=== PATIENT | female | born 1955 | race Caucasian/White ===

== ENCOUNTER 2021-10-04 08:24 | Inpatient (IN) | payer OTHER, SELFPAY ==
[2021-10-04] VITALS (37 sets, daily range): BP systolic 93–125; BP diastolic 46–69; PULSE 70–96; RESP 14–35; TEMP 36.1–36.4; O2SAT 89–100; BMI 28.5
--- NOTE | ~2021-10-04 | US_ITS ---
EXAMINATION: US right upper quadrant DATE: 10/04/2021 15:53 INDICATION: Abdominal pain. TECHNIQUE: Multiple grayscale and Doppler ultrasound images of the abdomen were obtained. COMPARISON: CT abdomen and pelvis 10/04/2021 FINDINGS: The visualized portions of the head and body of the pancreas are normal. The liver is arnold l without focal lesion. No liver surface nodularity. There is normal flow in main portal vein. The ga llbladder is normal in size and contains gallstones. No gallbladder wall thickening or sonographic Mu rphy sign. The common duct is normal and measures 6 mm. IMPRESSION: 1. Cholelithiasis. No evidence of acute cholecystitis. Reviewed, dictated and finalized at location B. NESS PROGRAMMER
--- NOTE | ~2021-10-04 | CT_ITS ---
EXAMINATION: CT abdomen pelvis wo con EXAM DATE: 10/04/2021 11:03 INDICATION: Abdominal pain, fall. Altered mental status. TECHNIQUE: Spiral CT of the abdomen and pelvis was performed without contrast. Axial, coronal and s agittal images of the abdomen and pelvis were reviewed. The dose-length product (DLP) for this [facility] was 395.73 mGy-cm. The exposure was tailored according to patient size (auto mA exposure cont rol), and iterative reconstruction (ASIR) was used as additional dose reduction technique. There is no prior study for comparison. FINDINGS: The liver, spleen, adrenal glands and pancreas are unremarkable. Multiple gallstones, gall bladder is moderately distended. No adjacent inflammation. There is punctate right superior calyceal stone. No ureteral stones or hydronephrosis. The uterus is not identified and has likely been surgi sandra resected. The bladder is collapsed with Alonzo catheter balloon anchor inside. There is no ret roperitoneal or pelvic lymphadenopathy. There is mild scattered arteriosclerotic disease. There is colectomy with right lower quadrant ileostomy. The stomach and small bowel are unremarkable . No free intraperitoneal gas. The heart is normal in size. There are no pericardial or pleural effusions. The lung bases are unremarkable. There is L2 burst fracture with moderate to severe loss of this vertebral body height centrally, mild loss of the height anteriorly and posteriorly. There i s about 3 mm retropulsion of the superior half of this vertebral body, causing mild central canal [place] nosis. This is most likely chronic. There are no acute fractures identified. IMPRESSION: 1. No acute solid organ injury or fracture suspected. 2. L2 burst fracture which appears most likely chronic, mild retropulsion and central canal stenosis . 3. Cholelithiasis, moderate ascites gallbladder but no adjacent inflammation. 4. Colectomy, ileostomy. 5. Punctate right nephrolithiasis. Reviewed, dictated and finalized at location A. ESQUE DANCER IMPRESSION: 1. No acute solid organ injury or fracture suspected. 2. L2 burst fracture which appears most likely chronic, mild retropulsion and central canal stenosis. 3. Cholelithiasis, moderate ascites gallbladder but no adjacent inflammation. 4. Colectomy, ileostomy. 5. Punctate right nephrolithiasis.
--- NOTE | ~2021-10-04 | CT_ITS ---
EXAMINATION: CT brain wo con EXAM DATE: 10/04/2021 09:30 INDICATION: Head impact, injury. TECHNIQUE: Spiral CT of the head was performed without contrast. Axial, coronal and sagittal images were reviewed. The dose-length product (DLP) for this examination was 681.00 mGy-cm. The exposure w as tailored according to patient size, and iterative reconstruction (ASIR) was used as additional dos e reduction technique. There is no prior study for comparison. FINDINGS: There is no acute intraparenchymal hemorrhage. No evidence of intraparenchymal brain mass lesion. No evidence of acute infarction. Please note that initial head CT has limited sensitivity f or small or acute infarctions. Small old right cerebellar infarction. There is moderate periventric ular and subcortical hypodensity, nonspecific but probably related to small vessel ischemic disease. There is mild prominence of the sulci and ventricles related to cerebral atrophy. There is intrac ranial carotid arteriosclerosis. There are no extra-axial collections. There is no mass effect or m idline shift. The orbits are unremarkable. Soft tissue is unremarkable. The visualized sinuses and mastoid air cells are well aerated. IMPRESSION: 1. No acute intracranial findings. 2. Chronic age related findings. 3. Small old right cerebellar infarction. Reviewed, dictated and finalized at location A. IGRAPH OPERATOR
--- NOTE | ~2021-10-04 | XR_ITS ---
EXAMINATION: XR chest 1V DATE: 10/04/2021 09:39 INDICATION: Fatigue. Very sleepy. TECHNIQUE: frontal view of the chest was obtained. COMPARISON: None FINDINGS: The lungs are clear with no focal airspace opacities, pulmonary edema, pleural effusion or pneumothor ax. The cardiomediastinal silhouette is normal. Visualized bones and soft tissues are unremarkable. IMPRESSION: 1. No acute cardiopulmonary disease. Reviewed, dictated and finalized at location A. ERTY MANAGEMENT SUPERVISOR
--- NOTE | ~2021-10-04 | US_ITS ---
EXAMINATION: US renal BI DATE: 10/04/2021 15:55 INDICATION: Acute kidney injury. TECHNIQUE: Multiple ultrasound grayscale images of the kidneys were obtained. COMPARISON: CT abdomen and pelvis 10/04/2021 FINDINGS: The right kidney measures 10.5 x 5.0 x 6.0 cm. The left kidney measures 10.9 x 4.4 x 6.3 cm. The kidn eys demonstrate normal parenchymal echogenicity. There is no hydronephrosis. The bladder is normal. IMPRESSION: 1. Normal kidney sizes. No hydronephrosis. Reviewed, dictated and finalized at location B. CINE AND HEALTH SERVICE MANAGER
--- NOTE | 2021-10-04 09:43 | ED.GENADULT ---
HPI - General Adult General Chief complaint: Fall Stated complaint: fall Time Seen by Provider: 10/04/21 09:02 Source: patient, EMS and RN notes reviewed Mode of arrival: EMS Limitations: dementia History of Present Illness HPI narrative: Patient is a 66-year-old female coming from [facility] for chief complaint of throwing herself once of the floor in the dining room. EMS reported that the patient is alert to self which is her baseline. They report she has bruising over the left brow. They are not sure if this is from the fall in the dining room or patient's other recurrent falls. Patient reports that she has abdominal pain. They reported the patient is currently being treated for a UTI, but no antibiotics are noted to her medication list. Patient reports she has a ileostomy due to colon resection due to colon cancer. Patient denies any chest pain, cough or other areas of pain. Patient has an indwelling Alonzo catheter. Patient denies recently testing positive for COVID. Related Data Home Medications Medication Instructions Recorded Confirmed alprazolam [Xanax] 0.5 mg PO BID 10/04/21 atorvastatin 10 mg PO HS 10/04/21 docosahexaenoic acid-epa [Fish Oil] 1 cap PO DAILY 10/04/21 fluoxetine 20 mg PO DAILY 10/04/21 gemfibrozil 600 mg PO BID 10/04/21 glipizide 5 mg PO DAILY 10/04/21 insulin glargine [Lantus Solostar unit SUBCUT QAM 10/04/21 U-100 Insulin] metformin 500 mg PO DAILY 10/04/21 metoprolol tartrate 25 mg PO BID 10/04/21 olanzapine 5 mg PO TID 10/04/21 pantoprazole [Protonix] 40 mg PO QAM 10/04/21 sodium bicarbonate 650 mg PO TID 10/04/21 Allergies Allergy/AdvReac Type Severity Reaction Status Date / Time No Known Allergies Allergy Verified 10/04/21 08:32 Review of Systems Review of Systems: CONSTITUTIONAL: Denies fever, chills, or sweats. EYES: Denies visual changes, redness, or discharge. ENT: Denies rhinorrhea, congestion, sore throat, or otalgia. CARDIOVASCULAR: Denies chest pain, palpitations, or edema. RESPIRATORY: Denies cough or dyspnea. GASTROINTESTINAL: Reports abdominal pain, denies nausea, vomiting, or diarrhea. GENITOURINARY: Denies dysuria or hematuria. SKIN: Denies rash or itching. MUSCULOSKELETAL: Denies back pain, joint pain, or myalgia. NEUROLOGIC: Denies headache, numbness, dizziness, or weakness. PSYCHIATRIC: Denies anxiety or depression. [facility] Past Medical History Medical History (Updated 10/04/21 @ 13:32 by Cesar Rose MD) Chronic indwelling Alonzo catheter Dementia Depression with anxiety Diabetes mellitus History of colon cancer Hyperlipidemia Exam Narrative: GENERAL: Well-nourished and in no acute distress. Patient falling asleep during evaluation will wake to answer questions. HEAD: Normocephalic. Bruise to left brow, does not appear acute. No lacerations noted. EYES: PERRLA and EOMI. CHEST: Clear to auscultation. No respiratory distress. No wheezes rales or rhonchi HEART: Regular rate and rhythm. ABDOMEN: Soft, patient reports pain to lower quadrants but does not guard, ileostomy noted to right lower quadrant, nondistended, bowel sounds present. EXTREMITIES: Muscle wasting noted to lower extremities. SKIN: Warm, dry, no rash. NEURO: No focal deficits. Alert to person. PSYCH: Normal mood and affect. Course Vital Signs Vital signs: Vital Signs Temperature 97.0 F L 10/04/21 08:21 Pulse Rate 82 10/04/21 08:21 Respiratory Rate 24 H 10/04/21 08:21 Blood Pressure 96/55 L 10/04/21 08:21 Pulse Oximetry 100 10/04/21 08:21 Temperature 97.0 F L 10/04/21 08:21 Pulse Rate 87 10/04/21 09:04 Respiratory Rate 28 H 10/04/21 09:04 Blood Pressure 114/63 10/04/21 09:04 Pulse Oximetry 98 10/04/21 12:19 Medical Decision Making MDM Narrative Medical decision making narrative: Consult placed to hospitalist for admission. Patient has urinary tract infection with acute kidney injury and hyperkalemia. Also will c
[2021-10-04] MEDS: SODIUM CHLORIDE 0.9% IV 1,000 ML 999 ML IV CONT ×2 (09:47→10:47)
[2021-10-04 10:05] LABS: Basophils Percent Auto 0.3 % (0.2-1.2); Eosinophils Percent Auto 0.3 % (0-4.4); Hematocrit 37.3 % (37.0-47.0); Hemoglobin 11.7 g/dL (12.0-15.0); Immature Granulocyte Absolute 0.04 K/mm3 (0.00-0.031); Immature Granulocyte Percent A 0.4 % (0-0.5); Lymphocytes Absolute Auto 1.04 K/mm3 (0.9-3.2); Lymphocytes Percent Auto 10.5 % (18.3-44.2); Mean Corpuscular HGB Conc 31.4 g/dl (32-36); Mean Corpuscular Hemoglobin 28.1 pg (26-34); Mean Corpuscular Volume 89.4 fl (80-100); Mean Platelet Volume 9.1 fl (7.4-10.4); Monocytes Absolute Auto 1.2 K/mm3 (0.1-0.6); Monocytes Percent Auto 11.7 % (2.6-8.5); Neutrophils Absolute Auto 7.6 K/mm3 (1.3-6.7); Neutrophils Percent Auto 76.8 % (45.5-73.1); Platelet Count Result 438 k/mm3 (150-375); Red Blood Count 4.17 M/mm3 (4.2-5.4); Red Cell Distribution Width 14.4 % (11.5-14.5); White Blood Count 9.9 K/mm3 (4.5-10.0)
[2021-10-04 10:07] LABS: EDCOVIDSCREEN Negative (Negative)
[2021-10-04 10:15] LABS: Add Urine Microscopic? YES; Appearance Urine Turbid (Clear); Bacteria Urine Trace /hpf; Bilirubin Urine Negative (Negative); Blood Urine 2+ (Negative); Color Urine Yellow (Yellow); Glucose Urine UA 2+ mg/dL (Negative); Ketones Urine Negative (Negative); Leukocyte Esterase Ur 3+ LEU/UL (Negative); Mucus Urine Rare /lpf; Nitrate Urine Negative (Negative); Protein Urine 2+ mg/dL (Negative); RBC Urine 51-75 /hpf (0-2); Specific Grav Ur 1.016 (1.001-1.035); Squamous Epithelial Cell Urine Few /hpf (Few); Urobilinogen Urine Negative mg/dL (<2.0); WBC Urine >75 /hpf
[2021-10-04 10:25] LABS: Alanine Aminotransferase 13 U/L (4-35); Albumin Level 4.7 g/dL (3.5-5.1); Alkaline Phosphatase 99 U/L (38-126); Anion Gap 19 mmol/L (8-16); Aspartate Amino Transferase 24 U/L (14-36); Bilirubin,Total 0.6 mg/dL (0.2-1.3); Blood Urea Nitrogen 85 mg/dL (7-17); Calcium 10.1 mg/dL (8.4-10.2); Carbon Dioxide 16 mmol/L (22-30); Chloride 103 mmol/L (98-107); Estimated CRCL calculation 12 ml/min; Estimated Glomerular Filt Rate 9; Glucose 116 mg/dL (65-110); Potassium 5.6 mmol/L (3.4-5.0); Sodium 138 mmol/L (137-145)
--- NOTE | 2021-10-04 11:24 | ECG_ITS ---
Measurements Intervals [place] Rate: 80 P: 44 NV: 155 QRS: -2 QRSD: 134 T: 56 QT: 415 QTc: 480 Interpretive Statements SINUS RHYTHM RIGHT BUNDLE BRANCH BLOCK BASELINE ARTIFACT- I, II, AVR, AVL, AVF, V1, V3-V6 ABNORMAL ECG Electronically Signed On 10-04-2021 12:07:10 FACILITIES OPERATOR by Hussein Sweet D.O.
[2021-10-04 12:11] LABS: Glucose Point of Care 31 mg/dl (65-105)
[2021-10-04 12:17] LABS: Anion Gap 12 mmol/L (8-16); Blood Urea Nitrogen 81 mg/dL (7-17); Calcium 8.4 mg/dL (8.4-10.2); Carbon Dioxide 16 mmol/L (22-30); Chloride 110 mmol/L (98-107); Estimated CRCL calculation 14 ml/min; Estimated Glomerular Filt Rate 11; Glucose 42 mg/dL (65-110); Potassium 5.2 mmol/L (3.4-5.0); Sodium 138 mmol/L (137-145)
[2021-10-04] MEDS: DEXTROSE 50% 25 GM/50 ML SYRINGE IV PUSH (12:17)
[2021-10-04 12:58] LABS: Glucose Point of Care 148 mg/dl (65-105)
[2021-10-04 13:11] LABS: Anion Gap 13 mmol/L (8-16); Blood Urea Nitrogen 79 mg/dL (7-17); Calcium 8.6 mg/dL (8.4-10.2); Carbon Dioxide 13 mmol/L (22-30); Chloride 109 mmol/L (98-107); Estimated CRCL calculation 15 ml/min; Estimated Glomerular Filt Rate 12; Glucose 171 mg/dL (65-110); Potassium 5.3 mmol/L (3.4-5.0); Sodium 135 mmol/L (137-145)
--- NOTE | 2021-10-04 13:27 | PM.IMHP ---
H&P: HPI History of Present Illness Date/Time: 10/04/21 13:27 Chief Complaint: Fall Narrative: 66yo female with dementia and CKD who is brought into the ED from the custodial for a fall and found to have renal failure. Patient is somnolent but arouses and follows commands but is unable to provide history. A majority of the hx obtained from the notes. Staff state that this morning, the patient 'threw herself to the floor' Possibly hitting her head. Staff stated patient had. 60 seconds that she would respond to staff. EMS was contacted. Glucose was 214. Vital signs are stable. Patient had a contusion on the right forehead felt to be old. There was a left eyebrow contusion thought to be new. Patient was alert to verbal stimuli. She did not respond EMS and staff states that this is the patient's normal mental status. Patient is stated 1 point though that she had pain in her abdomen for 3 days. She is brought to the emergency room for evaluation. In the ED, she was mildly tachypneic at respiratory 27 and a blood pressure 96/55. CT of the brain showed small old right cerebellar infarcts but no acute findings. Chest x-ray was clear. CT of the abdomen showed colectomy with ileostomy, cholelithiasis and moderately distended gallbladder. There is a chronic L2 burst fracture noted causing mild central canal stenosis. Potassium was 5.2 with a bicarb of 16, normal anion gap and hypoglycemia. BUN is 81 with creatinine 4.1. Not clear on baseline renal function. UA consistent with UTI. She has a chronic indwelling Alonzo. She was treated with Rocephin and started on IV fluids. She was admitted for further care. Review of Systems Review of Systems: ROS unobtainable: Yes unobtainable due to mental status PMFSH Past Medical History Medical History (Updated 10/05/21 @ 13:48 by Cesar Rose MD) Anemia Calculus of gallbladder without cholecystitis without obstruction Chronic indwelling Alonzo catheter Chronic kidney disease, stage 3b Depression with anxiety Diabetes mellitus Gastro-esophageal reflux disease without esophagitis History of colon cancer Hyperlipidemia Ileostomy in place Parastomal hernia without obstruction or gangrene Repeated falls Vascular dementia with behavioral disturbance Surgical History Surgical History (Updated 10/04/21 @ 14:13 by Cesar Rose MD) Hx of colectomy Family History Family History Other Family history unknown Social History Social History (Updated 10/04/21 @ 14:16 by Cesar Rose MD) Social History: Listed as DNR. She resides at [facility]. Never smoked. . No family listed on face sheet from the MD. Smoking status: Never smoker Alcohol intake: never Substance use: never Spiritual care concerns: No Meds Home Medications and Allergies Home Medications Medication Instructions Recorded Confirmed Type alprazolam [Xanax] 0.5 mg PO BID 10/04/21 10/04/21 History atorvastatin 10 mg PO HS 10/04/21 10/04/21 History docosahexaenoic acid-epa [Fish Oil] 1 cap PO DAILY 10/04/21 10/04/21 History fluoxetine 20 mg PO DAILY 10/04/21 10/04/21 History gemfibrozil 600 mg PO BID 10/04/21 10/04/21 History glipizide 5 mg PO DAILY 10/04/21 10/04/21 History insulin glargine [Lantus Solostar 40 unit SUBCUT QAM 10/04/21 10/04/21 History U-100 Insulin] insulin lispro [Humalog KwikPen 15 unit SUBCUT TIDWM 10/04/21 10/04/21 History Insulin] insulin lispro [Humalog KwikPen See Rx Instructions .ROUTE .COMPLEX 10/04/21 10/04/21 History Insulin] metformin 500 mg PO DAILY 10/04/21 10/04/21 History metoprolol tartrate 25 mg PO BID 10/04/21 10/04/21 History olanzapine 5 mg PO TID 10/04/21 10/04/21 History pantoprazole [Protonix] 40 mg PO QAM 10/04/21 10/04/21 History sodium bicarbonate 650 mg PO TID 10/04/21 10/04/21 History Allergies Allergy/AdvReac Type Severity Reaction Status Date
[2021-10-04] MEDS: SODIUM CHLORIDE 0.9% IV 1,000 ML 125 ML IV CONT (13:43)
[2021-10-04 14:11] LABS: Glucose Point of Care 124 mg/dl (65-105)
[2021-10-04] MEDS: SODIUM BICARBONATE 8.4% 100 MEQ in WATER, STERILE FOR INJECTION 1,000 ML 50 MEQ IV CONT (15:29)
--- NOTE | 2021-10-04 15:47 | ADMGEN ---
This patient, Danii Mendez, was admitted to Medical Room 255-. Patient/family oriented to hospital policies and general routines including ID bracelet, bed and alarms, visiting hours, pain management, procedures, bathroom and other care routines, personal items, smoking policy, room service/diet, and visiting hours. Information on how to activate the Rapid Response Team has been discussed. Patient/Family are encouraged to report perceived risks to care and to ask questions if they do not understand what they are told or what they should do.
[2021-10-04 17:09] LABS: Glucose Point of Care 126 mg/dl (65-105)
[2021-10-04 17:45] LABS: Creatinine Urine 47.7 mg/dL
[2021-10-04 17:55] LABS: Sodium Urine Random 87 meq/L
[2021-10-04 18:42] LABS: Eosinophil Urine None Seen % (None Seen)
[2021-10-04 19:28] LABS: Albumin Level 3.9 g/dL (3.5-5.1); Anion Gap 13 mmol/L (8-16); Blood Urea Nitrogen 73 mg/dL (7-17); CRP 2.6 mg/dL (<1.0); Calcium 8.7 mg/dL (8.4-10.2); Carbon Dioxide 15 mmol/L (22-30); Chloride 110 mmol/L (98-107); Creatine Kinase 58 U/L (30-135); Estimated Glomerular Filt Rate 14; Glucose 115 mg/dL (65-110); Phosphorus 5.9 mg/dL (2.5-4.5); Potassium 5.3 mmol/L (3.4-5.0); Sodium 138 mmol/L (137-145)
[2021-10-04 19:32] LABS: Complement C3 163 mg/dL (88-165)
[2021-10-04] MEDS: ATORVASTATIN 10 MG TABLET PO (21:05)
[2021-10-04] MEDS: HEPARIN SODIUM 5,000 UNITS/ML VIAL 5000 UNITS SUB-Q (21:10)
[2021-10-04 21:23] LABS: Glucose Point of Care 70 mg/dl (65-105)
[2021-10-05] VITALS (9 sets, daily range): BP systolic 111–133; BP diastolic 51–87; PULSE 84–108; RESP 16–20; TEMP 36.2–36.5; O2SAT 96–98
--- NOTE | 2021-10-05 04:14 | PC.NURSE ---
Pt given apple juice and lunch box for 2110 BG of 70. Pt drank entire juice and ate majority of food.
[2021-10-05] MEDS: HYDROmorphone HCL (*CRX) 1 MG TABLET PO ×2 (06:01→12:44)
[2021-10-05 07:40] LABS: Glucose Point of Care 101 mg/dl (65-105)
[2021-10-05] MEDS: ALPRAZolam (*CRX) 0.5 MG TABLET PO ×2 (08:36→16:34)
[2021-10-05] MEDS: SODIUM BICARBONATE TAB 650 MG TABLET PO ×3 (08:36→16:34)
[2021-10-05] MEDS: FLUoxetine HCL 20 MG CAPSULE PO (08:36)
[2021-10-05] MEDS: OLANZapine 5 MG TABLET PO ×3 (08:36→16:34)
[2021-10-05] MEDS: PANTOPRAZOLE 40 MG TABLET PO (08:37)
[2021-10-05] MEDS: HEPARIN SODIUM 5,000 UNITS/ML VIAL 5000 UNITS SUB-Q ×2 (08:42→21:57)
[2021-10-05 08:58] LABS: Basophils Percent Auto 0.6 % (0.2-1.2); Eosinophils Absolute Auto 0.3 K/mm3 (0-0.3); Hemoglobin 10.8 g/dL (12.0-15.0); Immature Granulocyte Absolute 0.02 K/mm3 (0.00-0.031); Immature Granulocyte Percent A 0.3 % (0-0.5); Lymphocytes Absolute Auto 1.12 K/mm3 (0.9-3.2); Lymphocytes Percent Auto 17.1 % (18.3-44.2); Mean Corpuscular HGB Conc 30.9 g/dl (32-36); Mean Corpuscular Hemoglobin 27.9 pg (26-34); Mean Corpuscular Volume 90.4 fl (80-100); Mean Platelet Volume 9.2 fl (7.4-10.4); Monocytes Absolute Auto 0.8 K/mm3 (0.1-0.6); Monocytes Percent Auto 11.5 % (2.6-8.5); Neutrophils Absolute Auto 4.4 K/mm3 (1.3-6.7); Neutrophils Percent Auto 66.5 % (45.5-73.1); Platelet Count Result 384 k/mm3 (150-375); Red Blood Count 3.87 M/mm3 (4.2-5.4); Red Cell Distribution Width 14.2 % (11.5-14.5); White Blood Count 6.6 K/mm3 (4.5-10.0)
[2021-10-05 10:11] LABS: Anion Gap 16 mmol/L (8-16); Blood Urea Nitrogen 54 mg/dL (7-17); Calcium 9.1 mg/dL (8.4-10.2); Carbon Dioxide 18 mmol/L (22-30); Chloride 106 mmol/L (98-107); Estimated Glomerular Filt Rate 20; Glucose 192 mg/dL (65-110); Phosphorus 4.3 mg/dL (2.5-4.5); Potassium 4.7 mmol/L (3.4-5.0); Sodium 140 mmol/L (137-145)
[2021-10-05 10:24] LABS: Hemoglobin A1C 8.4 % (<5.7)
[2021-10-05 11:42] LABS: Glucose Point of Care 222 mg/dl (65-105)
[2021-10-05 11:42] LABS: Glucose Point of Care 323 mg/dl (65-105)
[2021-10-05] MEDS: SODIUM BICARBONATE 8.4% 100 MEQ in WATER, STERILE FOR INJECTION 1,000 ML 50 MEQ IV CONT (12:02)
[2021-10-05] MEDS: INSULIN ASPART (*BKC) 100 UNITS/ML SUB-Q ×2 (12:02→16:34)
[2021-10-05 13:24] LABS: Thyroid Stimulating Hormone Reflex < 0.015 uIU/mL (0.465-4.68)
--- NOTE | 2021-10-05 13:43 | PM.IMPN ---
Progress Note: A&P Assessment and Plan (1) Acute hyperkalemia: Code(s): E87.5 - Hyperkalemia Status: Acute Assessment and Plan: Potassium 5.2 on admission related to the TONNY. Potassium normal now as renal function has improved. Follow. Continue renal diet. (2) Acute on chronic kidney failure: Qualifiers: Acute renal failure type: unspecified Chronic kidney disease stage: unspecified stage Qualified Code(s): N17.9 - Acute kidney failure, unspecified; N18.9 - Chronic kidney disease, unspecified Code(s): N17.9 - Acute kidney failure, unspecified; N18.9 - Chronic kidney disease, unspecified Status: Acute Assessment and Plan: BUN was 81 and creatinine 4.1 on admission. Baseline renal function discovered to be 2.2. Serum Bicarb dropped to 13. Etiology probably related to dehydration possibly from high output from her ileostomy. Consider also ATN from UTI. CT abdomen showing no ureteral stones or hydronephrosis. Renal US showing no acute findings. Currently on IV fluids with bicarb. Urine studies noted and more consistent with renal disease. No Ueos. Cr has trended down to 2.4 and serum bicarb better at 18. Will let the IVF with bicarb run out. (3) Diabetes mellitus: Code(s): E11.9 - Type 2 diabetes mellitus without complications Status: Acute Assessment and Plan: A1c 8.4. Patient with diabetes and noted to be hypoglycemic on admission with glucose 42. Glucose was 214 by EMS. She was treated in the emergency room with D50. Glucose higher now that she is eating. Resume home medications except glipizide. Continue sliding scale. Watch for lows. (4) Hyperthyroidism: Code(s): E05.90 - Thyrotoxicosis, unspecified without thyrotoxic crisis or storm Status: Acute Assessment and Plan: TSH undetectable. FT4 pending. Not on thyroid medications. Check TSI. (5) UTI (urinary tract infection): Qualifiers: Hematuria presence: with hematuria Urinary tract infection type: acute cystitis Qualified Code(s): N30.01 - Acute cystitis with hematuria Code(s): N39.0 - Urinary tract infection, site not specified Status: Acute Assessment and Plan: UA noted. Patient probably has complicated UTI related to her chronic indwelling Alonzo catheter. Unclear why she has chronic Alonzo. UCx pending. Will continue Rocephin. Followup on blood and urine cultures. (6) Vascular dementia with behavioral disturbance: Code(s): F01.51 - Vascular dementia with behavioral disturbance Status: Acute Assessment and Plan: Patient with mental status changes prior to admission. According to staff at the facility, kristy 'threw herself to the floor'. Also states patient will sometimes not respond to questions. CT the brain showing no acute findings. She does have vascular dementia with behavioral disorders. Mental status better today. Continue Zyprexa, Ativan and Prozac. Continue to monitor. Continue PT/OT. (7) Cholelithiasis: Code(s): K80.20 - Calculus of gallbladder without cholecystitis without obstruction Status: Acute Assessment and Plan: CT scan showing multiple gallstones and gallbladder is moderately distended but no adjacent inflammation. RUQ US showing cholelithiasis but no evidence of acute cholecystitis. Abd pain resolved clinically. (8) Chronic kidney disease, stage 3b: Code(s): N18.32 - Chronic kidney disease, stage 3b Status: Acute Assessment and Plan: Patient has CKD listed in her past medical history. Baseline creatinine is 2.2 drawn earlier this month. Continue to monitor. (9) Chronic indwelling Alonzo catheter: Code(s): Z97.8 - Presence of other specified devices Status: Acute Assessment and Plan: Patient has a chronic indwelling Alonzo catheter for unclear reasons. Alonzo catheter has been changed out (10) DVT prophylaxis: Code(s): Z2
[2021-10-05 14:16] LABS: Free T4 Free Thyroxine Reflex 2.07 ng/dL (0.78-2.19)
[2021-10-05 15:13] LABS: Total Triiodothyronine (T3) 1.22 NG/ML (0.97-1.69)
[2021-10-05 15:32] LABS: Alanine Aminotransferase 12 U/L (4-35); Albumin Level 4.2 g/dL (3.5-5.1); Alkaline Phosphatase 113 U/L (38-126); Aspartate Amino Transferase 20 U/L (14-36); Bilirubin,Total 0.2 mg/dL (0.2-1.3); Magnesium 2.2 mg/dL (1.6-2.3)
[2021-10-05 16:21] LABS: Glucose Point of Care 218 mg/dl (65-105)
[2021-10-05] MEDS: INSULIN ASPART (*BKC) 100 UNITS/ML 15 UNITS SUB-Q (16:35)
[2021-10-05] MEDS: METOPROLOL TARTRATE 25 MG TABLET PO (21:54)
[2021-10-05] MEDS: ATORVASTATIN 10 MG TABLET PO (21:54)
[2021-10-05 22:14] LABS: Glucose Point of Care 210 mg/dl (65-105)
[2021-10-06] MEDS: HYDROmorphone HCL (*CRX) 1 MG TABLET PO ×2 (03:32→11:13)
[2021-10-06 06:00] VITALS: BP 128/47; PULSE 80; RESP 18; TEMP 36.3; O2SAT 97
[2021-10-06 06:20] LABS: Anion Gap 12 mmol/L (8-16); Blood Urea Nitrogen 39 mg/dL (7-17); Carbon Dioxide 22 mmol/L (22-30); Chloride 105 mmol/L (98-107); Estimated Glomerular Filt Rate 28; Glucose 304 mg/dL (65-110); Phosphorus 3.5 mg/dL (2.5-4.5); Potassium 4.9 mmol/L (3.4-5.0); Sodium 139 mmol/L (137-145)
[2021-10-06] MEDS: INSULIN ASPART (*BKC) 100 UNITS/ML SUB-Q (07:49)
[2021-10-06 07:50] LABS: Hematocrit 32.5 % (37.0-47.0); Hemoglobin 10.3 g/dL (12.0-15.0); Mean Corpuscular HGB Conc 31.7 g/dl (32-36); Mean Corpuscular Volume 88.3 fl (80-100); Platelet Count Result 366 k/mm3 (150-375); Red Blood Count 3.68 M/mm3 (4.2-5.4); Red Cell Distribution Width 13.5 % (11.5-14.5)
[2021-10-06] MEDS: INSULIN ASPART (*BKC) 100 UNITS/ML 15 UNITS SUB-Q ×2 (07:50→11:54)
[2021-10-06] MEDS: INSULIN GLARGINE (*BKC) 100 UNITS/ML 40 UNITS SUB-Q (07:51)
[2021-10-06 08:10] LABS: Glucose Point of Care 240 mg/dl (65-105)
[2021-10-06] MEDS: ALPRAZolam (*CRX) 0.5 MG TABLET PO (09:07)
[2021-10-06] MEDS: OLANZapine 5 MG TABLET PO ×2 (09:07→12:49)
[2021-10-06] MEDS: SODIUM BICARBONATE TAB 650 MG TABLET PO ×2 (09:07→12:49)
[2021-10-06 09:08] VITALS: PULSE 84
[2021-10-06] MEDS: METOPROLOL TARTRATE 25 MG TABLET PO (09:08)
[2021-10-06] MEDS: FLUoxetine HCL 20 MG CAPSULE PO (09:08)
[2021-10-06] MEDS: PANTOPRAZOLE 40 MG TABLET PO (09:08)
[2021-10-06 10:16] LABS: EDCOVIDSCREEN Negative (Negative)
[2021-10-06] MEDS: HEPARIN SODIUM 5,000 UNITS/ML VIAL 5000 UNITS SUB-Q (11:16)
[2021-10-06 12:02] LABS: Glucose Point of Care 158 mg/dl (65-105)
[2021-10-06 12:02] LABS: Glucose Point of Care 142 mg/dl (65-105)
--- NOTE | 2021-10-06 13:10 | PM.DS ---
DS: Admitting Diagnosis Discharge Date 10/06/21 Admitting Diagnosis Altered mental status DS: Discharge Diagnosis Discharge Diagnosis (1) Acute hyperkalemia: Code(s): E87.5 - Hyperkalemia Status: Acute Assessment and Plan: Potassium 5.2 on admisison and about the same on repeat. [place] related to the TONNY. No kayexalate due to her presumed high output from her ileostomy. Treated with IV fluids and potassium normalized. (2) Acute on chronic kidney failure: Qualifiers: Acute renal failure type: unspecified Chronic kidney disease stage: unspecified stage Qualified Code(s): N17.9 - Acute kidney failure, unspecified; N18.9 - Chronic kidney disease, unspecified Code(s): N17.9 - Acute kidney failure, unspecified; N18.9 - Chronic kidney disease, unspecified Status: Acute Assessment and Plan: BUN was 81 and creatinine 4.1 on admission. Baseline renal function discovered to be 2.2. Serum Bicarb dropped to 13. Etiology probably related to dehydration possibly from high output from her ileostomy. Consider also ATN from UTI. She is not on diuretics. CT abdomen showing no ureteral stones or hydronephrosis. Renal US showing no acute findings. Treated with IV fluids with bicarb. Urine studies noted and more consistent with renal disease. No Ueos. Cr has trended down to 1.8 and serum bicarb better at 22. Patietn feels better and eating normally. (3) Diabetes mellitus: Code(s): E11.9 - Type 2 diabetes mellitus without complications Status: Acute Assessment and Plan: A1c 8.4. Patient with diabetes and noted to be hypoglycemic on admission with glucose 42. Glucose was 214 by EMS. She was treated in the emergency room with D50. Glucose higher now that she is eating. We resumed home medications except glipizide. Treated with sliding scale. (4) Hyperthyroidism: Code(s): E05.90 - Thyrotoxicosis, unspecified without thyrotoxic crisis or storm Status: Acute Assessment and Plan: TSH undetectable. FT4 normal. Not on thyroid medications. TSI is pending. (5) UTI (urinary tract infection): Qualifiers: Hematuria presence: with hematuria Urinary tract infection type: acute cystitis Qualified Code(s): N30.01 - Acute cystitis with hematuria Code(s): N39.0 - Urinary tract infection, site not specified Status: Acute Assessment and Plan: UA noted. Patient probably has complicated UTI related to her chronic indwelling Alonzo catheter. Unclear why she has chronic Alonzo. UCx growing EColi that is pansensitive treated with Rocephin. BCx NGTD. (6) Vascular dementia with behavioral disturbance: Code(s): F01.51 - Vascular dementia with behavioral disturbance Status: Acute Assessment and Plan: Patient with mental status changes prior to admission. According to staff at the facility, kristy 'threw herself to the floor'. Also states patient will sometimes not respond to questions. CT the brain showing no acute findings. She does have vascular dementia with behavioral disorders. Mental status better today. We continued Zyprexa, Ativan and Prozac. (7) Cholelithiasis: Code(s): K80.20 - Calculus of gallbladder without cholecystitis without obstruction Status: Acute Assessment and Plan: CT scan showing multiple gallstones and gallbladder is moderately distended but no adjacent inflammation. RUQ US showing cholelithiasis but no evidence of acute cholecystitis. Abd pain resolved clinically. (8) Chronic kidney disease, stage 3b: Code(s): N18.32 - Chronic kidney disease, stage 3b Status: Acute Assessment and Plan: Patient has CKD listed in her past medical history. Baseline creatinine is 2.2 drawn earlier this month. As above (9) Chronic indwelling Alonzo catheter: Code(s): Z97.8 - Presence of other specified devices Status: Acute Assessment and Plan:
[2021-10-07 04:20] LABS: Albumin 3.4 g/dL (3.8-4.8); Alpha 1 Globulin 0.4 g/dL (0.2-0.3); Alpha 2 Globulin 1.1 g/dL (0.5-0.9); Beta 1 Globulin 0.5 g/dL (0.4-0.6); Protein, Total 6.9 g/dL (6.1-8.1)
[2021-10-07 10:43] LABS: Anti Streptolysin O Screen 50 IU/mL (<200)
[2021-10-07 16:03] LABS: Complement Total CH50 >60 U/mL (31-60)
[2021-10-11 14:34] LABS: Thyroid Stimulating Immunoglob <89 % baseline (<140)
--- NOTE | 2021-10-12 14:17 | PC.NURSE ---
SHANNEN negative SPEP- acute inflammatory pattern ASO- <[address] Milton escalona.
== END 2021-10-06 15:22 | DRG 683 ==
LOC: ANHED 11:29 → ANH2MED 14:19
PROVIDERS: Physician Assistant; Admitting Provider Internal Medicine; Emergency Provider Emergency Medicine; Visit Provider Internal Medicine
DX: N17.9 Acute kidney failure, unspecified (principal); T83.511A Infection and inflammatory reaction due to indwelling urethral catheter, initial encounter; F01.51 Vascular dementia, unspecified severity, with behavioral disturbance; N39.0 Urinary tract infection, site not specified; E87.5 Hyperkalemia; B96.20 Unspecified Escherichia coli [E. coli] as the cause of diseases classified elsewhere; S00.12XA Contusion of left eyelid and periocular area, initial encounter; L53.9 Erythematous condition, unspecified; D63.1 Anemia in chronic kidney disease; E11.649 Type 2 diabetes mellitus with hypoglycemia without coma; E05.90 Thyrotoxicosis, unspecified without thyrotoxic crisis or storm; E11.22 Type 2 diabetes mellitus with diabetic chronic kidney disease; F41.8 Other specified anxiety disorders; K80.20 Calculus of gallbladder without cholecystitis without obstruction; K21.9 Gastro-esophageal reflux disease without esophagitis; N18.32 Chronic kidney disease, stage 3b; R29.6 Repeated falls; W19.XXXA Unspecified fall, initial encounter; Z66 Do not resuscitate; Z93.2 Ileostomy status; Z20.822 Contact with and (suspected) exposure to COVID-19; Z85.038 Personal history of other malignant neoplasm of large intestine; Z79.84 Long term (current) use of oral hypoglycemic drugs; Z86.73 Personal history of transient ischemic attack (TIA), and cerebral infarction without residual deficits; Z79.4 Long term (current) use of insulin
CPT/HCPCS: 36415; 70450; 71045; 74176; 76705; 76775; 80048; 80053; 80069; 81001; 82248; 82550; 82570; 82948; 83036; 83735; 84100; 84155; 84165; 84300; 84439; 84443; 84445; 84480; 85025; 85027; 85999; 86038; 86060; 86140; 86160; 86162; 87040; 87077; 87086; 87088; 87186; 87426; 93005; 96361; 96365; 96366; 96375; 97110; 97161; 97165; 99285; A9270; C9803; G0378; J0696; J1644; J1815; J7030

== ENCOUNTER 2022-03-25 11:30 | Emergency (ER) | payer OTHER, SELFPAY ==
--- NOTE | ~2022-03-25 | CT_ITS ---
EXAMINATION: CT cervical spine wo con DATE: 03/25/2022 11:58 INDICATION: Fall. Neck pain. TECHNIQUE: Computed tomography (CT) of the cervical spine was performed without intravenous contrast. Automated exposure control and iterative reconstruction technique were employed. Exam dose: 385.19 mGy-cm total exam DLP. COMPARISON: None FINDINGS: There is levoscoliosis of the cervical spine. C1 and C2 are normally aligned and the odonto id process is intact. There is fusion of the apophyseal joints on the left at C2-3.. There is degenerative change at the re maining apophyseal joints. No fracture or dislocation or prevertebral soft tissue swelling is detected. IMPRESSION: Prominent scoliosis; no fracture Reviewed, dictated and finalized at [facility]. Reviewed, dictated and finalized at location [facility].
--- NOTE | ~2022-03-25 | CT_ITS ---
EXAMINATION: CT brain wo con DATE: 03/25/2022 11:58 INDICATION: Fall. Neck pain. TECHNIQUE: Computed tomography (CT) of the head was performed without intravenous contrast. The mA wa s adjusted according to patient size. Iterative reconstruction technique was employed. Exam dose: 60 5.33 mGy-cm total exam DLP. COMPARISON: 10/04/2021 CT brain FINDINGS: Small old cerebellar hemispheric infarct is again noted. Prominent bilateral vertebral artery and carotid siphon internal carotid artery calcifications. There is nonspecific diminished attenuation of the cerebral white matter, likely due to chronic small vess el ischemic changes. No intracranial mass lesion or hemorrhage or cerebrovascular accident is noted. No midline shift or mass effect effect. There is moderate cerebral volume loss. No subdural or epidural hematoma is detected. No fracture or bone destruction of the cranial vault. Mucous retention cyst or polyp, right maxillary sinus. Bilateral sphenoid sinus mucous retention cysts or polyps. Occasional ethmoid air cell opacif ication on each side. IMPRESSION: Cerebral atherosclerosis and chronic small vessel ischemic changes of the cerebral white matter Chronic small right cerebellar hemispheric infarct Cerebral volume loss No acute intracranial finding Reviewed, dictated and finalized at [facility]. Reviewed, dictated and finalized at location [facility].
--- NOTE | ~2022-03-25 | XR_ITS ---
XR knee LT 3V DATE: 03/25/2022 11:59 INDICATION: Fall TECHNIQUE: 3 views including crosstable lateral COMPARISON: None FINDINGS: There is osteopenia. Mild periarticular spurring of the patella. No fracture or dislocation, periosteal reaction or bone destruction. Joint spaces appear relatively p reserved. No radiopaque intra-articular loose body or chondrocalcinosis. Prominent calcification of the femoral and popliteal arteries. IMPRESSION: Osteopenia No fracture or dislocation or joint effusion Mild periarticular spurring of the patella Arterial calcification Reviewed, dictated and finalized at location [facility].
[2022-03-25 11:29] VITALS: BP 142/99; PULSE 82; RESP 24; TEMP 36.2; O2SAT 97
--- NOTE | 2022-03-25 11:38 | ED.FALL ---
HPI - Fall General Chief Complaint: Fall Stated Complaint: GLF WITH NECK PAIN Time Seen by Provider: 03/25/22 11:36 History of Present Illness HPI Narrative: slipped on bathroom floor no loc but neck pain and lef tknee pain after no other c/o no blood thinners and pt is a DNR Related Data Home Medications Medication Instructions Recorded Confirmed atorvastatin 10 mg tablet 10 mg PO HS 10/04/21 10/04/21 docosahexaenoic acid (dha)-epa 120 1 cap PO DAILY 10/04/21 10/04/21 mg-180 mg capsule (Fish Oil) fluoxetine 20 mg capsule 20 mg PO DAILY 10/04/21 10/04/21 gemfibrozil 600 mg tablet 600 mg PO BID 10/04/21 10/04/21 insulin glargine 100 unit/mL (3 40 unit subcut QAM 10/04/21 10/04/21 mL) subcutaneous pen (Lantus Solostar U-100 Insulin) insulin lispro 100 unit/mL 15 unit subcut TIDWM 10/04/21 10/04/21 subcutaneous pen (Humalog KwikPen (U-100) Insulin) insulin lispro 100 unit/mL See Rx Instructions .Route .COMPLEX 10/04/21 10/04/21 subcutaneous pen (Humalog KwikPen (U-100) Insulin) metoprolol tartrate 25 mg tablet 25 mg PO BID 10/04/21 10/04/21 olanzapine 5 mg tablet 5 mg PO TID 10/04/21 10/04/21 pantoprazole 40 mg tablet,delayed 40 mg PO QAM 10/04/21 10/04/21 release (Protonix) sodium bicarbonate 650 mg tablet 650 mg PO TID 10/04/21 10/04/21 Allergies Allergy/AdvReac Type Severity Reaction Status Date / Time No Known Allergies Allergy Verified 03/25/22 11:34 Review of Systems Constitutional: Comments: CONSTITUTIONAL: Denies fever, chills, or sweats. EYES: Denies visual changes, redness, or discharge. ENT: Denies rhinorrhea, congestion, sore throat, or otalgia. CARDIOVASCULAR: Denies chest pain, palpitations, or edema. RESPIRATORY: Denies cough or dyspnea. GASTROINTESTINAL: Denies abdominal pain, nausea, vomiting, or diarrhea. GENITOURINARY: Denies dysuria or hematuria. SKIN: Denies rash or itching. MUSCULOSKELETAL: Denies back pain, has neck and left knee pain, or myalgia. NEUROLOGIC: Denies headache, numbness, or weakness. PSYCHIATRIC: Denies anxiety or depression. [facility] Past Medical History Medical History (Updated 03/25/22 @ 12:49 by Monica Parra MD) Anemia Calculus of gallbladder without cholecystitis without obstruction Chronic indwelling Alonzo catheter Chronic kidney disease, stage 3b Depression with anxiety Diabetes mellitus Gastro-esophageal reflux disease without esophagitis History of colon cancer Hyperlipidemia Ileostomy in place Parastomal hernia without obstruction or gangrene Repeated falls Vascular dementia with behavioral disturbance Surgical History Surgical History (Updated 10/04/21 @ 14:13 by Cesar Rose MD) Hx of colectomy Family History Family History Other Family history unknown Social History Social History (Updated 10/04/21 @ 14:16 by Cesar Rose MD) Social History: Listed as DNR. She resides at [facility]. Never smoked. . No family listed on face sheet from the [place]. Smoking status: Never smoker Alcohol intake: never Substance use: never Spiritual care concerns: No Exam Const: Other: APPEARANCE: Well appearing, no pain in distress, well-nourished. Head normocephalic atraumtaic. EYES: PERRLA/EOMI, conjunctivae very clear. NOSE: Normal no drainage EARS:TMS clear Veronica Dawn, with good light reflex. THROAT: Pharynx clear, no exudate. NECK: Supple. No adenopathy, no masses. difuse minimal tend RESPIRATORY: Airway patent, repsirations nonlabored. Clear to auscultation bilaterally, no rales, rhonchi, wheezing. CARDIOVASCULAR: Regular rate and rhythm without murmurs rubs or gallops. ABDOMINAL: Soft, nontender, nondistended, no hepatosplenomegally MUSCULOSKELETAl: Moves all extremities. Strenght/ROM intact, No edema, No calf tenderness. has minikmal difuse tend left knee no deformity no hip/ankle pain no skin changes NEURO: Alert. Cranial nerves II
[2022-03-25 11:40] LABS: Glucose Point of Care 153 mg/dl (65-105)
[2022-03-25] MEDS: fentaNYL CITRATE INJ (*CRX) 100 MCG/2 ML VIAL 25 MCG IV PUSH (11:42)
[2022-03-25 12:13] VITALS: BP 170/74; PULSE 79; RESP 18; O2SAT 100
[2022-03-25 13:11] VITALS: BP 144/56; PULSE 84; RESP 18; O2SAT 100
[2022-03-25 13:45] VITALS: BP 145/62; PULSE 83; RESP 29; O2SAT 97
== END 2022-03-25 13:46 ==
PROVIDERS: Emergency Provider Emergency Medicine
DX: S16.1XXA Strain of muscle, fascia and tendon at neck level, initial encounter (principal); S80.02XA Contusion of left knee, initial encounter; E11.22 Type 2 diabetes mellitus with diabetic chronic kidney disease; N18.32 Chronic kidney disease, stage 3b; E78.5 Hyperlipidemia, unspecified; F01.50 Vascular dementia, unspecified severity, without behavioral disturbance, psychotic disturbance, mood disturbance, and anxiety; F01.51 Vascular dementia, unspecified severity, with behavioral disturbance; K21.9 Gastro-esophageal reflux disease without esophagitis; F41.8 Other specified anxiety disorders; Z86.2 Personal history of diseases of the blood and blood-forming organs and certain disorders involving the immune mechanism; Z85.038 Personal history of other malignant neoplasm of large intestine; Z79.4 Long term (current) use of insulin; Z66 Do not resuscitate; Z90.49 Acquired absence of other specified parts of digestive tract; I70.0 Atherosclerosis of aorta; W01.0XXA Fall on same level from slipping, tripping and stumbling without subsequent striking against object, initial encounter
CPT/HCPCS: 70450; 72125; 73562; 82948; 96374; 99284; J3010

== ENCOUNTER 2023-01-12 11:12 | Emergency (ER) | payer OTHER, SELFPAY ==
[2023-01-12] VITALS (20 sets, daily range): BP systolic 122–143; BP diastolic 55–75; PULSE 74–81; RESP 14–16; TEMP 36.2; O2SAT 90–100
--- NOTE | ~2023-01-12 | XR_ITS ---
[id number] 01/12/2023 12:42 Indication: Left knee pain after fall Procedure: 2 views left knee Comparison: No prior studies for comparison. Findings: There is a irregular ossification along the medial femoral condyle which may represent post traumatic ossification along medial collateral ligament or avulsion fracture. Correlate for point ten derness. There is mild osteoarthritis. Osteopenia. No significant joint effusion. Impression: 1: Irregular ossification along the medial femoral condyle which may represent posttraumatic ossifica tion along medial collateral ligament or avulsion fracture. Correlate for point tenderness. Reviewed, dictated and finalized at location A. Impression: 1: Irregular ossification along the medial femoral condyle which may represent posttraumatic ossification along medial collateral ligament or avulsion fractur e. Correlate for point tenderness.
--- NOTE | ~2023-01-12 | XR_ITS ---
XR shoulder RT min 2V 01/12/2023 12:42 Indication: Right shoulder pain Procedure: 4 views right shoulder Comparison: No prior studies for comparison. Findings: Osteopenia. No fracture, subluxation or dislocation. There is anatomic alignment. No signif icant soft tissue abnormality. Visualized lung parenchyma is unremarkable. Impression: 1: No acute bone or joint abnormality. Reviewed, dictated and finalized at location A. Impression: 1: No acute bone or joint abnormality.
--- NOTE | ~2023-01-12 | XR_ITS ---
XR hip LT min 2V 01/12/2023 12:42 Indication: Left hip pain after fall Procedure: 2 views left hip Comparison: No prior studies for comparison. Findings: Mild osteoarthritis of the left hip. There is atherosclerosis. No fracture, subluxation or dislocation. Impression: 1: No acute fracture. Reviewed, dictated and finalized at location A. Impression: 1: No acute fracture.
--- NOTE | ~2023-01-12 | CT_ITS ---
EXAMINATION: CT brain wo con DATE: 01/12/2023 11:27 INDICATION: . Status post fall. Head injury. TECHNIQUE: Computed tomography (CT) of the head was performed without intravenous contrast. The dose- length product was 681.00 mGy-cm. Automated exposure control and iterative reconstruction technique w ere employed. COMPARISON: CT dated 03/25/2022 FINDINGS: Generalized atrophy. There are scattered moderate periventricular and subcortical white mat ter changes, most likely related to small vessel ischemic disease (microangiopathy). There is intracr anial atherosclerosis. No ventriculomegaly or midline shift. Focal chronic right cerebellar infarctio n. No acute infarction, hemorrhage, mass or mass effect. IMPRESSION: 1. No acute intracranial abnormality. Reviewed, dictated and finalized at location A.
--- NOTE | ~2023-01-12 | CT_ITS ---
EXAMINATION: CT cervical spine wo con DATE: 01/12/2023 11:32 INDICATION: Neck pain after fall TECHNIQUE: Computed tomography (CT) of the cervical spine was performed without intravenous contrast. The dose-length product was 435 mGy-cm. Automated exposure control and iterative reconstruction tech [facility] were employed. COMPARISON: CT dated 03/25/2022 FINDINGS: Vertebral body heights are maintained. Craniovertebral junction is normal. Odontoid process is normal. No evidence for perched facet. No fracture or traumatic malalignment. There is carotid at herosclerosis. No paraspinal soft tissue abnormality. Lung apices are unremarkable. There is levoscol iosis of the cervical spine. There is mild degenerative change of the right uncinate and facet joints at C3-4, C4-5 and C5-6. IMPRESSION: 1. No acute abnormality of the cervical spine. Reviewed, dictated and finalized at location A.
--- NOTE | 2023-01-12 11:58 | ED.FALL ---
HPI - Fall General Chief Complaint: Fall <Rell Hall PA-C - Last Filed: 01/12/23 15:08> Stated Complaint: unwitnessed fall <Rell Hall PA-C - Last Filed: 01/12/23 15:08> Time Seen by Provider: 01/12/23 11:26 <Rell Hall PA-C - Last Filed: 01/12/23 15:08> Source: patient <Rell Hall PA-C - Last Filed: 01/12/23 15:08> Mode of arrival: ambulatory <Rell Hall PA-C - Last Filed: 01/12/23 15:08> Limitations: no limitations <Rell Hall PA-C - Last Filed: 01/12/23 15:08> History of Present Illness HPI Narrative: This is a 67-year-old female with PMH of CKD stage IV, HTN, DM who presents to the ED via EMS from [facility] with chief complaint of a fall that occurred this morning prior to arrival. Patient reports that she was getting up from her wheelchair to get to the bed and when she turned around she felt like her legs gave out and she fell backwards. States she fell to the ground and hit her head when she fell. She now complains of headache, right shoulder pain, left hip pain and left knee pain. Denies loss of consciousness. She is able to recount the entire event. Denies fevers, chills, urinary symptoms, abdominal pain, chest pain, shortness of breath, numbness, weakness, vision changes, speech changes. Per EMS patient was walking in the hallway and was not using her walker which she is supposed to use for ambulation. She is not on any blood thinners. <Rell Hall PA-C - Last Filed: 01/12/23 15:08> Related Data Home Medications: Home Medications Medication Instructions Recorded Confirmed atorvastatin 10 mg tablet 10 mg PO HS 10/04/21 12/01/22 docosahexaenoic acid (dha)-epa 120 1 cap PO DAILY 10/04/21 12/01/22 mg-180 mg capsule (Fish Oil) fluoxetine 20 mg capsule 20 mg PO DAILY 10/04/21 12/01/22 gemfibrozil 600 mg tablet 600 mg PO BID 10/04/21 12/01/22 metoprolol tartrate 25 mg tablet 25 mg PO BID 10/04/21 12/01/22 olanzapine 5 mg tablet 5 mg PO TID 10/04/21 12/01/22 pantoprazole 40 mg tablet,delayed 40 mg PO QAM 10/04/21 12/01/22 release (Protonix) sodium bicarbonate 650 mg tablet 650 mg PO TID 10/04/21 12/01/22 insulin aspart U-100 100 unit/mL 20 unit subcut TID 12/01/22 12/01/22 (3 mL) subcutaneous pen (Novolog FlexPen U-100 Insulin aspart) insulin detemir U-100 100 unit/mL 30 unit subcut BID 12/01/22 12/01/22 (3 mL) subcutaneous pen (Levemir FlexPen) sitagliptin phosphate 25 mg tablet 25 mg PO DAILY 12/01/22 12/01/22 (Januvia) <Rell Hall PA-C - Last Filed: 01/12/23 15:08> Allergies/Adverse Reactions: Allergies Allergy/AdvReac Type Severity Reaction Status Date / Time No Known Allergies Allergy Verified 11/24/22 10:47 <Rell Hall PA-C - Last Filed: 01/12/23 15:08> Review of Systems Review of Systems: CONSTITUTIONAL: Denies fever, chills, or sweats. EYES: Denies visual changes, redness, or discharge. ENT: Denies rhinorrhea, congestion, sore throat, or otalgia. CARDIOVASCULAR: Denies chest pain, palpitations, or edema. RESPIRATORY: Denies cough or dyspnea. GASTROINTESTINAL: Denies abdominal pain, nausea, vomiting, or diarrhea. GENITOURINARY: Denies dysuria or hematuria. SKIN: Denies rash or itching. MUSCULOSKELETAL: See HPI NEUROLOGIC: See HPI PSYCHIATRIC: Denies anxiety or depression. <NORBERTO Bain Last Filed: 01/12/23 15:08> [facility] Past Medical History Medical History: Medical History Anemia Calculus of gallbladder without cholecystitis without obstruction Chronic indwelling Alonzo catheter Chronic kidney disease, stage 3b Depression with anxiety Diabetes mellitus Gastro-esophageal reflux disease without esophagitis History of colon cancer Hyperlipidemia Ileostomy in place Parastomal hernia without obstruction or gangrene Repeated falls Vascular dementia with behavioral disturbance <Rell Hall PA-C - Last Filed:
== END 2023-01-12 14:47 ==
PROVIDERS: Emergency Provider Physician Assistant
DX: S83.412A Sprain of medial collateral ligament of left knee, initial encounter (principal); S09.90XA Unspecified injury of head, initial encounter; S49.91XA Unspecified injury of right shoulder and upper arm, initial encounter; S79.912A Unspecified injury of left hip, initial encounter; S89.92XA Unspecified injury of left lower leg, initial encounter; E11.22 Type 2 diabetes mellitus with diabetic chronic kidney disease; I12.9 Hypertensive chronic kidney disease with stage 1 through stage 4 chronic kidney disease, or unspecified chronic kidney disease; N18.4 Chronic kidney disease, stage 4 (severe); F01.518 Vascular dementia, unspecified severity, with other behavioral disturbance; F41.8 Other specified anxiety disorders; Z86.2 Personal history of diseases of the blood and blood-forming organs and certain disorders involving the immune mechanism; Z90.49 Acquired absence of other specified parts of digestive tract; Z66 Do not resuscitate; Z79.4 Long term (current) use of insulin; Z79.84 Long term (current) use of oral hypoglycemic drugs; W18.39XA Other fall on same level, initial encounter
CPT/HCPCS: 70450; 72125; 73030; 73502; 73560; 99284

== ENCOUNTER 2023-03-18 16:56 | Emergency (ER) | payer OTHER, SELFPAY ==
[2023-03-18] VITALS (40 sets, daily range): BP systolic 106–148; BP diastolic 47–64; PULSE 78–91; RESP 11–26; O2SAT 95–100
--- NOTE | ~2023-03-18 | CT_ITS ---
CT head without contrast Indication: Head injury IMPRESSION: 01/12/2023 Technique: Serial scans were obtained through the brain without the administration of contrast. Dose reduction technique was used on this scan by utilizing automated exposure control and iterative recon struction technique. The dose-length product (DLP) was 681.00 mGy-cm. Findings: There is no evidence of intracranial hemorrhage, mass lesion, or acute infarct. The ventri cles and subarachnoid spaces are dilated, consistent with mild atrophy. Low attenuation regions are seen within the periventricular white matter bilaterally, likely representing changes from chronic mi crovascular ischemic disease. There is no evidence of edema, mass effect or midline shift. The visu alized paranasal sinuses and mastoid air cells are clear. Impression: No intracranial hemorrhage, mass, or acute infarct. Atrophy and chronic white matter changes, as above. Reviewed, dictated and finalized at location . IMPRESSION: 01/12/2023 Technique: Serial scans were obtained through the brain without the administrat ion of contrast. Dose reduction technique was used on this scan by utilizing au tomated exposure control and iterative reconstruction technique. The dose-lengt h product (DLP) was 681.00 mGy-cm. Findings: There is no evidence of intracranial hemorrhage, mass lesion, or acut e infarct. The ventricles and subarachnoid spaces are dilated, consistent with mild atrophy. Low attenuation regions are seen within the periventricular whi te matter bilaterally, likely representing changes from chronic microvascular i schemic disease. There is no evidence of edema, mass effect or midline shift. The visualized paranasal sinuses and mastoid air cells are clear. Impression: No intracranial hemorrhage, mass, or acute infarct. Atrophy and chronic white matter changes, as above.
--- NOTE | ~2023-03-18 | CT_ITS ---
Noncontrast CT scan of the cervical spine Technique: Multiple contiguous axial [address] images of the cervical spine were obtained and rec onstructed in 2D sagittal and coronal planes on the acquisition scanner. Dose reduction technique was used on this scan by utilizing automated exposure control, adjustment of the mA and/or kV according to patient size. The dose-length product (DLP) was 546.96 mGy-cm. Clinical History: Pain Findings: No fractures or dislocations. Unremarkable visualized bony structures. The intervertebral disc spaces are preserved. No prevertebral soft tissue swelling. Impression: No fracture or subluxation of the cervical spine. Reviewed, dictated and finalized at location . Impression: No fracture or subluxation of the cervical spine.
--- NOTE | ~2023-03-18 | CT_ITS ---
Clinical Indication: Status post fall CT Scan of the Chest, Abdomen, and Pelvis with Contrast: Technique: Contiguous sections were acquired throughout the chest, abdomen, and pelvis after intraven ous administration of 100 cc of Omnipaque 350. Dose reduction technique was used on this scan by michael schulte automated exposure control and iterative reconstruction technique. The dose-length product (DL P) was 908.80 mGy-cm. COMPARISON: 10/04/2021 Findings: There is no evidence of any significant mediastinal, hilar or axillary lymphadenopathy. The mediastin al soft tissues appear normal. No pulmonary embolus seen. No aortic aneurysm or dissection. There is no evidence of pleural or pericardial effusion. The lungs are clear. No pulmonary nodules or infiltrates are noted. Probable mild fatty infiltration of liver noted. Gallstones are present. The spleen, pancreas, and ad renal glands are within normal limits. Probable bilateral areas of renal cortical scarring. There are atherosclerotic calcifications of the aorta. No lymphadenopathy. Patient is status post total colectomy with right lower quadrant diverting ileostomy. There is sugges tion of fat-containing parastomal herniation. There is a large fluid-filled structure in the pelvis, presumably urinary bladder which is probably d istended, with mild diffuse wall thickening. Patient appears to be status post hysterectomy. No ascit es. There is compression fracture of T9, new since 10/04/2021. There is stable chronic compression deformi ty of L2. Impression: Compression fracture T9, likely chronic, though new since 10/04/2021. Stable chronic compression defor mity of L2. Diffuse fatty infiltration of liver. Cholelithiasis. Large fluid-filled structure the pelvis probably represents a distended urinary bladder, with mild wa ll thickening. Correlate clinically for cystitis. Status post total colectomy with ileostomy present, unchanged. Reviewed, dictated and finalized at location . Impression: Compression fracture T9, likely chronic, though new since 10/04/2021. Stable chr onic compression deformity of L2. Diffuse fatty infiltration of liver. Cholelithiasis. Large fluid-filled structure the pelvis probably represents a distended urinary bladder, with mild wall thickening. Correlate clinically for cystitis. Status post total colectomy with ileostomy present, unchanged.
--- NOTE | ~2023-03-18 | XR_ITS ---
AP view of the pelvis and AP and lateral views of the left hip Clinical history: Pain Findings: No acute fracture or dislocation is seen. Questionable lucent lesion in the right ischial t uberosity region. Osseous alignment is anatomic. Bilateral hip and SI joint spaces are preserved. Sof t tissues are unremarkable. Impression: No acute fracture or dislocation. Possible lytic lesion at the right ischial tuberosity region. Consider additional workup as indicated . Reviewed, dictated and finalized at location M. Impression: No acute fracture or dislocation. Possible lytic lesion at the right ischial tuberosity region. Consider addition al workup as indicated.
--- NOTE | 2023-03-18 17:13 | ED.FALL ---
HPI - Fall General Chief Complaint: Fall <Valentina Merrill PA-C - Last Filed: 03/18/23 22:53> Stated Complaint: fall <Valentina Merrill PA-C - Last Filed: 03/18/23 22:53> Time Seen by Provider: 03/18/23 17:05 <Valentina Merrill PA-C - Last Filed: 03/18/23 22:53> History of Present Illness HPI Narrative: Patient is a 67-year-old female here for evaluation after a fall at her nursing facility. Patient states that she was ambulating in her usual state of health when she slipped on some water on the bathroom tile, falling and striking her left side against the tile. She does not believe she hit her head. Patient states that since the fall she has had pain in her left hip and side, severe headache, and pain in her stoma. She denies any preceding lightheadedness, weakness, chest pain or shortness of breath. She does not take blood thinners. <Valentina Merrill PA-C - Last Filed: 03/18/23 22:53> Related Data Home Medications: Home Medications Medication Instructions Recorded Confirmed atorvastatin 10 mg tablet 10 mg PO HS 10/04/21 12/01/22 docosahexaenoic acid (dha)-epa 120 1 cap PO DAILY 10/04/21 12/01/22 mg-180 mg capsule (Fish Oil) fluoxetine 20 mg capsule 20 mg PO DAILY 10/04/21 12/01/22 gemfibrozil 600 mg tablet 600 mg PO BID 10/04/21 12/01/22 metoprolol tartrate 25 mg tablet 25 mg PO BID 10/04/21 12/01/22 olanzapine 5 mg tablet 5 mg PO TID 10/04/21 12/01/22 pantoprazole 40 mg tablet,delayed 40 mg PO QAM 10/04/21 12/01/22 release (Protonix) sodium bicarbonate 650 mg tablet 650 mg PO TID 10/04/21 12/01/22 insulin aspart U-100 100 unit/mL 20 unit subcut TID 12/01/22 12/01/22 (3 mL) subcutaneous pen (Novolog FlexPen U-100 Insulin aspart) insulin detemir U-100 100 unit/mL 30 unit subcut BID 12/01/22 12/01/22 (3 mL) subcutaneous pen (Levemir FlexPen) sitagliptin phosphate 25 mg tablet 25 mg PO DAILY 12/01/22 12/01/22 (Januvia) <Valentina Merrill PA-C - Last Filed: 03/18/23 22:53> Allergies/Adverse Reactions: Allergies Allergy/AdvReac Type Severity Reaction Status Date / Time No Known Allergies Allergy Verified 03/18/23 17:17 <Valentina Merrill PA-C - Last Filed: 03/18/23 22:53> Review of Systems Review of Systems: Gen.: Denies fevers or chills Eyes: Denies eye pain or visual change ENT: Denies congestion Respiratory: Denies shortness of breath or cough CV: Denies chest pain or palpitations GI: Denies abdominal pain nausea, emesis or diarrhea denies burning, urgency, frequency or hematuria Musculoskeletal: Reports pain in her left side Neuro: Reports headache. Denies numbness, tingling, weakness or focal weakness Skin: Denies rash Except as documented, all other systems reviewed and negative <Valentina Merrill PA-C - Last Filed: 03/18/23 22:53> [facility] Past Medical History Medical History: Medical History Anemia Calculus of gallbladder without cholecystitis without obstruction Chronic indwelling Alonzo catheter Chronic kidney disease, stage 3b Depression with anxiety Diabetes mellitus Gastro-esophageal reflux disease without esophagitis History of colon cancer Hyperlipidemia Ileostomy in place Parastomal hernia without obstruction or gangrene Repeated falls Vascular dementia with behavioral disturbance <Valentina Merrill PA-C - Last Filed: 03/18/23 22:53> Surgical History Surgical History: Surgical History Hx of colectomy <Valentina Merrill PA-C - Last Filed: 03/18/23 22:53> Family History Family History: Family History Other Family history unknown <Valentina Merrill PA-C - Last Filed: 03/18/23 22:53> Social History Social History: Social History (Reviewed 11/24/22 @ 10:46 by Karime Munguia MA
--- NOTE | 2023-03-18 17:46 | PC.NURSE ---
pt. is off the floor and taken by radiology for imaging.
[2023-03-18] MEDS: HYDROcodone/acetaminophen (*CRX) 5-325 MG TABLET 1 TAB PO (17:53)
[2023-03-18 18:22] LABS: Basophils Percent Auto 0.5 % (0.2-1.2); Eosinophils Absolute Auto 0.2 K/mm3 (0-0.3); Eosinophils Percent Auto 3.5 % (0-4.4); Hematocrit 35.7 % (37.0-47.0); Hemoglobin 10.9 g/dL (12.0-15.0); Immature Granulocyte Absolute 0.02 K/mm3 (0.00-0.031); Immature Granulocyte Percent A 0.3 % (0-0.5); Lymphocytes Percent Auto 19.6 % (18.3-44.2); Mean Corpuscular HGB Conc 30.5 g/dl (32-36); Mean Corpuscular Hemoglobin 26.4 pg (26-34); Mean Corpuscular Volume 86.4 fl (80-100); Mean Platelet Volume 8.6 fl (7.4-10.4); Monocytes Absolute Auto 0.9 K/mm3 (0.1-0.6); Monocytes Percent Auto 14.2 % (2.6-8.5); Neutrophils Absolute Auto 4.1 K/mm3 (1.3-6.7); Neutrophils Percent Auto 61.9 % (45.5-73.1); Platelet Count Result 321 k/mm3 (150-375); Red Blood Count 4.13 M/mm3 (4.2-5.4); White Blood Count 6.6 K/mm3 (4.5-10.0)
[2023-03-18 18:34] LABS: Anion Gap 9 mmol/L (8-16); Blood Urea Nitrogen 39 mg/dL (7-17); Calcium 9.2 mg/dL (8.4-10.2); Carbon Dioxide 20 mmol/L (22-30); Chloride 109 mmol/L (98-107); Estimated Glomerular Filt Rate 50; Glucose 127 mg/dL (65-110); Potassium 4.9 mmol/L (3.4-5.0); Sodium 138 mmol/L (137-145)
--- NOTE | 2023-03-18 18:59 | PC.NURSE ---
pt. was brought in with a rash under the left breast and excoriated skin around the stoma located on the R. lower abdomen. the left breast was wash, dried, and barrier cream was applied. the colostomy site was cleaned, prepped, and a new bag was applied around the stoma. SANDHYA Montgomery assessed the site.
--- NOTE | 2023-03-18 19:17 | PC.NURSE ---
nursing care of patient handed over to ALAINA Franco. all questions answered.
[2023-03-18] MEDS: MORPHINE SULFATE (*CRX) 2 MG/ML INJ IV PUSH (19:20)
[2023-03-18 22:10] LABS: Appearance Urine Turbid (Clear); Bacteria Urine 4+ /hpf; Bilirubin Urine Negative (Negative); Blood Urine 3+ (Negative); Color Urine Yellow (Yellow); Glucose Urine UA Negative (Negative); Ketones Urine Negative (Negative); Leukocyte Esterase Ur 3+ LEU/UL (Negative); Mucus Urine Present /lpf; Nitrate Urine Negative (Negative); Protein Urine 1+ mg/dL (Negative); RBC Urine 21-50 /hpf (0-2); Squamous Epithelial Cell Urine Few /hpf (Few); Urobilinogen Urine 0.2 mg/dL (<2.0); WBC Clumps Urine Present /HPF; WBC Urine >100 /hpf; pH Urine 5.5 (5.0-9.0)
[2023-03-18 22:13] LABS: Add Urine Microscopic? YES
--- NOTE | 2023-03-18 22:43 | PC.NURSE ---
Call [facility] at [phone]. [facility] will be here in 30 mins.
== END 2023-03-18 23:43 ==
PROVIDERS: Emergency Provider Physician Assistant
DX: S30.811A Abrasion of abdominal wall, initial encounter (principal); N39.0 Urinary tract infection, site not specified; F01.518 Vascular dementia, unspecified severity, with other behavioral disturbance; E11.22 Type 2 diabetes mellitus with diabetic chronic kidney disease; N18.32 Chronic kidney disease, stage 3b; E78.5 Hyperlipidemia, unspecified; Z93.2 Ileostomy status; Z86.2 Personal history of diseases of the blood and blood-forming organs and certain disorders involving the immune mechanism; Z85.038 Personal history of other malignant neoplasm of large intestine; R29.6 Repeated falls; Z90.49 Acquired absence of other specified parts of digestive tract; Z66 Do not resuscitate; Z79.4 Long term (current) use of insulin; M89.9 Disorder of bone, unspecified; K80.20 Calculus of gallbladder without cholecystitis without obstruction; W01.0XXA Fall on same level from slipping, tripping and stumbling without subsequent striking against object, initial encounter
CPT/HCPCS: 36415; 70450; 71260; 72125; 73502; 74177; 80048; 81001; 85025; 87077; 87086; 87186; 96374; 99284; A9270; J2270; Q9967

== ENCOUNTER 2023-05-24 22:37 | Inpatient (IN) | payer OTHER, SELFPAY ==
--- NOTE | ~2023-05-24 | US_ITS ---
Thyroid ultrasound. Clinical History: Hyperthyroidism Findings: Real-time sonography of the thyroid gland was performed. The right lobe measures 3.9 x 1.9 x 2.1 cm. The left lobe measures 5.2 x 2.2 x 1.8 cm. The isthmus is 10 mm in AP diameter. Parenchyma is heterogeneous, without definite discrete nodule. Impression: No definite nodule seen. Consider correlation with nuclear medicine thyroid uptake scan, as indicated . Reviewed, dictated and finalized at location . Impression: No definite nodule seen. Consider correlation with nuclear medicine thyroid upt denis scan, as indicated.
--- NOTE | ~2023-05-24 | XR_ITS ---
Portable chest x-ray Comparison: 10/04/2021 Clinical History: Weakness Findings: Lungs are clear, without focal consolidation or pleural effusion. Cardiomediastinal silho uette is stable. Bones and soft tissues are unremarkable. Impression: Clear lungs. Reviewed, dictated and finalized at location . Impression: Clear lungs.
--- NOTE | ~2023-05-24 | CT_ITS ---
CT head without contrast Indication: Altered mental status COMPARISON: 03/18/2023 Technique: Serial scans were obtained through the brain without the administration of contrast. Dose reduction technique was used on this scan by utilizing automated exposure control and iterative recon struction technique. The dose-length product (DLP) was 681.00 mGy-cm. Findings: There is no evidence of intracranial hemorrhage, mass lesion, or acute infarct. The ventri cles and subarachnoid spaces are dilated, consistent with mild atrophy. Low attenuation regions are seen within the periventricular white matter bilaterally, likely representing changes from chronic mi crovascular ischemic disease. There is no evidence of edema, mass effect or midline shift. The visu alized paranasal sinuses and mastoid air cells are clear. Impression: No intracranial hemorrhage, mass, or acute infarct. Atrophy and chronic white matter changes, as above. Reviewed, dictated and finalized at [facility]. Impression: No intracranial hemorrhage, mass, or acute infarct. Atrophy and chronic white matter changes, as above.
--- NOTE | ~2023-05-24 | CT_ITS ---
Non-contrast CT scan of the Abdomen and Pelvis Clinical indication: Abdominal pain Technique: 2.5 mm axial scans were obtained through the abdomen and pelvis without intravenous or or al contrast. Dose reduction technique was used on this scan by utilizing automated exposure control a nd iterative reconstruction technique. The dose-length product (DLP) was 787.87 mGy-cm. COMPARISON: 03/18/2023 Findings: Images through the lung bases reveal bibasilar consolidation. The liver, spleen, pancreas, kidneys, and adrenals appear normal. Multiple gallstones are present. Th ere are atherosclerotic calcifications of the aorta. Patient is status post apparent prior colectomy with right lower quadrant presumed ileostomy present. No bowel obstruction evident. Images through the pelvis were performed. Urinary bladder is collapsed around a Alonzo catheter. There is infiltration of presacral soft tissues, which could reflect postoperative/post therapy change. No definite pelvic mass identified. Patient appears to be post hysterectomy. Stable compression fractur es of T9 and L2 are present. Impression: Bibasilar consolidation presumably represents atelectasis. Correlate clinically for pneumonia. Cholelithiasis. Postoperative changes related to apparent prior colectomy with ileostomy present. Stable compression fractures of T9 and L2. Reviewed, dictated and finalized at location M. Impression: Bibasilar consolidation presumably represents atelectasis. Correlate clinically for pneumonia. Cholelithiasis. Postoperative changes related to apparent prior colectomy with ileostomy presen t. Stable compression fractures of T9 and L2.
[2023-05-24 22:40] VITALS: BP 140/78; PULSE 147; RESP 44; TEMP 36.7; O2SAT 95
[2023-05-24 22:57] LABS: Glucose Point of Care > 500 mg/dl (65-105)
[2023-05-24 23:03] LABS: Basophils Percent Auto 0.2 % (0.2-1.2); Eosinophils Absolute Auto 0.1 K/mm3 (0-0.3); Eosinophils Percent Auto 0.5 % (0-4.4); Hematocrit 43.2 % (37.0-47.0); Hemoglobin 13.2 g/dL (12.0-15.0); Immature Granulocyte Absolute 0.12 K/mm3 (0.00-0.031); Immature Granulocyte Percent A 0.6 % (0-0.5); Lymphocytes Percent Auto 1.9 % (18.3-44.2); Mean Corpuscular HGB Conc 30.6 g/dl (32-36); Mean Corpuscular Hemoglobin 26.1 pg (26-34); Mean Corpuscular Volume 85.5 fl (80-100); Mean Platelet Volume 9.5 fl (7.4-10.4); Monocytes Absolute Auto 2.4 K/mm3 (0.1-0.6); Monocytes Percent Auto 11.2 % (2.6-8.5); Neutrophils Absolute Auto 18.2 K/mm3 (1.3-6.7); Neutrophils Percent Auto 85.6 % (45.5-73.1); Platelet Count Result 407 k/mm3 (150-375); Red Blood Count 5.05 M/mm3 (4.2-5.4); Red Cell Distribution Width 14.9 % (11.5-14.5); White Blood Count 21.3 K/mm3 (4.5-10.0)
[2023-05-24] MEDS: SODIUM CHLORIDE 0.9% IV 1,000 ML 999 ML IV CONT ×3 (23:13)
[2023-05-24 23:17] VITALS: PULSE 143; RESP 45; O2SAT 93
[2023-05-24 23:20] LABS: Lactic Acid Reflex 2.2 mmol/L (0.7-2.0)
[2023-05-24 23:27] LABS: Alveolar/Arterial O2 Gradient 55.5 mmHg; Base Excess ABG -10.8 mEq/l (+/-2.0); Fractional Inspired Oxygen 21 %; HCO3 ABG 13.5 mEq/l (22.0-26.0); Oxygen Content ABG 17.7 %vol (16.0-22.0); Oxygen Saturation ABG 90.6 % (95.0-100.0); Oxyhemoglobin 88.6 % THb (90.0-100.0); PCO2 ABG 26.7 mmHg (35.0-45.0); PO2 ABG 62.3 mmHg (80.0-100.0); PO2 FiO2 Ratio Arterial Blood 2.97 %; Site Drawn LEFT RADIAL; Total Hemoglobin 14.2 g/dL (12.0-18.0); pH ABG 7.321 (7.350-7.450)
[2023-05-24 23:28] LABS: Modified Allen's Test Pass
[2023-05-24 23:31] LABS: NT Pro B Type Natriuretic Pept 601 pg/mL (19.9-100); Troponin I 0.014 ng/mL (0.000-0.034)
[2023-05-24 23:35] LABS: Anisocytosis 1+ (NORMAL); Polychromasia 1+ (NORMAL); Schistocytes None Seen (NORMAL)
[2023-05-24 23:40] VITALS: PULSE 139; RESP 41
[2023-05-24 23:44] LABS: Alanine Aminotransferase 14 U/L (6-35); Albumin Level 4.1 g/dL (3.5-5.1); Alkaline Phosphatase 137 U/L (38-126); Anion Gap 21 mmol/L (8-16); Aspartate Amino Transferase 19 U/L (14-36); Bilirubin,Total 0.5 mg/dL (0.2-1.3); Blood Urea Nitrogen 112 mg/dL (7-17); Calcium 10.9 mg/dL (8.4-10.2); Carbon Dioxide 13 mmol/L (22-30); Chloride 102 mmol/L (98-107); Estimated CRCL calculation 22 ml/min; Estimated Glomerular Filt Rate 19; Glucose 612 mg/dL (65-110); Lipase 51 U/L (23-300); Magnesium 3.1 mg/dL (1.6-2.3); Phosphorus 5.9 mg/dL (2.5-4.5); Potassium 6.2 mmol/L (3.4-5.0); Sodium 136 mmol/L (137-145)
[2023-05-24 23:45] VITALS: PULSE 137; RESP 40
--- NOTE | 2023-05-24 23:46 | ED.GENADULT ---
HPI - General Adult General Chief complaint: Recheck/Abnormal Lab/Rx Stated complaint: ams, high glucose Time Seen by Provider: 05/24/23 22:58 History of Present Illness HPI narrative: Patient is a 68-year-old female who presents the emergency department with chief complaint of generalized malaise. Patient is a resident of a local [facility] and today they noticed that she had fallen a couple times and reported this evening that she was breathing fast had a fast heart rate and her blood sugars have been elevated. Patient does have history of insulin-dependent diabetes and blood sugars been greater than 500 Related Data Home Medications Medication Instructions Recorded Confirmed atorvastatin 10 mg tablet 10 mg PO HS 10/04/21 12/01/22 docosahexaenoic acid (dha)-epa 120 1 cap PO DAILY 10/04/21 12/01/22 mg-180 mg capsule (Fish Oil) fluoxetine 20 mg capsule 20 mg PO DAILY 10/04/21 12/01/22 gemfibrozil 600 mg tablet 600 mg PO BID 10/04/21 12/01/22 metoprolol tartrate 25 mg tablet 25 mg PO BID 10/04/21 12/01/22 olanzapine 5 mg tablet 5 mg PO TID 10/04/21 12/01/22 pantoprazole 40 mg tablet,delayed 40 mg PO QAM 10/04/21 12/01/22 release (Protonix) sodium bicarbonate 650 mg tablet 650 mg PO TID 10/04/21 12/01/22 insulin aspart U-100 100 unit/mL 20 unit subcut TID 12/01/22 12/01/22 (3 mL) subcutaneous pen (Novolog FlexPen U-100 Insulin aspart) insulin detemir U-100 100 unit/mL 30 unit subcut BID 12/01/22 12/01/22 (3 mL) subcutaneous pen (Levemir FlexPen) sitagliptin phosphate 25 mg tablet 25 mg PO DAILY 12/01/22 12/01/22 (Januvia) Allergies Allergy/AdvReac Type Severity Reaction Status Date / Time No Known Allergies Allergy Verified 03/18/23 17:17 Review of Systems Review of Systems: A 10 system review of systems was completed on the patient and is negative except for what is stated in the HPI. Nursing and ancillary documentation was reviewed. [facility] Past Medical History Medical History Anemia Calculus of gallbladder without cholecystitis without obstruction Chronic indwelling Alonzo catheter Chronic kidney disease, stage 3b Depression with anxiety Diabetes mellitus Gastro-esophageal reflux disease without esophagitis History of colon cancer Hyperlipidemia Ileostomy in place Parastomal hernia without obstruction or gangrene Repeated falls Vascular dementia with behavioral disturbance Surgical History Surgical History Hx of colectomy Family History Family History Other Family history unknown Social History Social History Social History: Listed as DNR. She resides at [facility]. Never smoked. . No family listed on face sheet from the [place]. Smoking status: Never smoker Alcohol intake: never Substance use: never Spiritual care concerns: No Exam Narrative: GENERAL: Ill-appearing, well-nourished, and in no acute distress. HEAD: Normocephalic, atraumatic. EYES: PERRLA and EOMI. ENT: Nares clear, no rhinorrhea or epistaxis. Mucous membranes dry. NECK: Supple. CHEST: Clear to auscultation. No respiratory distress. HEART: Regular rate and rhythm. No murmur heard. Normal peripheral pulses. ABDOMEN: Soft, nontender, nondistended, normal active bowel sounds. EXTREMITIES: Normal range of motion. No edema. SKIN: Warm, dry, no rash. NEURO: No focal deficits. Alert and oriented x3. PSYCH: Normal mood and affect. Course Vital Signs Vital signs: Vital Signs Temperature 36.7 C 05/24/23 22:40 Pulse Rate 147 H 05/24/23 22:40 Respiratory Rate 44 H 05/24/23 22:40 Blood Pressure 140/78 05/24/23 22:40 Pulse Oximetry 95 05/24/23 22:40 Oxygen Delivery Room Air 05/24/23 22:40 Temperature
[2023-05-24 23:49] LABS: Glucose Point of Care 485 mg/dl (65-105)
[2023-05-24 23:54] LABS: Appearance Urine Turbid (Clear); Bacteria Urine 4+ /hpf; Bilirubin Urine Negative (Negative); Blood Urine 2+ (Negative); Color Urine Yellow (Yellow); Glucose Urine UA 2+ mg/dL (Negative); Ketones Urine 1+ mg/dL (Negative); Leukocyte Esterase Ur 3+ LEU/UL (Negative); Nitrate Urine Negative (Negative); Protein Urine 2+ mg/dL (Negative); Squamous Epithelial Cell Urine None seen /hpf (Few); Triple Phosphate Crystal Urine Present /hpf; Urobilinogen Urine 0.2 mg/dL (<2.0); WBC Clumps Urine Present /HPF; WBC Urine >100 /hpf; pH Urine >=9.0 (5.0-9.0)
[2023-05-24 23:56] LABS: Add Urine Microscopic? YES
[2023-05-25] VITALS (23 sets, daily range): BP systolic 110–146; BP diastolic 45–90; PULSE 93–143; RESP 21–42; TEMP 37.3–38.6; O2SAT 95–99; BMI 27.7
--- NOTE | 2023-05-25 | ECHO_ITS ---
Patient Info Name: Danii Mendez Age: 68 years : 1955 Gender: Female Ht: 59 in Wt: 138 lbs BSA: 1.64 m2 HR: 98 bpm BP: 124 / 99 mmHg Heart Rhythm: Sinus Rhythm Technical Quality: Fair Exam Date: 05/25/2023 12:09 PM Exam Location: [facility] Pulmonary Exam Room: ICU8 Patient Status: Inpatient Admit Date: 05/25/2023 Staff Ordering Physician: Ramy Masterson MD Post Acute Care Registered Nurse: Angela Gresham RDCS Attending Provider: Nj Sampson MD Exam Type: CA echo doppler color flow Study Info Indications I47.2 - Ventricular tachycardia Complete two-dimensional, color flow and Doppler transthoracic echocardiogram is performed. Summary 1. Complete two-dimensional, color flow and Doppler transthoracic echocardiogram is performed. 2. Normal left ventricular size with hyperdynamic systolic contractility. 3. Normal diastolic function. 4. Mildly sclerotic aortic valve with sclerosis of the right coronary cusp. 5. Small amount of mitral annular calcium. Left Ventricle Left ventricular chamber dimension is normal. Left ventricular systolic function is hyperdynamic, estimated at >70%. The left ventricular diastolic function is normal. Right Ventricle Right ventricular chamber dimension is normal. Left Atria Left atrial chamber dimension is normal. Right Atria Right atrial chamber dimension is normal. Aortic Valve The aortic valve is trileaflet. There is mild aortic valve sclerosis. Pulmonic Valve The pulmonic valve is normal. Mitral Valve The mitral valve has normal leaflets. Tricuspid Valve The tricuspid valve leaflets are normal. Pericardium/Pleural The pericardium appears normal. Aorta The aortic root size at the sinus of Valsalva is normal. Left Ventricular Outflow Tract Name Value Normal LVOT 2D LVOT Diameter 2.0 cm LVOT Doppler LVOT Peak Gradient 8 mmHg LVOT Mean Gradient 5 mmHg LVOT VTI 25 cm LVOT VTI/AV VTI Ratio 1.0 LVOT Stroke Volume 78 ml LVOT CO 20.6 l/min LVOT CI 13.1 l/min/m2 Pulmonic Valve Name Value Normal PV Doppler PV Peak Gradient 8 mmHg Mitral Valve Name Value Normal MV Doppler MV Decel [place] 403 cm/s2 MV PHT 65 ms MV Area (PHT) 3.4 cm2 4.0-5.0 MV Diastolic Function MV E Peak Velocity 90 cm/s MV A Peak Velocity 76 cm/s
[2023-05-25] MEDS: SODIUM POLYSTYRENE SULFONONATE 15 GM/60 ML BTL 30 GM PO (00:13)
[2023-05-25] MEDS: SODIUM BICARBONATE 8.4% 50 MEQ/50 ML SYRINGE IV PUSH (00:14)
[2023-05-25] MEDS: CALCIUM GLUCONATE 1,000 MG/10 ML VIAL 1000 MG IV PUSH (00:15)
[2023-05-25] MEDS: INSULIN HUMAN REGULAR (*BKC) 100 UNITS/ML 10 UNITS IV PUSH (00:17)
[2023-05-25] MEDS: INSULIN HUMAN REGULAR (*BKC) 100 UNITS in SODIUM CHLORIDE 0.9% IV 99 ML IV CONT (00:18)
[2023-05-25] MEDS: DEXTROSE 50% 25 GM/50 ML SYRINGE IV PUSH (00:38)
[2023-05-25 00:46] LABS: Troponin I 0.013 ng/mL (0.000-0.034)
--- NOTE | 2023-05-25 00:49 | PC.NURSE ---
pharmacy advised to start insulin at 8 units/hr.
[2023-05-25 00:58] LABS: Influenza A QL RT-PCR Negative (Negative); Influenza B QL RT-PCR Negative (Negative); SARS-CoV-2 RNA PCR Negative (Negative)
[2023-05-25 00:59] LABS: Hemoglobin A1C 9.4 % (<5.7)
[2023-05-25 01:02] LABS: Anion Gap 19 mmol/L (8-16); Blood Urea Nitrogen 104 mg/dL (7-17); Calcium 9.2 mg/dL (8.4-10.2); Carbon Dioxide 9 mmol/L (22-30); Chloride 110 mmol/L (98-107); Estimated CRCL calculation 26 ml/min; Estimated Glomerular Filt Rate 24; Glucose 513 mg/dL (65-110); Potassium 5.6 mmol/L (3.4-5.0); Sodium 138 mmol/L (137-145)
[2023-05-25 01:12] LABS: Glucose Point of Care > 500 mg/dl (65-105)
[2023-05-25] MEDS: KCL 20 MEQ/D5/0.45% SOD CHL 1,000 ML 150 ML IV CONT ×2 (01:34→06:10)
[2023-05-25] MEDS: SODIUM CHLORIDE 0.9% IV 1,000 ML 150 ML IV CONT (01:47)
[2023-05-25 02:05] LABS: Reflex Lactic Acid Yes or No Add Lactic
--- NOTE | 2023-05-25 02:05 | ADMGEN ---
This patient, Danii Mendez, was admitted to Intensive Care Unit-8. Patient/family oriented to hospital policies and general routines including ID bracelet, bed and alarms, visiting hours, pain management, procedures, bathroom and other care routines, personal items, smoking policy, room service/diet, and visiting hours. Information on how to activate the Rapid Response Team has been discussed. Patient/Family are encouraged to report perceived risks to care and to ask questions if they do not understand what they are told or what they should do.
--- NOTE | 2023-05-25 02:05 | PM.IMHP ---
H&P: HPI History of Present Illness Date/Time: 05/25/23 02:05 Chief Complaint: Patient was transferred to the ER for evaluation from long term with complaints off weakness, tiredness fatigue and malaise Narrative: She is pleasantly confused lady with chronic medical issues who is a long term resident. She had fallen a couple times in [facility], was breathing fast with fast heart rate and elevated blood sugar levels. She was confused, tired and not acting herself. She has diabetes for which she takes insulin and blood sugars were running greater than 500. Patient was sent to the to ER for evaluation, workup was done which showed finding consistent with DKA secondary to a raging UTI. She was started on IV antibiotics and DKA treatment protocol. She is being admitted to ICU for critical care management and close monitoring. Review of Systems Review of Systems: All systems reviewed & are unremarkable except as noted in HPI and below PMFSH Past Medical History Medical History Anemia Calculus of gallbladder without cholecystitis without obstruction Chronic indwelling Alonzo catheter Chronic kidney disease, stage 3b Depression with anxiety Diabetes mellitus Gastro-esophageal reflux disease without esophagitis History of colon cancer Hyperlipidemia Ileostomy in place Parastomal hernia without obstruction or gangrene Repeated falls Vascular dementia with behavioral disturbance Surgical History Surgical History Hx of colectomy Family History Family History Other Family history unknown Social History Social History Social History: Listed as DNR. She resides at [facility]. Never smoked. . No family listed on face sheet from the [place]. Smoking status: Never smoker Alcohol intake: never Substance use: never Spiritual care concerns: No Meds Home Medications and Allergies Home Medications Medication Instructions Recorded Confirmed Type atorvastatin 10 mg tablet 10 mg PO HS 10/04/21 12/01/22 History docosahexaenoic acid (dha)-epa 120 1 cap PO DAILY 10/04/21 12/01/22 History mg-180 mg capsule (Fish Oil) fluoxetine 20 mg capsule 20 mg PO DAILY 10/04/21 12/01/22 History gemfibrozil 600 mg tablet 600 mg PO BID 10/04/21 12/01/22 History metoprolol tartrate 25 mg tablet 25 mg PO BID 10/04/21 12/01/22 History olanzapine 5 mg tablet 5 mg PO TID 10/04/21 12/01/22 History pantoprazole 40 mg tablet,delayed 40 mg PO QAM 10/04/21 12/01/22 History release (Protonix) sodium bicarbonate 650 mg tablet 650 mg PO TID 10/04/21 12/01/22 History alprazolam 0.5 mg tablet (Xanax) 0.5 mg PO BID #10 tabs 10/06/21 12/01/22 Rx cefdinir 300 mg capsule 300 mg PO Q12H #8 caps 10/06/21 12/01/22 Rx insulin aspart U-100 100 unit/mL 20 unit subcut TID 12/01/22 12/01/22 History (3 mL) subcutaneous pen (Novolog FlexPen U-100 Insulin aspart) insulin detemir U-100 100 unit/mL 30 unit subcut BID 12/01/22 12/01/22 History (3 mL) subcutaneous pen (Levemir FlexPen) sitagliptin phosphate 25 mg tablet 25 mg PO DAILY 12/01/22 12/01/22 History (Januvia) cephalexin 500 mg capsule 500 mg PO Q12H #10 caps 03/18/23 Rx cephalexin 500 mg capsule 500 mg PO Q12H #14 caps 03/18/23 Rx Allergies Allergy/AdvReac Type Severity Reaction Status Date / Time No Known Allergies Allergy Verified 03/18/23 17:17 Vital Signs Vital Signs - 24 hr 05/24/23 22:40 05/24/23 23:17 05/24/23 23:40 Temperature 36.7 C Pulse Rate 147 H 143 H 139 H Respiratory Rate 44 H 45 H 41 H Blood Pressure 140/78 Pulse Oximetry 95 93 Oxygen Delivery Room Air 05/24/23 23:45 05/25/23 00:00 05/25/23 01:10 Temperature Pulse Rate 137 H 138 H 142 H Respiratory Rate 40 H 40 H 40 H Blood P
--- NOTE | 2023-05-25 02:13 | ECG_ITS ---
Measurements Intervals [place] Rate: 141 P: [place]: 0 QRS: -12 QRSD: 112 T: 55 QT: 373 QTc: 572 Interpretive Statements SINUS OR ECTOPIC ATRIAL TACHYCARDIA INCOMPLETE RIGHT BUNDLE BRANCH BLOCK BASELINE ARTIFACT- I, II, AVR, V6 ABNORMAL ECG COMPARED TO ECG 10/04/2021 11:36:08 HEART RATE HAS INCREASED Electronically Signed On 05-25-2023 8:29:16 CDT by Hussein Sweet D.O.
[2023-05-25 03:09] LABS: Glucose Point of Care 414 mg/dl (65-105)
[2023-05-25 03:09] LABS: Glucose Point of Care 393 mg/dl (65-105)
[2023-05-25] MEDS: LACTATED RINGERS 500 ML 999 ML IV CONT (03:55)
[2023-05-25] MEDS: dilTIAZem HCl INJ 25 MG/5 ML VIAL 20 MG IV PUSH (03:56)
[2023-05-25] MEDS: dilTIAZem 100 MG/100 ML 100 MG/100 ML BAG IV CONT (04:39)
[2023-05-25 04:44] LABS: Basophils Percent Auto 0.1 % (0.2-1.2); Hematocrit 34.4 % (37.0-47.0); Hemoglobin 10.6 g/dL (12.0-15.0); Immature Granulocyte Absolute 0.08 K/mm3 (0.00-0.031); Immature Granulocyte Percent A 0.5 % (0-0.5); Lymphocytes Absolute Auto 0.55 K/mm3 (0.9-3.2); Lymphocytes Percent Auto 3.4 % (18.3-44.2); Mean Corpuscular HGB Conc 30.8 g/dl (32-36); Mean Corpuscular Hemoglobin 26.4 pg (26-34); Mean Corpuscular Volume 85.6 fl (80-100); Mean Platelet Volume 9.2 fl (7.4-10.4); Monocytes Absolute Auto 1.7 K/mm3 (0.1-0.6); Monocytes Percent Auto 10.4 % (2.6-8.5); Neutrophils Absolute Auto 13.9 K/mm3 (1.3-6.7); Neutrophils Percent Auto 85.6 % (45.5-73.1); Platelet Count Result 307 k/mm3 (150-375); Red Blood Count 4.02 M/mm3 (4.2-5.4); Red Cell Distribution Width 14.4 % (11.5-14.5); White Blood Count 16.2 K/mm3 (4.5-10.0)
[2023-05-25 05:01] LABS: Glucose Point of Care 265 mg/dl (65-105)
[2023-05-25 05:01] LABS: Glucose Point of Care 323 mg/dl (65-105)
[2023-05-25 05:12] LABS: Lactic Acid 2.9 mmol/L (0.7-2.0)
[2023-05-25 05:15] LABS: Alanine Aminotransferase 12 U/L (6-35); Albumin Level 3.2 g/dL (3.5-5.1); Alkaline Phosphatase 95 U/L (38-126); Anion Gap 13 mmol/L (8-16); Aspartate Amino Transferase 19 U/L (14-36); Bilirubin,Total 0.3 mg/dL (0.2-1.3); Blood Urea Nitrogen 90 mg/dL (7-17); Calcium 9.4 mg/dL (8.4-10.2); Carbon Dioxide 17 mmol/L (22-30); Chloride 117 mmol/L (98-107); Estimated Glomerular Filt Rate 35; Glucose 303 mg/dL (65-110); Magnesium 2.5 mg/dL (1.6-2.3); Phosphorus 3.3 mg/dL (2.5-4.5); Potassium 4.5 mmol/L (3.4-5.0); Sodium 147 mmol/L (137-145)
[2023-05-25 05:16] LABS: Anion Gap 15 mmol/L (8-16); Blood Urea Nitrogen 89 mg/dL (7-17); Calcium 9.4 mg/dL (8.4-10.2); Carbon Dioxide 18 mmol/L (22-30); Chloride 116 mmol/L (98-107); Estimated Glomerular Filt Rate 35; Glucose 303 mg/dL (65-110); Sodium 149 mmol/L (137-145)
[2023-05-25 05:17] LABS: Beta-Hydroxybutyrate/Acetoacetate 1.01 mmol/L (0.02-0.27)
[2023-05-25 06:17] LABS: Glucose Point of Care 193 mg/dl (65-105)
[2023-05-25 07:27] LABS: Glucose Point of Care 195 mg/dl (65-105)
[2023-05-25 08:19] LABS: Glucose Point of Care 230 mg/dl (65-105)
[2023-05-25 08:24] LABS: Anion Gap 11 mmol/L (8-16); Blood Urea Nitrogen 78 mg/dL (7-17); Calcium 9.1 mg/dL (8.4-10.2); Carbon Dioxide 18 mmol/L (22-30); Chloride 119 mmol/L (98-107); Estimated Glomerular Filt Rate 45; Glucose 230 mg/dL (65-110); Potassium 3.7 mmol/L (3.4-5.0); Sodium 148 mmol/L (137-145)
[2023-05-25] MEDS: ACETAMINOPHEN 325 MG TABLET 650 MG PO ×2 (08:39→14:55)
[2023-05-25] MEDS: PANTOPRAZOLE SODIUM IV 40 MG VIAL IV PUSH (08:39)
[2023-05-25] MEDS: ASPIRIN 325 MG ENTERIC TABLET PO (08:39)
--- NOTE | 2023-05-25 08:39 | PC.NURSE ---
Cardizem gtt paused per MD order
[2023-05-25] MEDS: INSULIN GLARGINE (*BKC) 100 UNITS/ML 25 UNITS SUB-Q (08:47)
[2023-05-25] MEDS: KCL 20 MEQ/0.45% NS 1,000 ML 100 ML IV CONT (09:10)
[2023-05-25] MEDS: MEROPENEM 1 GM/NS 100 ML 1 GM/100 ML BAG IVPB ×2 (09:11→21:33)
[2023-05-25] MEDS: ENOXAPARIN 40 MG/0.4 ML SYRINGE SUB-Q (09:13)
--- NOTE | 2023-05-25 09:35 | WPDCNINT ---
Assessment and Plan Assessment and plan (1) Sepsis: Code(s): A41.9 - Sepsis, unspecified organism Status: Acute Assessment and Plan: Patient presented with sepsis secondary to urinary tract infection. Does have history of UTIs with ESBL Patient was given IV fluid bolus and started on IV fluid infusion and Rocephin in the ER Urine and blood cultures have been sent Check CT scan to rule out stones or obstruction in light of acute kidney injury Change Rocephin to meropenem to cover for ESBL Continue IV fluids Patient has not required vasopressors until now but may need vasopressors. I spoke to patient regarding potentially needing vasopressors and a central venous access. When I explained patient the procedure of central line she started crying and stating that she does not want the procedure. I also tried to call patient's at the number listed in the chart with no response. Will revisit this issue pressor rise is otherwise abuse peripheral IV access if patient does not consent for procedure (2) Acute on chronic kidney failure: Qualifiers: Acute renal failure type: unspecified Chronic kidney disease stage: unspecified stage Qualified Code(s): N17.9 - Acute kidney failure, unspecified; N18.9 - Chronic kidney disease, unspecified Code(s): N17.9 - Acute kidney failure, unspecified; N18.9 - Chronic kidney disease, unspecified Status: Acute Assessment and Plan: Patient has history of chronic kidney disease and presented with creatinine of 2.5. Is likely multifactorial secondary to sepsis DKA Patient has been receiving IV fluids and creatinine is improving currently 1.2 Continue Alonzo for accurate intake and output monitoring Monitor and treat electrolyte abnormalities Check CT scan to rule out any obstruction Continue half-normal saline (3) DKA (diabetic ketoacidosis): Code(s): E11.10 - Type 2 diabetes mellitus with ketoacidosis without coma Status: Acute Assessment and Plan: Patient presented with elevated blood glucose, anion gap and positive beta hydroxybutyrate consistent with DKA Patient was given iVF bolus and infusion Insulin infusion was started and Q1H glucose monitoring was ordered Serial labs were performed Her anion gap has now closed. I will transition her to subcutaneous insulin Resume diet after CT scan (4) Acute hyperkalemia: Code(s): E87.5 - Hyperkalemia Status: Acute Assessment and Plan: Likely secondary to TONNY and DKA Resolved with treatment (5) UTI (urinary tract infection): Code(s): N39.0 - Urinary tract infection, site not specified Status: Acute Assessment and Plan: See above (6) Tachycardia: Code(s): R00.0 - Tachycardia, unspecified Status: Acute Assessment and Plan: Patient presented with tachycardia which appears to be sinus tachycardia likely from pain sepsis and fever Initially was suspected the patient was in AFib with RVR or atrial flutter and was started on Cardizem infusion It appears sinus tach this morning and I have discontinued Cardizem infusion Will add low-dose beta-emiliano Evaluate for hyperthyroidism-see below (7) Gastro-esophageal reflux disease without esophagitis: Code(s): K21.9 - Gastro-esophageal reflux disease without esophagitis Status: Acute Assessment and Plan: PPI (8) Thyroid function study abnormality: Code(s): R94.6 - Abnormal results of thyroid function studies Status: Acute Assessment and Plan: Patient was found to be having a thyroid nodule as an outpatient in 12/14. At time ultrasound thyroid and thyroid uptake scan was ordered which I do not see done. She had a TSH done in10/15 which was low but she had normal free T4 and free T3 Start low-dose beta-emiliano Check TSH T3 and T4 (9) Vascular dementia with behavioral disturbance: Code(s): F01.51 - Vascular dementia, unspecified severity, with behavioral disturbance
[2023-05-25] MEDS: METOPROLOL TARTRATE 12.5 MG TABLET PO ×3 (10:24→21:33)
[2023-05-25] MEDS: SODIUM CHLORIDE 0.45% 1,000 ML 100 ML IV CONT ×2 (10:24→20:32)
[2023-05-25 10:53] LABS: Thyroid Stimulating Hormone Reflex < 0.015 uIU/mL (0.465-4.68)
[2023-05-25 11:21] LABS: Free T4 Free Thyroxine 6.57 ng/mL (0.78-2.19)
--- NOTE | 2023-05-25 11:38 | ECG_ITS ---
Measurements Intervals [place] Rate: 98 P: 60 [place]: 135 QRS: -18 QRSD: 110 T: 19 QT: 341 QTc: 437 Interpretive Statements SINUS RHYTHM ATRIAL PREMATURE COMPLEXES INCOMPLETE RIGHT BUNDLE BRANCH BLOCK LEFT VENTRICULAR HYPERTROPHY BORDERLINE T WAVE ABNORMALITY- ANT/INF LEADS BASELINE ARTIFACT- I, II, III, AVR, AVL, AVF BORDERLINE ECG COMPARED TO ECG 05/25/2023 02:17:01 SINUS RHYTHM NOW PRESENT LEFT VENTRICULAR HYPERTROPHY NOW PRESENT Electronically Signed On 05-25-2023 12:38:03 CDT by Hussein Sweet D.O.
--- NOTE | 2023-05-25 11:40 | PCDIET ---
Nutrition consult for DKA. [place] received [place] had [place]. UTI noted and confused. HbA1c 9.4%. Patient has advanced to [facility] diet. Agree with diet orders.
[2023-05-25 12:29] LABS: Glucose Point of Care 234 mg/dl (65-105)
[2023-05-25] MEDS: INSULIN ASPART (*BKC) 100 UNITS/ML SUB-Q ×3 (12:29→20:40)
[2023-05-25 16:08] LABS: Glucose Point of Care 261 mg/dl (65-105)
[2023-05-25 20:44] LABS: Glucose Point of Care 202 mg/dl (65-105)
[2023-05-26] VITALS (22 sets, daily range): BP systolic 125–153; BP diastolic 47–86; PULSE 81–126; RESP 13–37; TEMP 37.1–37.8; O2SAT 96–100; BMI 27.8
[2023-05-26 00:03] LABS: Glucose Point of Care 198 mg/dl (65-105)
[2023-05-26] MEDS: INSULIN ASPART (*BKC) 100 UNITS/ML SUB-Q ×5 (04:13→20:30)
[2023-05-26 04:14] LABS: Glucose Point of Care 249 mg/dl (65-105)
[2023-05-26 04:32] LABS: Basophils Percent Auto 0.2 % (0.2-1.2); Hemoglobin 10.5 g/dL (12.0-15.0); Immature Granulocyte Absolute 0.06 K/mm3 (0.00-0.031); Immature Granulocyte Percent A 0.5 % (0-0.5); Lymphocytes Absolute Auto 0.75 K/mm3 (0.9-3.2); Lymphocytes Percent Auto 6.2 % (18.3-44.2); Mean Corpuscular HGB Conc 29.2 g/dl (32-36); Mean Corpuscular Hemoglobin 25.8 pg (26-34); Mean Corpuscular Volume 88.5 fl (80-100); Mean Platelet Volume 9.2 fl (7.4-10.4); Monocytes Absolute Auto 1.1 K/mm3 (0.1-0.6); Monocytes Percent Auto 8.6 % (2.6-8.5); Neutrophils Absolute Auto 10.3 K/mm3 (1.3-6.7); Neutrophils Percent Auto 84.5 % (45.5-73.1); Platelet Count Result 302 k/mm3 (150-375); Red Blood Count 4.07 M/mm3 (4.2-5.4); Red Cell Distribution Width 14.8 % (11.5-14.5); White Blood Count 12.2 K/mm3 (4.5-10.0)
[2023-05-26 04:42] LABS: Alanine Aminotransferase 11 U/L (6-35); Albumin Level 3.1 g/dL (3.5-5.1); Alkaline Phosphatase 97 U/L (38-126); Anion Gap 10 mmol/L (8-16); Aspartate Amino Transferase 17 U/L (14-36); Bilirubin,Total 0.4 mg/dL (0.2-1.3); Blood Urea Nitrogen 51 mg/dL (7-17); Calcium 8.9 mg/dL (8.4-10.2); Carbon Dioxide 19 mmol/L (22-30); Chloride 119 mmol/L (98-107); Estimated Glomerular Filt Rate > 60; Glucose 286 mg/dL (65-110); Potassium 4.1 mmol/L (3.4-5.0); Sodium 148 mmol/L (137-145)
[2023-05-26] MEDS: SODIUM CHLORIDE 0.45% 1,000 ML 100 ML IV CONT (06:39)
[2023-05-26] MEDS: METOPROLOL TARTRATE 12.5 MG TABLET PO (07:10)
--- NOTE | 2023-05-26 08:15 | WPDINTPN ---
Progress Note: A&P Assessment and Plan (1) Sepsis: Code(s): A41.9 - Sepsis, unspecified organism Status: Acute Assessment and Plan: Patient presented with sepsis secondary to urinary tract infection. She does have history of UTIs with ESBL Patient was given IV fluid bolus and started on IV fluid infusion and Rocephin in the ER Urine E cultures growing Gram-negative rods Blood cultures have been negative till now CT scan t negative for stones or obstruction and showed Bibasilar consolidation presumably represents atelectasis. Correlate clinically for pneumonia. Cholelithiasis. Postoperative changes related to apparent prior colectomy with ileostomy present. Stable compression fractures of T9 and L2. Changed rocephin to meropenem to cover for ESBL which will be continued Discontinue further IV fluids Patient has not required vasopressors until now (2) Acute on chronic kidney failure: Qualifiers: Acute renal failure type: unspecified Chronic kidney disease stage: unspecified stage Qualified Code(s): N17.9 - Acute kidney failure, unspecified; N18.9 - Chronic kidney disease, unspecified Code(s): N17.9 - Acute kidney failure, unspecified; N18.9 - Chronic kidney disease, unspecified Status: Acute Assessment and Plan: Patient has history of chronic kidney disease and presented with creatinine of 2.5. Is likely multifactorial secondary to sepsis DKA Patient has been receiving IV fluids and creatinine has now improved and normalized Continue Alonzo for accurate intake and output monitoring Monitor and treat electrolyte abnormalities CT scan negative for any obstruction or hydronephrosis DC further IV fluids (3) DKA (diabetic ketoacidosis): Code(s): E11.10 - Type 2 diabetes mellitus with ketoacidosis without coma Status: Acute Assessment and Plan: Patient presented with elevated blood glucose, anion gap and positive beta hydroxybutyrate consistent with DKA Patient was given iVF bolus and infusion Insulin infusion was started and Q1H glucose monitoring was ordered Serial labs were performed Her anion gap has now closed. And patient has been transition to subcutaneous insulin Resume diet after swallow evaluation (4) Acute hyperkalemia: Code(s): E87.5 - Hyperkalemia Status: Acute Assessment and Plan: Likely secondary to TONNY and DKA Resolved with treatment (5) UTI (urinary tract infection): Code(s): N39.0 - Urinary tract infection, site not specified Status: Acute Assessment and Plan: See above (6) Tachycardia: Code(s): R00.0 - Tachycardia, unspecified Status: Acute Assessment and Plan: Patient presented with tachycardia which appears to be sinus tachycardia likely from pain sepsis and fever Initially was suspected the patient was in AFib with RVR or atrial flutter and was started on Cardizem infusion It appears sinus tach this morning and I have discontinued Cardizem infusion Will add low-dose beta-emiliano Evaluate for hyperthyroidism-see below (7) Gastro-esophageal reflux disease without esophagitis: Code(s): K21.9 - Gastro-esophageal reflux disease without esophagitis Status: Acute Assessment and Plan: PPI (8) Thyroid function study abnormality: Code(s): R94.6 - Abnormal results of thyroid function studies Status: Acute Assessment and Plan: Patient was found to be having a thyroid nodule as an outpatient in 12/14. At time ultrasound thyroid and thyroid uptake scan was ordered which I do not see done. She had a TSH done in10/15 which was low but she had normal free T4 and free T3 05/25 patient's TSH < 0.015 with elevated free T4 at 6.57. Free T3 is pending Continue p.o. beta-emiliano but increase dose 25 mg q.8 hours Check thyroid ultrasound (9) Vascular dementia with behavioral disturbance: Code(s): F01.51 - Vascular dementia, unspecified severity, with behavioral disturb
[2023-05-26] MEDS: ENOXAPARIN 40 MG/0.4 ML SYRINGE SUB-Q (09:00)
[2023-05-26] MEDS: PANTOPRAZOLE SODIUM IV 40 MG VIAL IV PUSH (09:00)
[2023-05-26] MEDS: INSULIN GLARGINE (*BKC) 100 UNITS/ML 25 UNITS SUB-Q (09:05)
[2023-05-26] MEDS: MEROPENEM 1 GM/NS 100 ML 1 GM/100 ML BAG IVPB ×2 (09:07→20:29)
[2023-05-26 09:21] LABS: Glucose Point of Care 265 mg/dl (65-105)
[2023-05-26] MEDS: DEXTROSE 5% IN WATER 500 ML 50 ML IV CONT (10:59)
--- NOTE | 2023-05-26 11:24 | PM.IMPN ---
Progress Note: A&P Assessment and Plan (1) Sepsis: Code(s): A41.9 - Sepsis, unspecified organism Status: Acute Assessment and Plan: Urine E cultures growing Gram-negative rods Blood cultures have been negative till now CT scan t negative for stones or obstruction and showed Bibasilar consolidation presumably represents atelectasis. Correlate clinically for pneumonia. Cholelithiasis. Postoperative changes related to apparent prior colectomy with ileostomy present. Stable compression fractures of T9 and L2. Changed rocephin to meropenem to cover for ESBL which will be continued (2) Acute on chronic kidney failure: Qualifiers: Acute renal failure type: unspecified Chronic kidney disease stage: unspecified stage Qualified Code(s): N17.9 - Acute kidney failure, unspecified; N18.9 - Chronic kidney disease, unspecified Code(s): N17.9 - Acute kidney failure, unspecified; N18.9 - Chronic kidney disease, unspecified Status: Acute Assessment and Plan: Patient has history of chronic kidney disease and presented with creatinine of 2.5. Is likely multifactorial secondary to sepsis DKA Patient has been receiving IV fluids and creatinine has now improved and normalized Continue Alonzo for accurate intake and output monitoring Monitor and treat electrolyte abnormalities CT scan negative for any obstruction or hydronephrosis DC further IV fluids (3) DKA (diabetic ketoacidosis): Code(s): E11.10 - Type 2 diabetes mellitus with ketoacidosis without coma Status: Acute Assessment and Plan: Patient presented with elevated blood glucose, anion gap and positive beta hydroxybutyrate consistent with DKA Patient was given iVF bolus and infusion Insulin infusion was started and Q1H glucose monitoring was ordered Serial labs were performed Her anion gap has now closed. And patient has been transition to subcutaneous insulin Resume diet after swallow evaluation (4) Tachycardia: Code(s): R00.0 - Tachycardia, unspecified Status: Acute Assessment and Plan: Patient presented with tachycardia which appears to be sinus tachycardia likely from pain sepsis and fever Initially was suspected the patient was in AFib with RVR or atrial flutter and was started on Cardizem infusion which has now been discontinued since patient was found to be in sinus tachycardia Started on low-dose beta-emiliano Evaluate for hyperthyroidism-see below (5) Gastro-esophageal reflux disease without esophagitis: Code(s): K21.9 - Gastro-esophageal reflux disease without esophagitis Status: Acute Assessment and Plan: PPI (6) Thyroid function study abnormality: Code(s): R94.6 - Abnormal results of thyroid function studies Status: Acute Assessment and Plan: She had a TSH done in10/15 which was low but she had normal free T4 and free T3 05/25 patient's TSH < 0.015 with elevated free T4 at 6.57. Free T3 is pending Continue p.o. beta-emiliano but increase dose 25 mg q.8 hours Check thyroid ultrasound Will start on low-dose methimazole (7) Vascular dementia with behavioral disturbance: Code(s): F01.51 - Vascular dementia, unspecified severity, with behavioral disturbance Status: Acute Assessment and Plan: History of vascular dementia at baseline Will start Seroquel at night delirium (8) Diabetes mellitus: Code(s): E11.9 - Type 2 diabetes mellitus without complications Status: Acute Assessment and Plan: Continue sliding scale insulin Add Lantus Subjective Date/time seen: 05/26/23 11:24 Interval history: No change from yesterday. Still complains of abdominal pain Review of Systems Review of Systems: ROS unobtainable: Yes unobtainable due to medical condition and unobtainable due to mental status Exam Narrative: General: Pt is alert awake and in mild distress due to pain Lungs/Chest: Trachea central Clear BS B/L, No crackles
[2023-05-26 12:12] LABS: Glucose Point of Care 242 mg/dl (65-105)
--- NOTE | 2023-05-26 13:22 | PCSTNOTE ---
Bedside swallowing evaluation completed. Patient seen bedside, positioned upright with head of bed elevated. Cursory oral peripheral examination results within functional limits. Trials of thin liquid by spoon, cup, and straw were given and patient showed no signs of penetration or aspiration. Spoonful of pudding (pureed consistency) was within functional limits. Small bite of stacia cracker was difficult for patient to chew and form bolus. Delayed cough was noted after stacia cracker trial. No other signs of aspiration were observed during evaluation. Recommendations: pureed diet with thin liquids, swallowing precaution recommendations placed in chart. A modified barium swallow study is recommended to identify whether silent aspiration may be an issue for this patient, but this is not suspected. Thank you for the referral of this patient.
[2023-05-26] MEDS: ASPIRIN 325 MG ENTERIC TABLET PO (14:40)
[2023-05-26] MEDS: METOPROLOL TARTRATE 25 MG TABLET PO ×2 (14:40→21:00)
[2023-05-26] MEDS: methiMAzole 5 MG TAB PO (14:40)
[2023-05-26] MEDS: CALCIUM CARBONATE (TUMS) 500 MG (200 MG ELEMENTAL) PO (14:43)
[2023-05-26] MEDS: INSULIN GLARGINE (*BKC) 100 UNITS/ML 15 UNITS SUB-Q (17:13)
[2023-05-26 17:16] LABS: Glucose Point of Care 244 mg/dl (65-105)
[2023-05-26] MEDS: TOLNAFTATE 1% POWDER 45 GM BTL 1 APPLIC TOPICAL (20:30)
[2023-05-26 20:41] LABS: Glucose Point of Care 206 mg/dl (65-105)
[2023-05-26 23:57] LABS: Glucose Point of Care 138 mg/dl (65-105)
[2023-05-27] VITALS (15 sets, daily range): BP systolic 100–154; BP diastolic 39–81; PULSE 85–115; RESP 16–38; TEMP 36.4–37.7; O2SAT 97–100
[2023-05-27 04:15] LABS: Glucose Point of Care 127 mg/dl (65-105)
[2023-05-27 04:20] LABS: Basophils Percent Auto 0.1 % (0.2-1.2); Eosinophils Absolute Auto 0.1 K/mm3 (0-0.3); Eosinophils Percent Auto 1.3 % (0-4.4); Hematocrit 33.1 % (37.0-47.0); Hemoglobin 9.9 g/dL (12.0-15.0); Immature Granulocyte Absolute 0.03 K/mm3 (0.00-0.031); Immature Granulocyte Percent A 0.4 % (0-0.5); Lymphocytes Percent Auto 11.4 % (18.3-44.2); Mean Corpuscular HGB Conc 29.9 g/dl (32-36); Mean Corpuscular Hemoglobin 25.8 pg (26-34); Mean Corpuscular Volume 86.4 fl (80-100); Mean Platelet Volume 8.9 fl (7.4-10.4); Monocytes Absolute Auto 0.8 K/mm3 (0.1-0.6); Monocytes Percent Auto 9.9 % (2.6-8.5); Neutrophils Absolute Auto 6.1 K/mm3 (1.3-6.7); Neutrophils Percent Auto 76.9 % (45.5-73.1); Platelet Count Result 241 k/mm3 (150-375); Red Blood Count 3.83 M/mm3 (4.2-5.4); Red Cell Distribution Width 14.5 % (11.5-14.5); White Blood Count 7.9 K/mm3 (4.5-10.0)
[2023-05-27 04:31] LABS: Alanine Aminotransferase 10 U/L (6-35); Alkaline Phosphatase 90 U/L (38-126); Anion Gap 6 mmol/L (8-16); Aspartate Amino Transferase 19 U/L (14-36); Bilirubin,Total 0.4 mg/dL (0.2-1.3); Blood Urea Nitrogen 28 mg/dL (7-17); Calcium 8.3 mg/dL (8.4-10.2); Carbon Dioxide 25 mmol/L (22-30); Chloride 109 mmol/L (98-107); Estimated Glomerular Filt Rate > 60; Glucose 130 mg/dL (65-110); Magnesium 1.7 mg/dL (1.6-2.3); Potassium 3.1 mmol/L (3.4-5.0); Sodium 140 mmol/L (137-145)
[2023-05-27] MEDS: METOPROLOL TARTRATE 25 MG TABLET PO (05:27)
--- NOTE | 2023-05-27 08:04 | WPDINTPN ---
Progress Note: A&P Assessment and Plan (1) Sepsis: Code(s): A41.9 - Sepsis, unspecified organism Status: Acute Assessment and Plan: Patient presented with sepsis secondary to urinary tract infection. She does have history of UTIs with ESBL Patient was given IV fluid bolus and started on IV fluid infusion and Rocephin in the ER Urine cultures growing Proteus Blood cultures have been negative till now CT scan negative for stones or obstruction and showed Bibasilar consolidation presumably represents atelectasis. Correlate clinically for pneumonia. Cholelithiasis. Postoperative changes related to apparent prior colectomy with ileostomy present. Stable compression fractures of T9 and L2. Patient was earlier switch to meropenem from Rocephin to cover for ESBL. Urine culture is growing Proteus. 05/27 antibiotics changed to daily IV Rocephin wDiscontinue further IV fluids Patient has not required vasopressors until now (2) Acute on chronic kidney failure: Qualifiers: Acute renal failure type: unspecified Chronic kidney disease stage: unspecified stage Qualified Code(s): N17.9 - Acute kidney failure, unspecified; N18.9 - Chronic kidney disease, unspecified Code(s): N17.9 - Acute kidney failure, unspecified; N18.9 - Chronic kidney disease, unspecified Status: Acute Assessment and Plan: Patient has history of chronic kidney disease and presented with creatinine of 2.5. Is likely multifactorial secondary to sepsis DKA Patient has been receiving IV fluids and creatinine has now improved and normalized Continue Alonzo for accurate intake and output monitoring Monitor and treat electrolyte abnormalities CT scan negative for any obstruction or hydronephrosis DC further IV fluids (3) DKA (diabetic ketoacidosis): Code(s): E11.10 - Type 2 diabetes mellitus with ketoacidosis without coma Status: Acute Assessment and Plan: Patient presented with elevated blood glucose, anion gap and positive beta hydroxybutyrate consistent with DKA Patient was given iVF bolus and infusion Insulin infusion was started and Q1H glucose monitoring was ordered Serial labs were performed Her anion gap has now closed. And patient has been transition to subcutaneous insulin Resume diet after swallow evaluation (4) Acute hyperkalemia: Code(s): E87.5 - Hyperkalemia Status: Acute Assessment and Plan: Likely secondary to TONNY and DKA Resolved with treatment (5) UTI (urinary tract infection): Code(s): N39.0 - Urinary tract infection, site not specified Status: Acute Assessment and Plan: See above (6) Tachycardia: Code(s): R00.0 - Tachycardia, unspecified Status: Acute Assessment and Plan: Improved with beta-emiliano. Increase dose to 37.5 mg q.8 hours Evaluate for hyperthyroidism-see below (7) Gastro-esophageal reflux disease without esophagitis: Code(s): K21.9 - Gastro-esophageal reflux disease without esophagitis Status: Acute Assessment and Plan: PPI (8) Thyroid function study abnormality: Code(s): R94.6 - Abnormal results of thyroid function studies Status: Acute Assessment and Plan: Patient was found to be having a thyroid nodule as an outpatient in 12/14. At time ultrasound thyroid and thyroid uptake scan was ordered which I do not see done. She had a TSH done in10/15 which was low but she had normal free T4 and free T3 05/25 patient's TSH < 0.015 with elevated free T4 at 6.57. Free T3 is pending Continue p.o. beta-emiliano but increase dose 37.5 mg q.8 hours 05/26 Thyroid ultrasound showed No definite nodule seen. Consider correlation with nuclear medicine thyroid uptake scan, as indicated. 05/26 low-dose methimazole was added Will defer further evaluation to internal medicine physician (9) Vascular dementia with behavioral disturbance: Code(s): F01.51 - Vascular dementia, unspecified severity, with behavio
[2023-05-27] MEDS: ASPIRIN 325 MG ENTERIC TABLET PO (09:13)
[2023-05-27] MEDS: cefTRIAXone 2 GM/NS 100 ML 2 GM/100 ML BAG IVPB (09:13)
[2023-05-27] MEDS: ENOXAPARIN 40 MG/0.4 ML SYRINGE SUB-Q (09:13)
[2023-05-27] MEDS: methiMAzole 5 MG TAB PO (09:13)
[2023-05-27] MEDS: PANTOPRAZOLE SODIUM IV 40 MG VIAL IV PUSH (09:14)
[2023-05-27] MEDS: TOLNAFTATE 1% POWDER 45 GM BTL 1 APPLIC TOPICAL ×2 (09:18→21:25)
[2023-05-27] MEDS: POTASSIUM CHLORIDE 20 MEQ ER TABLET 40 MEQ PO (09:18)
[2023-05-27] MEDS: INSULIN GLARGINE (*BKC) 100 UNITS/ML 35 UNITS SUB-Q (09:40)
[2023-05-27 09:42] LABS: Glucose Point of Care 173 mg/dl (65-105)
--- NOTE | 2023-05-27 10:27 | PM.IMPN ---
Progress Note: A&P Assessment and Plan (1) Sepsis: Code(s): A41.9 - Sepsis, unspecified organism Status: Acute Assessment and Plan: Urine E cultures growing Gram-negative rods Blood cultures have been negative till now On IV Rocephin (2) Acute on chronic kidney failure: Qualifiers: Acute renal failure type: unspecified Chronic kidney disease stage: unspecified stage Qualified Code(s): N17.9 - Acute kidney failure, unspecified; N18.9 - Chronic kidney disease, unspecified Code(s): N17.9 - Acute kidney failure, unspecified; N18.9 - Chronic kidney disease, unspecified Status: Acute Assessment and Plan: Patient has been receiving IV fluids and creatinine has now improved and normalized Continue [place] for accurate intake and output monitoring Monitor and treat electrolyte abnormalities CT scan negative for any obstruction or hydronephrosis DC further IV fluids (3) DKA (diabetic ketoacidosis): Code(s): E11.10 - Type 2 diabetes mellitus with ketoacidosis without coma Status: Acute Assessment and Plan: Her anion gap has now closed. And patient has been transition to subcutaneous insulin Resume diet (4) Tachycardia: Code(s): R00.0 - Tachycardia, unspecified Status: Acute Assessment and Plan: Patient presented with tachycardia which appears to be sinus tachycardia likely from pain sepsis and fever Initially was suspected the patient was in AFib with RVR or atrial flutter and was started on Cardizem infusion which has now been discontinued since patient was found to be in sinus tachycardia Started on low-dose beta-emiliano Evaluate for hyperthyroidism-see below (5) Gastro-esophageal reflux disease without esophagitis: Code(s): K21.9 - Gastro-esophageal reflux disease without esophagitis Status: Acute Assessment and Plan: PPI (6) Thyroid function study abnormality: Code(s): R94.6 - Abnormal results of thyroid function studies Status: Acute Assessment and Plan: She had a TSH done in10/15 which was low but she had normal free T4 and free T3 05/25 patient's TSH < 0.015 with elevated free T4 at 6.57. Free T3 is pending Continue p.o. beta-emiliano but increase dose 25 mg q.8 hours Check thyroid ultrasound Started on low-dose methimazole (7) Vascular dementia with behavioral disturbance: Code(s): F01.51 - Vascular dementia, unspecified severity, with behavioral disturbance Status: Acute Assessment and Plan: History of vascular dementia at baseline Will start Seroquel at night delirium (8) Diabetes mellitus: Code(s): E11.9 - Type 2 diabetes mellitus without complications Status: Acute Assessment and Plan: Continue sliding scale insulin Add Lantus Subjective Date/time seen: 05/27/23 10:27 Interval history: No new events over night Review of Systems Review of Systems: All systems reviewed & are unremarkable except as noted in HPI and below (Subjective) Exam Narrative: General: Pt is alert awake and in no distress Lungs/Chest: Trachea central Clear BS B/L, No crackles or wheezing. Cardiac: Tachycardic regular rhythm. Normal S1 S2. No murmurs Circulation: Pedal pulses are intact and symmetrical. Abdomen: Normal bowel sounds.. Soft. Tenderness to palpation in hypogastric area, no guarding or rigidity, ileostomy in right lower quadrant with brownish stool output. Extremities: No clubbing, cyanosis or edema. Warm : Alonzo in place Neurologic: Follows commands. Moves all 4 extremities PERRL AO x 0. She knows she is in the hospital but does not know what hospital she is in. She was unable to tell me the name of the president or the year. Skin: No Rash Objective Data Vital Signs Vital Signs: Vital Signs - 24 hr 05/26/23 12:00 05/26/23 14:40 05/26/23 12:00 Temperature Pulse Rate 114 H Respiratory Rate Blood Pressure 129/71 Pulse Oximetry O
[2023-05-27] MEDS: oxyCODONE/ACETAMINOPHEN (*CRX) 5-325 MG TABLET 1 TABLET PO (10:51)
[2023-05-27 12:25] LABS: Glucose Point of Care 224 mg/dl (65-105)
[2023-05-27] MEDS: INSULIN ASPART (*BKC) 100 UNITS/ML SUB-Q ×3 (12:34→21:21)
[2023-05-27 15:17] LABS: Glucose Point of Care 222 mg/dl (65-105)
[2023-05-27 18:45] LABS: Glucose Point of Care 279 mg/dl (65-105)
[2023-05-27 21:31] LABS: Glucose Point of Care 250 mg/dl (65-105)
[2023-05-27] MEDS: METOPROLOL TARTRATE 12.5 MG TABLET 37.5 MG PO (21:34)
[2023-05-28] VITALS (9 sets, daily range): BP systolic 137–147; BP diastolic 54–72; PULSE 80–105; RESP 21–28; TEMP 37.7–37.8; O2SAT 98–99
[2023-05-28 00:33] LABS: Glucose Point of Care 197 mg/dl (65-105)
[2023-05-28 04:18] LABS: Basophils Percent Auto 0.1 % (0.2-1.2); Eosinophils Absolute Auto 0.1 K/mm3 (0-0.3); Eosinophils Percent Auto 0.9 % (0-4.4); Hematocrit 34.7 % (37.0-47.0); Hemoglobin 10.4 g/dL (12.0-15.0); Immature Granulocyte Absolute 0.03 K/mm3 (0.00-0.031); Immature Granulocyte Percent A 0.4 % (0-0.5); Lymphocytes Absolute Auto 0.86 K/mm3 (0.9-3.2); Lymphocytes Percent Auto 12.5 % (18.3-44.2); Mean Corpuscular Hemoglobin 25.6 pg (26-34); Mean Corpuscular Volume 85.5 fl (80-100); Mean Platelet Volume 8.9 fl (7.4-10.4); Monocytes Absolute Auto 0.7 K/mm3 (0.1-0.6); Monocytes Percent Auto 10.3 % (2.6-8.5); Neutrophils Absolute Auto 5.2 K/mm3 (1.3-6.7); Neutrophils Percent Auto 75.8 % (45.5-73.1); Platelet Count Result 245 k/mm3 (150-375); Red Blood Count 4.06 M/mm3 (4.2-5.4); Red Cell Distribution Width 14.1 % (11.5-14.5); White Blood Count 6.9 K/mm3 (4.5-10.0)
[2023-05-28 04:29] LABS: Alanine Aminotransferase 12 U/L (6-35); Alkaline Phosphatase 94 U/L (38-126); Anion Gap 6 mmol/L (8-16); Aspartate Amino Transferase 24 U/L (14-36); Bilirubin,Total 0.4 mg/dL (0.2-1.3); Blood Urea Nitrogen 28 mg/dL (7-17); Calcium 8.5 mg/dL (8.4-10.2); Carbon Dioxide 26 mmol/L (22-30); Chloride 107 mmol/L (98-107); Estimated Glomerular Filt Rate > 60; Glucose 193 mg/dL (65-110); Magnesium 1.7 mg/dL (1.6-2.3); Sodium 139 mmol/L (137-145)
[2023-05-28] MEDS: METOPROLOL TARTRATE 12.5 MG TABLET 37.5 MG PO (05:05)
[2023-05-28 07:21] LABS: Glucose Point of Care 200 mg/dl (65-105)
[2023-05-28] MEDS: ASPIRIN 325 MG ENTERIC TABLET PO (07:57)
[2023-05-28] MEDS: methiMAzole 5 MG TAB PO (07:57)
[2023-05-28] MEDS: PANTOPRAZOLE SODIUM IV 40 MG VIAL IV PUSH (07:57)
[2023-05-28] MEDS: INSULIN GLARGINE (*BKC) 100 UNITS/ML 35 UNITS SUB-Q (07:57)
[2023-05-28] MEDS: ENOXAPARIN 40 MG/0.4 ML SYRINGE SUB-Q (07:58)
[2023-05-28] MEDS: TOLNAFTATE 1% POWDER 45 GM BTL 1 APPLIC TOPICAL (07:58)
[2023-05-28] MEDS: cefTRIAXone 2 GM/NS 100 ML 2 GM/100 ML BAG IVPB (07:58)
--- NOTE | 2023-05-28 10:52 | PM.DS ---
DS: Admitting Diagnosis Discharge Date 05/28/2023 Admitting Diagnosis Sepsis DKA UTI DS: Discharge Diagnosis Discharge Diagnosis (1) Thyroid function study abnormality: Code(s): R94.6 - Abnormal results of thyroid function studies Status: Acute (2) Sepsis: Code(s): A41.9 - Sepsis, unspecified organism Status: Acute (3) DKA (diabetic ketoacidosis): Code(s): E11.10 - Type 2 diabetes mellitus with ketoacidosis without coma Status: Acute (4) UTI (urinary tract infection): Code(s): N39.0 - Urinary tract infection, site not specified Status: Acute (5) Acute on chronic kidney failure: Qualifiers: Acute renal failure type: unspecified Chronic kidney disease stage: unspecified stage Qualified Code(s): N17.9 - Acute kidney failure, unspecified; N18.9 - Chronic kidney disease, unspecified Code(s): N17.9 - Acute kidney failure, unspecified; N18.9 - Chronic kidney disease, unspecified Status: Acute DS: Summary Hospital Course Hospital Course: Patient presented with sepsis secondary to urinary tract infection.? She does have history of UTIs with ESBL. Patient was given IV fluid bolus and started on IV fluid infusion and Rocephin in the ER. Urine? cultures growing Proteus. Blood cultures have been negative till now. CT scan negative for stones or obstruction and showed: Bibasilar consolidation presumably represents atelectasis. Correlate clinically for pneumonia.Cholelithiasis.Postoperative changes related to apparent prior colectomy with ileostomy present.Stable compression fractures of T9 and L2. Patient was earlier switch to meropenem from Rocephin to cover for ESBL.? Urine culture is growing Proteus. / antibiotics changed to daily IV Rocephin. Patient has not required vasopressors until now. Patient has history of chronic kidney disease and presented with creatinine of 2.5. likely multifactorial secondary to sepsis DKA. Patient has been receiving IV fluids and creatinine has now improved and normalized. CT scan negative for any obstruction or hydronephrosis. DC further IV fluids Patient presented with elevated blood glucose, anion gap and positive beta hydroxybutyrate consistent with DKA. Patient was given iVF bolus and infusion. Insulin infusion was started and Q1H glucose monitoring was ordered. Serial labs were performed Her anion gap has now closed.? And patient has been transition to subcutaneous insulin. Resume diet. She also had tachycardia which improved with? beta-emiliano.? Increase dose to 50 mg p.o. b.i.d. Patient was found to be having a thyroid nodule as an outpatient in 12/14.? She had a TSH done in10/15 which was low but she had normal free T4 and free T3. 05/25 patient's TSH < 0.015 with elevated free T4 at 6.57.? 05/26 Thyroid ultrasound showed?No definite nodule seen. Consider correlation with nuclear medicine thyroid uptake scan, as indicated. 05/26 low-dose methimazole was added Patient will need nuclear medicine thyroid uptake scan as an outpatient. Patient is clinically stable and is being discharged back to [facility] Time Spent with Patient Time attestation: Total time spent providing and/or coordinating discharge services: DS: Data Data Completed and Pending Labs on day of discharge: Labs from last 24 hours 05/28/23 05/28/23 05/28/23 07:18 04:07 00:19 WBC 6.9 RBC 4.06 L Hgb 10.4 L Hct 34.7 L MCV 85.5 MCH 25.6 L MCHC 30.0 L RDW 14.1 Plt Count 245 MPV 8.9 Immature Gran % (Auto) 0.4 Neut % (Auto) 75.8 H Lymph % (Auto) 12.5 L [place] % (Auto) 10.3 H Eos % (Auto) 0.9 Baso % (Auto) 0.1 L Lymph # (Auto) 0.86 L [place] # (Auto) 0.7 H Eos # (Auto) 0.1 Baso # (Auto) 0.0 Abs Immat Gran (auto) 0.03 Absolute Neuts (auto) 5.2 Absolute Nucleated RBC 0.0 Nucleated RBC % 0.0 Sodium 139 Potassium 4.0 Chloride 107 Carbon Dioxide 26 Anion Gap 6 L BUN 28 H Creatini
[2023-05-28 11:56] LABS: Glucose Point of Care 252 mg/dl (65-105)
[2023-05-28] MEDS: METOPROLOL TARTRATE 50 MG TAB PO (11:58)
[2023-05-28] MEDS: INSULIN ASPART (*BKC) 100 UNITS/ML SUB-Q (11:59)
[2023-05-28 12:57] LABS: SARS-CoV-2 RNA PCR Negative (Negative)
== END 2023-05-28 15:06 | DRG 871 ==
LOC: ANHED 05-25 00:24 → ANHICU 05-25 01:12
PROVIDERS: Internal Medicine; Admitting Provider Family Medicine; Emergency Provider Emergency Medicine; Visit Provider Hospitalist
DX: A41.9 Sepsis, unspecified organism (principal); E11.10 Type 2 diabetes mellitus with ketoacidosis without coma; N39.0 Urinary tract infection, site not specified; N17.9 Acute kidney failure, unspecified; N18.4 Chronic kidney disease, stage 4 (severe); F01.518 Vascular dementia, unspecified severity, with other behavioral disturbance; E11.22 Type 2 diabetes mellitus with diabetic chronic kidney disease; B96.4 Proteus (mirabilis) (morganii) as the cause of diseases classified elsewhere; I12.9 Hypertensive chronic kidney disease with stage 1 through stage 4 chronic kidney disease, or unspecified chronic kidney disease; Z20.822 Contact with and (suspected) exposure to COVID-19; R94.6 Abnormal results of thyroid function studies; D64.9 Anemia, unspecified; F41.8 Other specified anxiety disorders; K21.9 Gastro-esophageal reflux disease without esophagitis; E78.5 Hyperlipidemia, unspecified; E87.5 Hyperkalemia; R29.6 Repeated falls; Z66 Do not resuscitate; R00.0 Tachycardia, unspecified; Z85.038 Personal history of other malignant neoplasm of large intestine; Z93.2 Ileostomy status
CPT/HCPCS: 36415; 36600; 70450; 71045; 74176; 76536; 80048; 80053; 81001; 82010; 82805; 82948; 83036; 83605; 83690; 83735; 83880; 84100; 84439; 84443; 84480; 84484; 85025; 87040; 87076; 87077; 87086; 87186; 87635; 87636; 92610; 93005; 93306; 96374; 96375; 97161; 97165; 99285; A9270; C9113; J0612; J0696; J1650; J1815; J2185; J3480; J7030; J7060; J7120

== ENCOUNTER 2023-10-10 18:33 | Inpatient (IN) | payer OTHER, SELFPAY ==
--- NOTE | ~2023-10-10 | CT_ITS ---
EXAMINATION: CT abdomen pelvis wo/w con DATE: 10/10/2023 20:43 INDICATION: Rectal pain. TECHNIQUE: Computed tomography (CT) of the abdomen and pelvis was performed without and with 100 mL O mnipaque 350 intravenous contrast. Automated exposure control and iterative reconstruction technique were employed. The dose-length product was 726 mGy-cm. COMPARISON: CT abdomen and pelvis 05/25/2023 FINDINGS: The visualized portions of the lung bases demonstrate mild atelectasis. No pleural effusion . The heart size is normal. There are coronary artery calcifications. No pericardial effusion. Calcif ications in the liver and spleen are consistent with old granulomatous disease. There are gallstones in the gallbladder, which is normal in size. The pancreas and adrenal glands are normal. There is a p arenchymal calcification in right kidney. There is mild left hydronephrosis and hydroureter. There is urothelial enhancement in the ureters. There is a small focus of gas in the bladder lumen. Bladder w all thickening is noted, consistent with cystitis. There are changes of total colectomy. There is an ileostomy on the right. There are no dilated loops of bowel. There are no pathologically enlarged lym ph nodes. There is no free intraperitoneal fluid. There is a chronic burst fracture of L2. There are is a chronic compression fracture T9. There is mild chronic anterior wedging of multiple vertebral gadiel dies. IMPRESSION: 1. Cystitis and bilateral pyelitis. Mild left hydronephrosis and hydroureter. 2. Total colectomy and end ileostomy. Reviewed, dictated and finalized at location E. EDURAL NURSE
[2023-10-10 18:33] VITALS: BP 110/51; PULSE 85; RESP 16; TEMP 36.4; O2SAT 98
[2023-10-10 18:48] LABS: Basophils Percent Auto 0.4 % (0.2-1.2); Eosinophils Absolute Auto 0.1 K/mm3 (0-0.3); Eosinophils Percent Auto 1.1 % (0-4.4); Hematocrit 36.7 % (37.0-47.0); Hemoglobin 10.9 g/dL (12.0-15.0); Immature Granulocyte Absolute 0.02 K/mm3 (0.00-0.031); Immature Granulocyte Percent A 0.2 % (0-0.5); Lymphocytes Absolute Auto 0.81 K/mm3 (0.9-3.2); Lymphocytes Percent Auto 9.9 % (18.3-44.2); Mean Corpuscular HGB Conc 29.7 g/dl (32-36); Mean Corpuscular Hemoglobin 24.8 pg (26-34); Mean Corpuscular Volume 83.4 fl (80-100); Mean Platelet Volume 8.5 fl (7.4-10.4); Monocytes Percent Auto 12.6 % (2.6-8.5); Neutrophils Absolute Auto 6.2 K/mm3 (1.3-6.7); Neutrophils Percent Auto 75.8 % (45.5-73.1); Platelet Count Result 374 k/mm3 (150-375); Red Cell Distribution Width 14.5 % (11.5-14.5); White Blood Count 8.2 K/mm3 (4.5-10.0)
[2023-10-10 19:05] LABS: Prothrombin Time 14.1 Seconds (11.1-14.7)
[2023-10-10 19:08] LABS: Platelet Estimate Adequate (Adequate); Schistocytes None Seen (NORMAL)
[2023-10-10 19:09] LABS: Hypochromasia 1+ (NORMAL)
[2023-10-10 19:12] LABS: Alanine Aminotransferase 17 U/L (6-35); Albumin Level 3.6 g/dL (3.5-5.1); Alkaline Phosphatase 126 U/L (38-126); Anion Gap 8 mmol/L (8-16); Aspartate Amino Transferase 19 U/L (14-36); Bilirubin,Total 0.3 mg/dL (0.2-1.3); Blood Urea Nitrogen 34 mg/dL (7-17); Calcium 9.3 mg/dL (8.4-10.2); Carbon Dioxide 18 mmol/L (22-30); Chloride 106 mmol/L (98-107); Estimated Glomerular Filt Rate 50; Glucose 267 mg/dL (65-110); Potassium 4.7 mmol/L (3.4-5.0); Sodium 132 mmol/L (137-145)
[2023-10-10 19:29] VITALS: BP 108/55; PULSE 82; RESP 20; TEMP 36.8; O2SAT 98
--- NOTE | 2023-10-10 20:05 | ED.GENADULT ---
HPI - General Adult General Chief complaint: GI Bleed Stated complaint: rectal bleeding Time Seen by Provider: 10/10/23 19:07 Source: patient Limitations: no limitations History of Present Illness HPI narrative: Patient is a 68-year-old female presents to the emergency department complaining of right leg blood coming from her rectum over the past 24 hours. Patient is to history is past many years ago and is to history of colon cancer for which she had surgery many years ago and has a stoma on her abdomen that has been draining normal brown colored stool. Patient admits to some discomfort in her buttock region with the same duration. Patient denies chest pain, difficulty breathing, lightheadedness, recent injuries, recent illness, vomiting, nausea, use of blood thinners, use of NSAIDs, new or change medications. Related Data Home Medications Medication Instructions Recorded Confirmed atorvastatin 10 mg tablet 10 mg PO HS 10/04/21 05/25/23 fluoxetine 20 mg capsule 20 mg PO DAILY 10/04/21 05/25/23 olanzapine 5 mg tablet 5 mg PO HS 10/04/21 05/25/23 pantoprazole 40 mg tablet,delayed 20 mg PO QAM 10/04/21 05/25/23 release (Protonix) sodium bicarbonate 650 mg tablet 650 mg PO TID 10/04/21 05/25/23 insulin aspart U-100 100 unit/mL 20 unit subcut TID 12/01/22 05/25/23 (3 mL) subcutaneous pen (Novolog FlexPen U-100 Insulin aspart) insulin detemir U-100 100 unit/mL 55 unit subcut HS 12/01/22 05/25/23 (3 mL) subcutaneous pen (Levemir FlexPen) sitagliptin phosphate 25 mg tablet 100 mg PO DAILY 12/01/22 05/25/23 (Januvia) acetaminophen 325 mg tablet 650 mg PO QID PRN Pain 05/25/23 05/25/23 alprazolam 0.5 mg tablet (Xanax) 0.5 mg PO HS 05/25/23 05/25/23 cholecalciferol (vitamin D3) 50 50 mcg PO DAILY 05/25/23 05/25/23 mcg (2,000 unit) tablet insulin detemir U-100 100 unit/mL 24 unit subcut DAILY 05/25/23 05/25/23 (3 mL) subcutaneous pen (Levemir FlexPen) miconazole nitrate 2 % topical 1 applic topical Q12H 05/25/23 05/25/23 cream (Antifungal (miconazole)) olopatadine 0.2 % eye drops 1 drp EACH EYE DAILY 05/25/23 05/25/23 ondansetron HCl 4 mg tablet 4 mg PO Q6H PRN Nausea And Vomiting 05/25/23 05/25/23 Allergies Allergy/AdvReac Type Severity Reaction Status Date / Time No Known Allergies Allergy Verified 10/10/23 18:37 Review of Systems Review of Systems: A 10 system review of systems was completed on the patient and is negative except for what is stated in the HPI. Nursing and ancillary documentation was reviewed. [facility] Past Medical History Medical History (Updated 10/10/23 @ 21:44 by Adithya Rios DO) Anemia Calculus of gallbladder without cholecystitis without obstruction Chronic indwelling Alonzo catheter Chronic kidney disease, stage 3b Depression with anxiety Diabetes mellitus Gastro-esophageal reflux disease without esophagitis History of colon cancer Hyperlipidemia Ileostomy in place Parastomal hernia without obstruction or gangrene Repeated falls Vascular dementia with behavioral disturbance Surgical History Surgical History Hx of colectomy Family History Family History Other Family history unknown Social History Social History Social History: Listed as DNR. She resides at [facility]. Never smoked. . No family listed on face sheet from the [place]. Smoking status: Never smoker Alcohol intake: never Substance use: never Lack of Transportation: No Lack of Food: Never True Current Housing: I Have Housing Concerned About Future Housing: No Difficulty Paying Gas/Electric Bills: No Difficulty Paying for Meds: No Currently Unemployed: No Education: Decline to Answer Difficulty w/ Childcare or Family Care: No Spiritual care concerns: No Comments At time of signature, I have re
[2023-10-10 21:39] LABS: Bacteria Urine 4+ /hpf; Need Manual Microscopic Reviewed; RBC Urine >100 /hpf (0-2); Squamous Epithelial Cell Urine Many /hpf (Few); WBC Urine >100 /hpf
[2023-10-10 21:40] VITALS: BP 132/65; PULSE 82; RESP 16; O2SAT 99
[2023-10-10 21:40] LABS: Appearance Urine Turbid (Clear); Blood Urine 3+ (Negative); Color Urine Red (Yellow); Glucose Urine UA Trace mg/dL (Negative); Ketones Urine Negative (Negative); Leukocyte Esterase Ur 3+ LEU/UL (Negative); Nitrate Urine Positive (Negative); Protein Urine 3+ mg/dL (Negative); Urobilinogen Urine 0.2 mg/dL (<2.0)
[2023-10-10 21:41] LABS: Specific Grav Ur 1.045 (1.001-1.035)
[2023-10-10 21:43] LABS: Add Urine Microscopic? YES
[2023-10-10] MEDS: SODIUM CHLORIDE 0.9% IV 1,000 ML 125 ML IV CONT (21:54)
--- NOTE | 2023-10-10 21:56 | PM.IMHP ---
H&P: HPI History of Present Illness Date/Time: 10/10/23 21:56 Chief Complaint: Rectal bleed Narrative: This is a 68-year-old female with past medical history significant for total colectomy secondary to colorectal cancer status post ileostomy this was 4 years ago. Patient presents to the emergency room due to rectal bleed. Patient has been her usual state of health up until this point. Denies any fevers, rigors, chills, nausea, vomiting has had good output in the ostomy. Preliminary workup was significant for CT of abdomen and pelvis reported as: EXAMINATION: CT abdomen pelvis wo/w con DATE: 10/10/2023 20:43 INDICATION: Rectal pain. TECHNIQUE: Computed tomography (CT) of the abdomen and pelvis was performed without and with 100 mL Omnipaque 350 intravenous contrast. Automated exposure control and iterative reconstruction technique were employed. The dose-length product was 726 mGy-cm. COMPARISON: CT abdomen and pelvis 05/25/2023 FINDINGS: The visualized portions of the lung bases demonstrate mild atelectasis. No pleural effusion. The heart size is normal. There are coronary artery calcifications. No pericardial effusion. Calcifications in the liver and spleen are consistent with old granulomatous disease. There are gallstones in the gallbladder, which is normal in size. The pancreas and adrenal glands are normal. There is a parenchymal calcification in right kidney. There is mild left hydronephrosis and hydroureter. There is urothelial enhancement in the ureters. There is a small focus of gas in the bladder lumen. Bladder wall thickening is noted, consistent with cystitis. There are changes of total colectomy. There is an ileostomy on the right. There are no dilated loops of bowel. There are no pathologically enlarged lymph nodes. There is no free intraperitoneal fluid. There is a chronic burst fracture of L2. There are is a chronic compression fracture T9. There is mild chronic anterior wedging of multiple vertebral bodies. IMPRESSION: 1. Cystitis and bilateral pyelitis. Mild left hydronephrosis and hydroureter. 2. Total colectomy and end ileostomy. Patient has been admitted for further evaluation management and treatment Review of Systems Review of Systems: Rectal bleed Constitutional: Constitutional: Denies chills, Denies fever(s), Denies malaise and Denies night sweats Eyes: Eyes: Denies change in vision ENT: Denies dysphagia and Denies odynophagia Cardiovascular: Cardiovascular: Denies chest pain Respiratory: Respiratory: Denies cough and Denies excessive phlegm production Gastrointestinal: Gastrointestinal: Denies abdominal pain, Denies nausea, Denies vomiting and Reports other (Rectal bleed) Genitourinary: Genitourinary: Denies dysuria Musculoskeletal: Musculoskeletal: Reports muscle weakness Integumentary/Breasts: Skin/Breast: Denies rash Neurologic: Denies focal weakness and Denies Sensory deficit (Neuro) Psychiatric: Psychiatric: Reports no additional psychiatric complaints and Reports as per HPI Endocrine: Endocrine: Denies cold intolerance, Denies fatigue, Denies flushing, Denies heat intolerance, Denies polyphagia, Denies polydipsia and Denies palpitations Hematologic/Lymphatic: Hematologic/Lymphatic: Reports no additional hematologic/lymphatic complaints and Reports as per HPI Allergic/Immunologic: Allergic/Immunologic: Reports no additional allergic/immunologic complaints and Reports as per HPI PMFSH Past Medical History Medical History (Updated 10/11/23 @ 06:04 by Georgette Mendieta MD) Anemia Calculus of gallbladder without cholecystitis without obstruction Chronic indwelling Alonzo catheter Chronic kidney disease, stage 3b Depression with anxiety Diabetes mellitus Gastro-esophageal reflux disease without esophagitis History of colon cancer Hyperlipidemia Ileostomy in place Parastomal hernia without obstruction or gangrene Repeated falls Vascular dementia with behavioral disturbance
[2023-10-10 23:06] VITALS: BP 144/66; PULSE 87; RESP 16; O2SAT 99
--- NOTE | 2023-10-10 23:19 | ADMGEN ---
This patient, Danii Mendez, was admitted to Medical Room 258-. Patient/family oriented to hospital policies and general routines including ID bracelet, bed and alarms, visiting hours, pain management, procedures, bathroom and other care routines, personal items, smoking policy, room service/diet, and visiting hours. Information on how to activate the Rapid Response Team has been discussed. Patient/Family are encouraged to report perceived risks to care and to ask questions if they do not understand what they are told or what they should do.
[2023-10-10 23:27] VITALS: BP 129/40; PULSE 82; RESP 18; TEMP 36.3; O2SAT 100
[2023-10-10 23:28] VITALS: BMI 25.0
[2023-10-11] MEDS: HYDROcodone/acetaminophen (*CRX) 5-325 MG TABLET 1 TAB PO ×3 (00:45→16:13)
[2023-10-11] MEDS: SODIUM CHLORIDE 0.9% IV 1,000 ML 125 ML IV CONT ×3 (05:57→22:04)
[2023-10-11 06:00] VITALS: BP 135/65; PULSE 93; RESP 18; TEMP 36.4; O2SAT 98
[2023-10-11 08:43] VITALS: PULSE 88
[2023-10-11] MEDS: CHOLECALCIFEROL 1,000 UNITS TABLET 2000 UNITS PO (08:43)
[2023-10-11] MEDS: methiMAzole 5 MG TAB PO (08:43)
[2023-10-11] MEDS: METOPROLOL TARTRATE 50 MG TAB PO ×2 (08:43→16:11)
[2023-10-11] MEDS: PANTOPRAZOLE 40 MG TABLET PO (08:44)
[2023-10-11] MEDS: SODIUM BICARBONATE TAB 650 MG TABLET PO ×3 (08:44→16:11)
[2023-10-11] MEDS: FLUoxetine HCL 20 MG CAPSULE 40 MG PO (08:45)
[2023-10-11] MEDS: MICONAZOLE NITRATE 2% CREAM 30 GM TUBE 1 APPLIC TOPICAL ×2 (08:46→21:55)
[2023-10-11] MEDS: OLOPATADINE 0.1% OPHTH SOLN 5 ML BTL 1 DROP EACH EYE (08:46)
[2023-10-11 08:50] VITALS: PULSE 88; RESP 18; O2SAT 98
[2023-10-11] MEDS: QUEtiapine FUMARATE 25 MG TABLET 12.5 MG PO ×2 (08:50→22:48)
[2023-10-11 08:52] LABS: Glucose Point of Care 264 mg/dl (65-105)
--- NOTE | 2023-10-11 09:09 | PM.IMPN ---
Progress Note: A&P Assessment and Plan (1) Acute pyelitis: Code(s): N10 - Acute pyelonephritis Status: Acute (2) GI bleed: Qualifiers: GI bleed type/associated pathology: unspecified gastrointestinal hemorrhage type Qualified Code(s): K92.2 - Gastrointestinal hemorrhage, unspecified Code(s): K92.2 - Gastrointestinal hemorrhage, unspecified Status: Acute (3) TONNY (acute kidney injury): Code(s): N17.9 - Acute kidney failure, unspecified Status: Acute (4) Ileostomy in place: Code(s): Z93.2 - Ileostomy status Status: Acute (5) Acute hyperkalemia: Code(s): E87.5 - Hyperkalemia Status: Acute (6) Gross hematuria: Code(s): R31.0 - Gross hematuria Status: Acute Plan This is a 68-year-old female with past medical history significant for total colectomy secondary to colorectal cancer status post ileostomy this was 4 years ago.? Patient presents to the emergency room due to rectal bleed.? Patient has been her usual state of health up until this point.? Denies any fevers, rigors, chills, nausea, vomiting has had good output in the ostomy.? Preliminary workup was significant for CT of abdomen and pelvis reported as: Cystitis and bilateral pyelitis. Mild left hydronephrosis and hydroureter. 2. Total colectomy and end ileostomy. Acute pyelitis and gross hematuria ?Code(s): N10 - Acute pyelonephritis ?Status:?Acute ?Assessment and Plan: Patient started on Rocephin Await cultures Urine is red in color, patient has gross hematuria Consult urologist for evaluation and treatment (2) Ileostomy in place: ?Code(s): Z93.2 - Ileostomy status ?Status:?Acute ?Assessment and Plan: Ostomy care Suspected rectal bleeding upon arrival Unclear etiology Patient has anemia, hemoglobin 10.9, close to baseline Patient is hemodynamically stable Consulted general surgeon, per general surgeon evaluation, there was no bleeding or any drainage from per healed perineum (3) Gastro-esophageal reflux disease without esophagitis: ?Code(s): K21.9 - Gastro-esophageal reflux disease without esophagitis ?Status:?Acute ?Assessment and Plan: PPI (4) Diabetes mellitus: ?Code(s): E11.9 - Type 2 diabetes mellitus without complications ?Status:?Acute ?Assessment and Plan: Holding sitagliptin Continue insulin (5) Chronic indwelling Alonzo catheter: ?Code(s): Z97.8 - Presence of other specified devices ?Status:?Acute ?Assessment and Plan: Alonzo care (6) TONNY (acute kidney injury) hyponatremia ?Code(s): Gentle IV fluids (7) Acute on chronic kidney failure: ?Qualifiers: ?Acute renal failure type:?unspecified??Chronic kidney disease stage:?unspecified stage? Qualified Code(s):?N17.9 - Acute kidney failure, unspecified; N18.9 - Chronic kidney disease, unspecified ?Code(s): N17.9 - Acute kidney failure, unspecified; N18.9 - Chronic kidney disease, unspecified ?Status:?Acute ?Assessment and Plan: Subjective Date/time seen: 10/11/23 09:09 Interval history: I saw and examined patient. Patient is still confused, possible baseline, unable to provide detailed history. Per nurse report, patient has latrice hematuria Exam Narrative: GENERAL: Pleasant, in no acute distress. Well-nourished. - EYES: EOMI. Anicteric. - HENT: Moist mucous membranes. - LUNGS: Clear to auscultation bilaterally, no wheezing, rhonchi, or rales. - CARDIOVASCULAR: Regular rate and rhythm. No murmur. No JVD. - ABDOMEN: Soft, non-tender and non-distended. No palpable masses. Colostomy in-situ - EXTREMITIES: No edema. Peripheral pulses 2+. Non-tender. - NEUROLOGIC: No focal neurological deficits. CN II-XII grossly intact. General weakness - PSYCHIATRIC: Awake, Alert and oriented x 3. Appropriate mood and affect. - SKIN: No rashes or lesions. Warm. - LYMPH: No cervical lymphade
[2023-10-11 09:57] LABS: Basophils Percent Auto 0.7 % (0.2-1.2); Eosinophils Absolute Auto 0.1 K/mm3 (0-0.3); Eosinophils Percent Auto 1.8 % (0-4.4); Hematocrit 30.7 % (37.0-47.0); Immature Granulocyte Absolute 0.02 K/mm3 (0.00-0.031); Immature Granulocyte Percent A 0.4 % (0-0.5); Lymphocytes Absolute Auto 0.94 K/mm3 (0.9-3.2); Lymphocytes Percent Auto 16.8 % (18.3-44.2); Mean Corpuscular HGB Conc 29.3 g/dl (32-36); Mean Corpuscular Hemoglobin 24.6 pg (26-34); Mean Corpuscular Volume 83.9 fl (80-100); Mean Platelet Volume 8.5 fl (7.4-10.4); Monocytes Percent Auto 17.1 % (2.6-8.5); Neutrophils Absolute Auto 3.6 K/mm3 (1.3-6.7); Neutrophils Percent Auto 63.2 % (45.5-73.1); Platelet Count Result 320 k/mm3 (150-375); Red Blood Count 3.66 M/mm3 (4.2-5.4); Red Cell Distribution Width 14.6 % (11.5-14.5); White Blood Count 5.6 K/mm3 (4.5-10.0)
[2023-10-11 10:06] LABS: Anion Gap 10 mmol/L (8-16); Blood Urea Nitrogen 28 mg/dL (7-17); Calcium 8.6 mg/dL (8.4-10.2); Carbon Dioxide 16 mmol/L (22-30); Chloride 108 mmol/L (98-107); Estimated Glomerular Filt Rate 55; Glucose 265 mg/dL (65-110); Potassium 4.4 mmol/L (3.4-5.0); Sodium 134 mmol/L (137-145)
[2023-10-11 10:20] LABS: Anisocytosis 1+ (NORMAL); Hypochromasia 1+ (NORMAL); Platelet Estimate Adequate (Adequate); Schistocytes None Seen (NORMAL)
[2023-10-11 12:05] LABS: Glucose Point of Care 241 mg/dl (65-105)
--- NOTE | 2023-10-11 12:14 | PM.CNGS ---
Assessment and Plan Assessment and plan (1) Ileostomy in place: Code(s): Z93.2 - Ileostomy status Status: Acute Assessment and Plan: Patient is status post total colectomy and abdominoperineal resection with an ileostomy. Ileostomy is functioning well. The perineum appears normal s/p APR without any drainage or erythema. There is no fistula. If there was any bleeding, could consider it being from her cystitis, but there is no bleeding or any drainage at all coming from her healed perineum. (2) Acute pyelitis: Code(s): N10 - Acute pyelonephritis Status: Acute Assessment and Plan: Continue IV antibiotics per primary service. UA noted to have >100 RBCs and urine color red, could have been the culprit of the bleeding reported by the long-term. (3) TONNY (acute kidney injury): Code(s): N17.9 - Acute kidney failure, unspecified Status: Acute (4) Vascular dementia with behavioral disturbance: Code(s): F01.51 - Vascular dementia, unspecified severity, with behavioral disturbance Status: Acute (5) Diabetes mellitus: Code(s): E11.9 - Type 2 diabetes mellitus without complications Status: Acute Plan I have discussed the patient's case and plan of care with Dr. Azar. History of Present Illness Consult details Consult date: 10/11/23 Reason for consult: other (Rectal discharge, possible fistula) Requesting physician: Adithya Rios DO Narrative: This is a 68-year-old woman with dementia who presented to the ER from [facility] for complaints of bleeding, thought to be from the rectum. The patient is a poor historian, therefore history is provided from review of her electronic medical record and from her daughter via phone. In the ER, she was found to have CT evidence of cystitis and bilateral pyelitis with mild left hydronephrosis and hydroureter. CT also showed a total colectomy and end ileostomy. Her daughter reports her having colorectal cancer about 13 years ago with multiple masses in the colon and a rectal mass. She had a total colectomy with abdominoperineal resection and ileostomy. She has been admitted for her urinary tract infection and started on IV antibiotics. Our service has been consulted for question of rectal drainage. She is now seen on the medical floor. She reports that the nurses at the long-term noticed some bleeding when cleaning her up but she is not sure where. She is tired and wants to sleep. She asked multiple times to leave her alone. Review of Systems Review of Systems: ROS unobtainable: Yes unobtainable due to mental status PMFSH Past Medical History Medical History (Updated 10/11/23 @ 14:20 by Rosmery Mckeon MD) Anemia Calculus of gallbladder without cholecystitis without obstruction Chronic kidney disease, stage 3b Depression with anxiety Diabetes mellitus Gastro-esophageal reflux disease without esophagitis History of colon cancer Hyperlipidemia Ileostomy in place Parastomal hernia without obstruction or gangrene Repeated falls Vascular dementia with behavioral disturbance Surgical History Surgical History History of total abdominal hysterectomy Hx of colectomy total abdominal colectomy and abdominoperineal resection with ileostomy Family History Family History Other Family history unknown Social History Social History Social History: Listed as DNR. She resides at [facility]. Never smoked. . No family listed on face sheet from the [place]. Smoking status: Former smoker Alcohol intake: never Substance use: never Substance use type: does not use Do You Feel Safe in your Home?: Yes Lack of Transportation: No Lack of Food: Never True Current Housing: I Have Housing Concerned About Future Housing: No
[2023-10-11] MEDS: INSULIN ASPART (*BKC) 100 UNITS/ML SUB-Q ×2 (12:20→17:00)
--- NOTE | 2023-10-11 13:43 | PC.NURSE ---
On 10/11/23, the student, [Valentina Pereira], provided care and completed [facility] documentation on this patient. I have reviewed the student's documentation and agree with the findings.
[2023-10-11 14:01] VITALS: BP 126/63; PULSE 78; RESP 16; TEMP 36.7; O2SAT 98
[2023-10-11 16:11] VITALS: PULSE 79
[2023-10-11 16:56] LABS: Glucose Point of Care 204 mg/dl (65-105)
--- NOTE | 2023-10-11 17:55 | WPDURCON ---
Assessment and Plan Assessment and plan (1) Gross hematuria: Code(s): R31.0 - Gross hematuria Status: Acute (2) Hemorrhagic cystitis: Code(s): N30.91 - Cystitis, unspecified with hematuria Status: Acute Assessment and Plan: Gross hematuria which seems to be, almost certainly, due to hemorrhagic cystitis. Her urinalysis certainly appears infected and CT findings showing diffuse bladder wall thickening and mild left hydronephrosis skin consistent with that diagnosis. I favor broad-spectrum antibiotics pending culture results. Given the fact she is afebrile and not septic I will defer any intervention for the mild left hydronephrosis. I anticipate that would resolve with appropriate care for her cystitis. Urology Consult Note HPI Date Seen: 10/11/23 Requesting Physician: Georgette Mendieta MD Primary Care Provider: PHYSICIAN NOT ON STAFF Consult Narrative Narrative: Danii Mendez is a 68 year old female Who is previously unknown to our practice, admitted through the emergency department with bloody vaginal drainage. Patient is a very poor historian and there was nobody available for consultation currently. It seems as if there was some concern this was rectal bleeding but the patient is status post total colectomy approximately 13 years ago for colon cancer. Subsequently she was found to have bloody urine. Urinalysis is suggestive of infection and CT scan shows findings consistent with acute cystitis ( diffuse bladder wall thickening and mild left hydronephrosis. She has been admitted and started empirically on IV antibiotics pending urine culture results. Patient does deny a history of recurrent urinary tract infections but, again, that history is unreliable. Review of Systems Review of Systems: ROS unobtainable: Yes unobtainable due to mental status [facility] Past Medical History Medical History (Updated 10/11/23 @ 17:58 by Pablo Arroyo MD) Anemia Calculus of gallbladder without cholecystitis without obstruction Chronic kidney disease, stage 3b Depression with anxiety Diabetes mellitus Gastro-esophageal reflux disease without esophagitis History of colon cancer Hyperlipidemia Ileostomy in place Parastomal hernia without obstruction or gangrene Repeated falls Vascular dementia with behavioral disturbance Surgical History Surgical History History of total abdominal hysterectomy Hx of colectomy total abdominal colectomy and abdominoperineal resection with ileostomy Family History Family History Other Family history unknown Social History Social History Social History: Listed as DNR. She resides at [facility]. Never smoked. . No family listed on face sheet from the [place]. Smoking status: Former smoker Alcohol intake: never Substance use: never Substance use type: does not use Do You Feel Safe in your Home?: Yes Lack of Transportation: No Lack of Food: Never True Current Housing: I Have Housing Concerned About Future Housing: No Difficulty Paying Gas/Electric Bills: No Difficulty Paying for Meds: No Currently Unemployed: No Education: Grade School Difficulty w/ Childcare or Family Care: No Spiritual care concerns: No Meds Home Medications and Allergies Home Medications Medication Instructions Recorded Confirmed Type atorvastatin 10 mg tablet 10 mg PO HS 10/04/21 10/10/23 History fluoxetine 20 mg capsule 40 mg PO DAILY 10/04/21 10/10/23 History pantoprazole 40 mg tablet,delayed 40 mg PO QAM 10/04/21 10/10/23 History release (Protonix) sodium bicarbonate 650 mg tablet 650 mg PO TID 10/04/21 10/10/23 History insulin aspart U-100 100 unit/mL 20 unit subcut TID 12/01/22 10/10/23 History (3 mL) subcutaneous pen (Novolog FlexPen U-100
[2023-10-11 19:55] VITALS: BP 116/48; PULSE 74; RESP 18; TEMP 36.6; O2SAT 99
[2023-10-11 21:16] LABS: Glucose Point of Care 161 mg/dl (65-105)
[2023-10-11] MEDS: ATORVASTATIN 10 MG TABLET PO (21:55)
[2023-10-11] MEDS: ALPRAZolam (*CRX) 0.5 MG TABLET PO (21:55)
[2023-10-11] MEDS: INSULIN GLARGINE (*BKC) 100 UNITS/ML 55 UNITS SUB-Q (22:14)
[2023-10-12 05:53] VITALS: BP 149/53; PULSE 86; RESP 18; TEMP 36.8; O2SAT 100
[2023-10-12] MEDS: SODIUM CHLORIDE 0.9% IV 1,000 ML 125 ML IV CONT ×2 (06:33→16:42)
--- NOTE | 2023-10-12 08:30 | PM.IMPN ---
Progress Note: A&P Assessment and Plan (1) Acute pyelitis: Code(s): N10 - Acute pyelonephritis Status: Acute (2) GI bleed: Qualifiers: GI bleed type/associated pathology: unspecified gastrointestinal hemorrhage type Qualified Code(s): K92.2 - Gastrointestinal hemorrhage, unspecified Code(s): K92.2 - Gastrointestinal hemorrhage, unspecified Status: Acute (3) TONNY (acute kidney injury): Code(s): N17.9 - Acute kidney failure, unspecified Status: Acute (4) Ileostomy in place: Code(s): Z93.2 - Ileostomy status Status: Acute (5) Acute hyperkalemia: Code(s): E87.5 - Hyperkalemia Status: Acute (6) Gross hematuria: Code(s): R31.0 - Gross hematuria Status: Acute Plan This is a 68-year-old female with past medical history significant for total colectomy secondary to colorectal cancer status post ileostomy this was 4 years ago.? Patient presents to the emergency room due to rectal bleed.? Patient has been her usual state of health up until this point.? Denies any fevers, rigors, chills, nausea, vomiting has had good output in the ostomy.? Preliminary workup was significant for CT of abdomen and pelvis reported as: Cystitis and bilateral pyelitis. Mild left hydronephrosis and hydroureter. 2. Total colectomy and end ileostomy. Acute pyelitis and gross hematuria ?Code(s): N10 - Acute pyelonephritis ?Status:?Acute ?Assessment and Plan: Patient started on Rocephin Await cultures Urine is red in color, patient has gross hematuria Consult urologist for evaluation and treatment Appreciate urologist consultation, urologist considers gross hematuria due to hemorrhagic cystitis, recommend continue antibiotics, and defer any intervention (2) Ileostomy in place: ?Code(s): Z93.2 - Ileostomy status ?Status:?Acute ?Assessment and Plan: Ostomy care Suspected rectal bleeding upon arrival Unclear etiology Patient has anemia, hemoglobin 10.9, close to baseline Patient is hemodynamically stable Consulted general surgeon, per general surgeon evaluation, there was no bleeding or any drainage from per healed perineum (3) Gastro-esophageal reflux disease without esophagitis: ?Code(s): K21.9 - Gastro-esophageal reflux disease without esophagitis ?Status:?Acute ?Assessment and Plan: PPI (4) Diabetes mellitus: ?Code(s): E11.9 - Type 2 diabetes mellitus without complications ?Status:?Acute ?Assessment and Plan: Holding sitagliptin Continue insulin (5) Chronic indwelling Alonzo catheter: ?Code(s): Z97.8 - Presence of other specified devices ?Status:?Acute ?Assessment and Plan: Alonzo care (6) TONNY (acute kidney injury) hyponatremia ?Code(s): Gentle IV fluids normal saline 125 mL/hour Kidney function is improving (7) Acute on chronic kidney failure: ?Qualifiers: ?Acute renal failure type:?unspecified??Chronic kidney disease stage:?unspecified stage? Qualified Code(s):?N17.9 - Acute kidney failure, unspecified; N18.9 - Chronic kidney disease, unspecified ?Code(s): N17.9 - Acute kidney failure, unspecified; N18.9 - Chronic kidney disease, unspecified ?Status:?Acute ?Assessment and Plan: Subjective Date/time seen: 10/12/23 08:30 Interval history: I saw and examined patient. Patient is still confused, possible baseline, mental status improving, urine culture grew E coli, patient is afebrile, blood pressure stable Exam Narrative: GENERAL: Pleasant, in no acute distress. Well-nourished. - EYES: EOMI. Anicteric. - HENT: Moist mucous membranes. - LUNGS: Clear to auscultation bilaterally, no wheezing, rhonchi, or rales. - CARDIOVASCULAR: Regular rate and rhythm. No murmur. No JVD. - ABDOMEN: Soft, non-tender and non-distended. No palpable masses. Colostomy in-situ - EXTREMITIES: No edema. Peripheral pulses 2+. Non-tender. - NEUR
[2023-10-12 08:47] LABS: Glucose Point of Care 104 mg/dl (65-105)
[2023-10-12] MEDS: methiMAzole 5 MG TAB PO (09:27)
[2023-10-12] MEDS: METOPROLOL TARTRATE 50 MG TAB PO ×2 (09:27→17:31)
[2023-10-12] MEDS: FLUoxetine HCL 20 MG CAPSULE 40 MG PO (09:27)
[2023-10-12] MEDS: CHOLECALCIFEROL 1,000 UNITS TABLET 2000 UNITS PO (09:27)
[2023-10-12] MEDS: SODIUM BICARBONATE TAB 650 MG TABLET PO ×3 (09:29→17:28)
[2023-10-12] MEDS: PANTOPRAZOLE 40 MG TABLET PO (09:29)
[2023-10-12] MEDS: QUEtiapine FUMARATE 25 MG TABLET 12.5 MG PO ×2 (09:29→20:28)
[2023-10-12] MEDS: OLOPATADINE 0.1% OPHTH SOLN 5 ML BTL 1 DROP EACH EYE (09:29)
[2023-10-12] MEDS: HYDROcodone/acetaminophen (*CRX) 5-325 MG TABLET 1 TAB PO ×3 (09:36→20:28)
[2023-10-12 09:47] VITALS: BMI 25.0
[2023-10-12 10:33] LABS: Basophils Percent Auto 0.5 % (0.2-1.2); Eosinophils Absolute Auto 0.1 K/mm3 (0-0.3); Eosinophils Percent Auto 2.4 % (0-4.4); Hematocrit 32.9 % (37.0-47.0); Hemoglobin 9.6 g/dL (12.0-15.0); Lymphocytes Absolute Auto 0.83 K/mm3 (0.9-3.2); Lymphocytes Percent Auto 15.2 % (18.3-44.2); Mean Corpuscular HGB Conc 29.2 g/dl (32-36); Mean Corpuscular Hemoglobin 24.7 pg (26-34); Mean Corpuscular Volume 84.6 fl (80-100); Mean Platelet Volume 8.2 fl (7.4-10.4); Monocytes Absolute Auto 0.8 K/mm3 (0.1-0.6); Monocytes Percent Auto 13.7 % (2.6-8.5); Neutrophils Absolute Auto 3.7 K/mm3 (1.3-6.7); Neutrophils Percent Auto 68.2 % (45.5-73.1); Platelet Count Result 341 k/mm3 (150-375); Red Blood Count 3.89 M/mm3 (4.2-5.4); Red Cell Distribution Width 14.6 % (11.5-14.5); White Blood Count 5.5 K/mm3 (4.5-10.0)
[2023-10-12] MEDS: MICONAZOLE NITRATE 2% CREAM 30 GM TUBE 1 APPLIC TOPICAL ×2 (10:45→20:58)
[2023-10-12 10:51] LABS: Anion Gap 7 mmol/L (8-16); Blood Urea Nitrogen 16 mg/dL (7-17); Calcium 8.7 mg/dL (8.4-10.2); Carbon Dioxide 19 mmol/L (22-30); Chloride 111 mmol/L (98-107); Estimated Glomerular Filt Rate > 60; Glucose 271 mg/dL (65-110); Potassium 4.1 mmol/L (3.4-5.0); Sodium 137 mmol/L (137-145)
[2023-10-12 12:03] LABS: Glucose Point of Care 313 mg/dl (65-105)
[2023-10-12] MEDS: INSULIN ASPART (*BKC) 100 UNITS/ML SUB-Q ×2 (12:07→17:28)
[2023-10-12 12:18] LABS: Anisocytosis 1+ (NORMAL); Hypochromasia 1+ (NORMAL); Platelet Estimate Adequate (Adequate); Schistocytes None Seen (NORMAL)
[2023-10-12] MEDS: ACETAMINOPHEN 325 MG TABLET 650 MG PO (13:46)
[2023-10-12 14:10] VITALS: BP 114/48; PULSE 78; RESP 16; TEMP 36.5; O2SAT 99
[2023-10-12 17:17] LABS: Glucose Point of Care 242 mg/dl (65-105)
[2023-10-12 17:22] VITALS: BP 119/84
[2023-10-12] MEDS: ATORVASTATIN 10 MG TABLET PO (20:28)
[2023-10-12] MEDS: INSULIN GLARGINE (*BKC) 100 UNITS/ML 55 UNITS SUB-Q (20:30)
[2023-10-12 20:54] LABS: Glucose Point of Care 312 mg/dl (65-105)
[2023-10-12 21:26] VITALS: BP 130/49; PULSE 74; RESP 14; TEMP 36.3; O2SAT 99
[2023-10-13] MEDS: SODIUM CHLORIDE 0.9% IV 1,000 ML 125 ML IV CONT (00:55)
[2023-10-13] MEDS: HYDROcodone/acetaminophen (*CRX) 5-325 MG TABLET 1 TAB PO ×4 (04:42→20:23)
[2023-10-13 05:42] LABS: Basophils Percent Auto 0.3 % (0.2-1.2); Eosinophils Absolute Auto 0.1 K/mm3 (0-0.3); Hematocrit 32.6 % (37.0-47.0); Hemoglobin 9.9 g/dL (12.0-15.0); Immature Granulocyte Absolute 0.02 K/mm3 (0.00-0.031); Immature Granulocyte Percent A 0.3 % (0-0.5); Lymphocytes Absolute Auto 0.68 K/mm3 (0.9-3.2); Lymphocytes Percent Auto 11.4 % (18.3-44.2); Mean Corpuscular HGB Conc 30.4 g/dl (32-36); Mean Corpuscular Hemoglobin 24.9 pg (26-34); Mean Corpuscular Volume 82.1 fl (80-100); Mean Platelet Volume 8.3 fl (7.4-10.4); Monocytes Absolute Auto 0.7 K/mm3 (0.1-0.6); Monocytes Percent Auto 12.3 % (2.6-8.5); Neutrophils Absolute Auto 4.4 K/mm3 (1.3-6.7); Neutrophils Percent Auto 73.7 % (45.5-73.1); Platelet Count Result 330 k/mm3 (150-375); Red Blood Count 3.97 M/mm3 (4.2-5.4); Red Cell Distribution Width 14.3 % (11.5-14.5); White Blood Count 5.9 K/mm3 (4.5-10.0)
[2023-10-13 06:00] VITALS: BP 112/40; PULSE 74; RESP 18; TEMP 36.5; O2SAT 100
[2023-10-13 06:00] LABS: Anion Gap 6 mmol/L (8-16); Blood Urea Nitrogen 11 mg/dL (7-17); Calcium 8.3 mg/dL (8.4-10.2); Carbon Dioxide 19 mmol/L (22-30); Chloride 110 mmol/L (98-107); Estimated Glomerular Filt Rate > 60; Glucose 172 mg/dL (65-110); Potassium 3.9 mmol/L (3.4-5.0); Sodium 135 mmol/L (137-145)
[2023-10-13 08:01] LABS: Glucose Point of Care 125 mg/dl (65-105)
[2023-10-13 09:00] VITALS: BP 133/60; PULSE 73
[2023-10-13 09:07] VITALS: PULSE 73
[2023-10-13] MEDS: PANTOPRAZOLE 40 MG TABLET PO (09:07)
[2023-10-13] MEDS: methiMAzole 5 MG TAB PO (09:07)
[2023-10-13] MEDS: QUEtiapine FUMARATE 25 MG TABLET 12.5 MG PO (09:07)
[2023-10-13] MEDS: CHOLECALCIFEROL 1,000 UNITS TABLET 2000 UNITS PO (09:07)
[2023-10-13] MEDS: METOPROLOL TARTRATE 50 MG TAB PO ×2 (09:07→17:07)
[2023-10-13] MEDS: SODIUM BICARBONATE TAB 650 MG TABLET PO ×3 (09:07→17:07)
[2023-10-13] MEDS: FLUoxetine HCL 20 MG CAPSULE 40 MG PO (09:07)
--- NOTE | 2023-10-13 09:09 | PM.IMPN ---
Progress Note: A&P Assessment and Plan (1) Acute pyelitis: Code(s): N10 - Acute pyelonephritis Status: Acute (2) GI bleed: Qualifiers: GI bleed type/associated pathology: unspecified gastrointestinal hemorrhage type Qualified Code(s): K92.2 - Gastrointestinal hemorrhage, unspecified Code(s): K92.2 - Gastrointestinal hemorrhage, unspecified Status: Acute (3) TONNY (acute kidney injury): Code(s): N17.9 - Acute kidney failure, unspecified Status: Acute (4) Ileostomy in place: Code(s): Z93.2 - Ileostomy status Status: Acute (5) Acute hyperkalemia: Code(s): E87.5 - Hyperkalemia Status: Acute (6) Gross hematuria: Code(s): R31.0 - Gross hematuria Status: Acute Plan This is a 68-year-old female with past medical history significant for total colectomy secondary to colorectal cancer status post ileostomy this was 4 years ago.? Patient presents to the emergency room due to rectal bleed.? Patient has been her usual state of health up until this point.? Denies any fevers, rigors, chills, nausea, vomiting has had good output in the ostomy.? Preliminary workup was significant for CT of abdomen and pelvis reported as: Cystitis and bilateral pyelitis. Mild left hydronephrosis and hydroureter. 2. Total colectomy and end ileostomy. Acute pyelitis and gross hematuria ?Code(s): N10 - Acute pyelonephritis ?Status:?Acute ?Assessment and Plan: Patient started on Rocephin Await cultures Urine is red in color, patient has gross hematuria Consult urologist for evaluation and treatment Appreciate urologist consultation, urologist considers gross hematuria due to hemorrhagic cystitis, recommend continue antibiotics, and defer any intervention 10/13: Urine culture grows E coli, resistant to ceftriaxone, susceptible to Zosyn. Switch from ceftriaxone to Zosyn IV today (2) Ileostomy in place: ?Code(s): Z93.2 - Ileostomy status ?Status:?Acute ?Assessment and Plan: Ostomy care Suspected rectal bleeding upon arrival Unclear etiology Patient has anemia, hemoglobin 10.9, close to baseline Patient is hemodynamically stable Consulted general surgeon, per general surgeon evaluation, there was no bleeding or any drainage from per healed perineum (3) Gastro-esophageal reflux disease without esophagitis: ?Code(s): K21.9 - Gastro-esophageal reflux disease without esophagitis ?Status:?Acute ?Assessment and Plan: PPI (4) Diabetes mellitus: ?Code(s): E11.9 - Type 2 diabetes mellitus without complications ?Status:?Acute ?Assessment and Plan: Holding sitagliptin Continue insulin (5) Chronic indwelling Alonzo catheter: ?Code(s): Z97.8 - Presence of other specified devices ?Status:?Acute ?Assessment and Plan: Alonzo care (6) TONNY (acute kidney injury) hyponatremia ?Code(s): Gentle IV fluids normal saline 125 mL/hour Kidney function is improving Now resolves Decrease normal saline to 75 mL part today 10/13 (7) Acute on chronic kidney failure: ?Qualifiers: ?Acute renal failure type:?unspecified??Chronic kidney disease stage:?unspecified stage? Qualified Code(s):?N17.9 - Acute kidney failure, unspecified; N18.9 - Chronic kidney disease, unspecified ?Code(s): N17.9 - Acute kidney failure, unspecified; N18.9 - Chronic kidney disease, unspecified ?Status:?Acute ?Assessment and Plan: Subjective Date/time seen: 10/13/23 09:09 Interval history: I saw and examined patient. mental status improving, urine culture grew E coli with multiple truck resistance, including ceftriaxone, patient is afebrile, blood pressure stable Exam Narrative: GENERAL: Pleasant, in no acute distress. Well-nourished. - EYES: EOMI. Anicteric. - HENT: Moist mucous membranes. - LUNGS: Clear to auscultation bilaterally, no wheezing, rhonchi, or rales. - CARDIOVASCULAR: Regul
[2023-10-13] MEDS: SODIUM CHLORIDE 0.9% IV 1,000 ML 75 ML IV CONT (09:14)
[2023-10-13] MEDS: PIPERACILLN/TAZ 3.375GM/NS50ML 3.375 GM/50 ML BAG IVPB ×3 (11:10→20:24)
[2023-10-13] MEDS: MICONAZOLE NITRATE 2% CREAM 30 GM TUBE 1 APPLIC TOPICAL ×2 (11:10→20:24)
[2023-10-13] MEDS: DEXTROSE 50% 25 GM/50 ML SYRINGE IV PUSH (12:09)
[2023-10-13 12:13] LABS: Glucose Point of Care 39 mg/dl (65-105)
[2023-10-13 12:13] LABS: Glucose Point of Care 47 mg/dl (65-105)
[2023-10-13 12:36] LABS: Glucose Point of Care 145 mg/dl (65-105)
[2023-10-13] MEDS: DEXTROSE 5%/0.9% SOD CHL 1,000 ML 75 ML IV CONT (13:33)
[2023-10-13 14:00] VITALS: BP 115/58; PULSE 67; RESP 16; TEMP 36.3; O2SAT 100
[2023-10-13 14:46] LABS: Glucose Point of Care 200 mg/dl (65-105)
--- NOTE | 2023-10-13 15:25 | PCOTNOTE ---
Attempted OT evaluation x2. Pt. refused due to pain and not wanting to get out of bed. Pt. educated on the importance of getting out of bed. She closed her eyes and states I dont want to . Will attempt again as able.
--- NOTE | 2023-10-13 15:32 | PCPTNOTE ---
Pt sleeping, aroused slightly and declined therapy services. Asked kristy if she would be willing to participate tomorow and she stated we'll see . Will reattempt PT evaluation tomorrow.
[2023-10-13 17:09] LABS: Glucose Point of Care 199 mg/dl (65-105)
[2023-10-13] MEDS: QUEtiapine FUMARATE 12.5 MG TABLET PO (20:23)
[2023-10-13] MEDS: ATORVASTATIN 10 MG TABLET PO (20:23)
[2023-10-13] MEDS: INSULIN GLARGINE (*BKC) 100 UNITS/ML 55 UNITS SUB-Q (20:24)
[2023-10-13 21:53] VITALS: BP 147/63; PULSE 82; RESP 16; TEMP 36.8; O2SAT 100
[2023-10-14] MEDS: HYDROcodone/acetaminophen (*CRX) 5-325 MG TABLET 1 TAB PO ×5 (01:28→19:49)
[2023-10-14] MEDS: DEXTROSE 5%/0.9% SOD CHL 1,000 ML 75 ML IV CONT ×2 (02:36→19:50)
[2023-10-14] MEDS: PIPERACILLN/TAZ 3.375GM/NS50ML 3.375 GM/50 ML BAG IVPB ×4 (02:37→20:17)
[2023-10-14 05:48] VITALS: BP 153/69; PULSE 85; RESP 16; TEMP 36.9; O2SAT 100
--- NOTE | 2023-10-14 08:24 | PM.IMPN ---
Progress Note: A&P Assessment and Plan (1) Acute pyelitis: Code(s): N10 - Acute pyelonephritis Status: Acute (2) GI bleed: Qualifiers: GI bleed type/associated pathology: unspecified gastrointestinal hemorrhage type Qualified Code(s): K92.2 - Gastrointestinal hemorrhage, unspecified Code(s): K92.2 - Gastrointestinal hemorrhage, unspecified Status: Acute (3) TONNY (acute kidney injury): Code(s): N17.9 - Acute kidney failure, unspecified Status: Acute (4) Ileostomy in place: Code(s): Z93.2 - Ileostomy status Status: Acute (5) Acute hyperkalemia: Code(s): E87.5 - Hyperkalemia Status: Acute (6) Gross hematuria: Code(s): R31.0 - Gross hematuria Status: Acute Plan This is a 68-year-old female with past medical history significant for total colectomy secondary to colorectal cancer status post ileostomy this was 4 years ago.? Patient presents to the emergency room due to rectal bleed.? Patient has been her usual state of health up until this point.? Denies any fevers, rigors, chills, nausea, vomiting has had good output in the ostomy.? Preliminary workup was significant for CT of abdomen and pelvis reported as: Cystitis and bilateral pyelitis. Mild left hydronephrosis and hydroureter. 2. Total colectomy and end ileostomy. Acute pyelitis and gross hematuria ?Code(s): N10 - Acute pyelonephritis ?Status:?Acute ?Assessment and Plan: Patient started on Rocephin Await cultures Urine is red in color, patient has gross hematuria Consult urologist for evaluation and treatment Appreciate urologist consultation, urologist considers gross hematuria due to hemorrhagic cystitis, recommend continue antibiotics, and defer any intervention 10/13: Urine culture grows E coli, resistant to ceftriaxone, susceptible to Zosyn. Switch from ceftriaxone to Zosyn IV 10/14 c/w with abx today and repeat UA (2) Ileostomy in place: ?Code(s): Z93.2 - Ileostomy status ?Status:?Acute ?Assessment and Plan: Ostomy care Suspected rectal bleeding upon arrival Unclear etiology Patient has anemia, hemoglobin 10.9, close to baseline Patient is hemodynamically stable Consulted general surgeon, per general surgeon evaluation, there was no bleeding or any drainage from per healed perineum (3) Gastro-esophageal reflux disease without esophagitis: ?Code(s): K21.9 - Gastro-esophageal reflux disease without esophagitis ?Status:?Acute ?Assessment and Plan: PPI (4) Diabetes mellitus: ?Code(s): E11.9 - Type 2 diabetes mellitus without complications ?Status:?Acute ?Assessment and Plan: Holding sitagliptin Continue insulin (5) Chronic indwelling Alonzo catheter: ?Code(s): Z97.8 - Presence of other specified devices ?Status:?Acute ?Assessment and Plan: Alonzo care (6) TONNY (acute kidney injury) hyponatremia ?Code(s): Gentle IV fluids normal saline 125 mL/hour Kidney function is improving Now resolves Decrease normal saline to 75 mL part today 10/13 (7) Acute on chronic kidney failure: ?Qualifiers: ?Acute renal failure type:?unspecified??Chronic kidney disease stage:?unspecified stage? Qualified Code(s):?N17.9 - Acute kidney failure, unspecified; N18.9 - Chronic kidney disease, unspecified ?Code(s): N17.9 - Acute kidney failure, unspecified; N18.9 - Chronic kidney disease, unspecified ?Status:?Acute ?Assessment and Plan: Subjective Date/time seen: 10/14/23 08:24 Interval history: I saw and examined patient. mental status continue to improve, patient is able to answer questions,patient is afebrile, blood pressure stable, NO GROSS HEMATURIA Exam Narrative: GENERAL: Pleasant, in no acute distress. Well-nourished. - EYES: EOMI. Anicteric. - HENT: Moist mucous membranes. - LUNGS: Clear to auscultation bilaterally, no wheezing, rhonchi, or rales. - C
--- NOTE | 2023-10-14 08:32 | PCPTNOTE ---
0833; Pt declined therapy second day in a row, did not give a reason. Encouraged pt to get up to recliner she stated they were to big, encouraged to regular chair to be able to eat easier pt declines. Attempted to educate patient on benefits of maintaining current movement, decrease secondary complications, she continued to decline.
[2023-10-14 08:40] LABS: Glucose Point of Care 190 mg/dl (65-105)
[2023-10-14 08:46] LABS: Basophils Percent Auto 0.6 % (0.2-1.2); Eosinophils Absolute Auto 0.1 K/mm3 (0-0.3); Hematocrit 32.1 % (37.0-47.0); Hemoglobin 9.6 g/dL (12.0-15.0); Immature Granulocyte Absolute 0.02 K/mm3 (0.00-0.031); Immature Granulocyte Percent A 0.4 % (0-0.5); Lymphocytes Absolute Auto 0.89 K/mm3 (0.9-3.2); Lymphocytes Percent Auto 17.9 % (18.3-44.2); Mean Corpuscular HGB Conc 29.9 g/dl (32-36); Mean Corpuscular Hemoglobin 24.7 pg (26-34); Mean Corpuscular Volume 82.5 fl (80-100); Monocytes Absolute Auto 0.6 K/mm3 (0.1-0.6); Monocytes Percent Auto 12.1 % (2.6-8.5); Neutrophils Absolute Auto 3.3 K/mm3 (1.3-6.7); Platelet Count Result 321 k/mm3 (150-375); Red Blood Count 3.89 M/mm3 (4.2-5.4); Red Cell Distribution Width 14.5 % (11.5-14.5)
[2023-10-14 08:55] LABS: Anion Gap 7 mmol/L (8-16); Blood Urea Nitrogen 7 mg/dL (7-17); Calcium 8.4 mg/dL (8.4-10.2); Carbon Dioxide 20 mmol/L (22-30); Chloride 108 mmol/L (98-107); Estimated Glomerular Filt Rate > 60; Glucose 181 mg/dL (65-110); Potassium 3.3 mmol/L (3.4-5.0); Sodium 135 mmol/L (137-145)
[2023-10-14 09:14] LABS: Anisocytosis 1+ (NORMAL); Hypochromasia 1+ (NORMAL); Platelet Estimate Adequate (Adequate); Schistocytes None Seen (NORMAL)
[2023-10-14] MEDS: METOPROLOL TARTRATE 50 MG TAB PO ×2 (09:48→17:18)
[2023-10-14] MEDS: SODIUM BICARBONATE TAB 650 MG TABLET PO ×3 (09:48→17:18)
[2023-10-14] MEDS: FLUoxetine HCL 20 MG CAPSULE 40 MG PO (09:48)
[2023-10-14] MEDS: methiMAzole 5 MG TAB PO (09:48)
[2023-10-14] MEDS: CHOLECALCIFEROL 1,000 UNITS TABLET 2000 UNITS PO (09:48)
[2023-10-14] MEDS: PANTOPRAZOLE 40 MG TABLET PO (09:48)
[2023-10-14 12:15] LABS: Glucose Point of Care 220 mg/dl (65-105)
[2023-10-14] MEDS: INSULIN ASPART (*BKC) 100 UNITS/ML SUB-Q (12:23)
[2023-10-14 14:30] VITALS: BP 139/62; PULSE 64; RESP 16; TEMP 36.1; O2SAT 99
[2023-10-14 17:15] LABS: Glucose Point of Care 156 mg/dl (65-105)
[2023-10-14 17:18] VITALS: PULSE 62
[2023-10-14 19:55] LABS: Appearance Urine Turbid (Clear); Bacteria Urine 3+ /hpf; Bilirubin Urine Negative (Negative); Blood Urine 3+ (Negative); Color Urine Yellow (Yellow); Glucose Urine UA 3+ mg/dL (Negative); Granular Casts Urine Present /lpf; Hyaline Casts Urine Present /lpf; Ketones Urine Negative (Negative); Leukocyte Esterase Ur 3+ LEU/UL (NEGATIVE); Need Manual Microscopic Reviewed; Nitrate Urine Negative (Negative); Non Pathogenic Casts >20; Protein Urine 2+ mg/dL (Negative); RBC Urine >100 /hpf (0-2); Red Blood Cell Casts Urine Present /lpf; Specific Grav Ur 1.021 (1.001-1.035); Squamous Epithelial Cell Urine Occasional /hpf (Few); Urobilinogen Urine 0.2 mg/dL (<2.0); WBC Clumps Urine Present /HPF; WBC Urine >100 /hpf (0-3); pH Urine 5.5 (5.0-9.0)
[2023-10-14 20:00] LABS: Add Urine Microscopic? YES
[2023-10-14] MEDS: INSULIN GLARGINE (*BKC) 100 UNITS/ML 55 UNITS SUB-Q (20:13)
[2023-10-14] MEDS: ATORVASTATIN 10 MG TABLET PO (20:17)
[2023-10-14] MEDS: QUEtiapine FUMARATE 12.5 MG TABLET PO (20:17)
[2023-10-14] MEDS: MICONAZOLE NITRATE 2% CREAM 30 GM TUBE 1 APPLIC TOPICAL (20:18)
[2023-10-14 20:26] VITALS: BP 150/60; PULSE 72; RESP 16; TEMP 36.6; O2SAT 100
[2023-10-14 21:01] LABS: Glucose Point of Care 190 mg/dl (65-105)
[2023-10-15] MEDS: HYDROcodone/acetaminophen (*CRX) 5-325 MG TABLET 1 TAB PO ×5 (01:05→21:13)
[2023-10-15] MEDS: PIPERACILLN/TAZ 3.375GM/NS50ML 3.375 GM/50 ML BAG IVPB ×3 (02:09→14:08)
[2023-10-15] MEDS: ACETAMINOPHEN 325 MG TABLET 650 MG PO (04:22)
[2023-10-15 04:54] VITALS: BP 123/67; PULSE 73; RESP 16; TEMP 36.4; O2SAT 100
[2023-10-15 07:45] LABS: Basophils Percent Auto 0.2 % (0.2-1.2); Eosinophils Absolute Auto 0.1 K/mm3 (0-0.3); Eosinophils Percent Auto 1.9 % (0-4.4); Hemoglobin 9.9 g/dL (12.0-15.0); Immature Granulocyte Absolute 0.04 K/mm3 (0.00-0.031); Immature Granulocyte Percent A 0.6 % (0-0.5); Lymphocytes Absolute Auto 1.06 K/mm3 (0.9-3.2); Lymphocytes Percent Auto 17.1 % (18.3-44.2); Mean Corpuscular HGB Conc 30.9 g/dl (32-36); Mean Corpuscular Hemoglobin 24.9 pg (26-34); Mean Corpuscular Volume 80.4 fl (80-100); Mean Platelet Volume 7.7 fl (7.4-10.4); Monocytes Absolute Auto 0.5 K/mm3 (0.1-0.6); Monocytes Percent Auto 7.9 % (2.6-8.5); Neutrophils Absolute Auto 4.5 K/mm3 (1.3-6.7); Neutrophils Percent Auto 72.3 % (45.5-73.1); Platelet Count Result 346 k/mm3 (150-375); Red Blood Count 3.98 M/mm3 (4.2-5.4); Red Cell Distribution Width 14.2 % (11.5-14.5); White Blood Count 6.2 K/mm3 (4.5-10.0)
[2023-10-15 07:55] LABS: Anion Gap 6 mmol/L (8-16); Blood Urea Nitrogen 4 mg/dL (7-17); Calcium 8.4 mg/dL (8.4-10.2); Carbon Dioxide 23 mmol/L (22-30); Chloride 106 mmol/L (98-107); Estimated Glomerular Filt Rate > 60; Glucose 185 mg/dL (65-110); Potassium 3.3 mmol/L (3.4-5.0); Sodium 135 mmol/L (137-145)
--- NOTE | 2023-10-15 08:22 | PM.IMPN ---
Progress Note: A&P Assessment and Plan (1) Acute pyelitis: Code(s): N10 - Acute pyelonephritis Status: Acute (2) GI bleed: Qualifiers: GI bleed type/associated pathology: unspecified gastrointestinal hemorrhage type Qualified Code(s): K92.2 - Gastrointestinal hemorrhage, unspecified Code(s): K92.2 - Gastrointestinal hemorrhage, unspecified Status: Acute (3) TONNY (acute kidney injury): Code(s): N17.9 - Acute kidney failure, unspecified Status: Acute (4) Ileostomy in place: Code(s): Z93.2 - Ileostomy status Status: Acute (5) Acute hyperkalemia: Code(s): E87.5 - Hyperkalemia Status: Acute (6) Gross hematuria: Code(s): R31.0 - Gross hematuria Status: Acute Plan This is a 68-year-old female with past medical history significant for total colectomy secondary to colorectal cancer status post ileostomy this was 4 years ago.? Patient presents to the emergency room due to rectal bleed.? Patient has been her usual state of health up until this point.? Denies any fevers, rigors, chills, nausea, vomiting has had good output in the ostomy.? Preliminary workup was significant for CT of abdomen and pelvis reported as: Cystitis and bilateral pyelitis. Mild left hydronephrosis and hydroureter. 2. Total colectomy and end ileostomy. Acute pyelitis and gross hematuria ?Code(s): N10 - Acute pyelonephritis ?Status:?Acute ?Assessment and Plan: Patient started on Rocephin Await cultures Urine is red in color, patient has gross hematuria Consult urologist for evaluation and treatment Appreciate urologist consultation, urologist considers gross hematuria due to hemorrhagic cystitis, recommend continue antibiotics, and defer any intervention 10/13: Urine culture grows E coli, resistant to ceftriaxone, susceptible to Zosyn. Switch from ceftriaxone to Zosyn IV 10/14 c/w with abx today and repeat UA 10/15: Repeat urinalysis shows pyuria, microscopic hematuria, no gross hematuria, urine is cloudy, will continue Zosyn 3rd day (2) Ileostomy in place: ?Code(s): Z93.2 - Ileostomy status ?Status:?Acute ?Assessment and Plan: Ostomy care Suspected rectal bleeding upon arrival Patient has anemia, hemoglobin 10.9, close to baseline Patient is hemodynamically stable Consulted general surgeon, per general surgeon evaluation, there was no bleeding or any drainage from per healed perineum (3) Gastro-esophageal reflux disease without esophagitis: ?Code(s): K21.9 - Gastro-esophageal reflux disease without esophagitis ?Status:?Acute ?Assessment and Plan: PPI (4) Diabetes mellitus: ?Code(s): E11.9 - Type 2 diabetes mellitus without complications ?Status:?Acute ?Assessment and Plan: Holding sitagliptin Continue insulin (5) Chronic indwelling Alonzo catheter: ?Code(s): Z97.8 - Presence of other specified devices ?Status:?Acute ?Assessment and Plan: Alonzo care (6) TONNY (acute kidney injury) hyponatremia ?Code(s): Gentle IV fluids normal saline 125 mL/hour Kidney function is improving Now resolves Decrease normal saline to 75 mL part today 10/13 10/15 TONNY resloves dc iv fluid today (7) Acute on chronic kidney failure: ?Qualifiers: ?Acute renal failure type:?unspecified??Chronic kidney disease stage:?unspecified stage? Qualified Code(s):?N17.9 - Acute kidney failure, unspecified; N18.9 - Chronic kidney disease, unspecified ?Code(s): N17.9 - Acute kidney failure, unspecified; N18.9 - Chronic kidney disease, unspecified ?Status:?Acute Acute renal failure has resolved, avoid nephrotoxin medication ? Subjective Date/time seen: 10/15/23 08:22 Interval history: I saw and examined patient. Patient feels better today, complaining of suprapubic pain,patient is afebrile, blood pressure stable, repeat urine analysis shows pyuria, microscopic hematuria, yellow
[2023-10-15 08:30] LABS: Glucose Point of Care 183 mg/dl (65-105)
[2023-10-15 08:34] VITALS: PULSE 73
[2023-10-15] MEDS: METOPROLOL TARTRATE 50 MG TAB PO ×2 (08:34→16:21)
[2023-10-15] MEDS: CHOLECALCIFEROL 1,000 UNITS TABLET 2000 UNITS PO (08:35)
[2023-10-15] MEDS: PANTOPRAZOLE 40 MG TABLET PO (08:35)
[2023-10-15] MEDS: SODIUM BICARBONATE TAB 650 MG TABLET PO ×3 (08:35→16:23)
[2023-10-15] MEDS: FLUoxetine HCL 20 MG CAPSULE 40 MG PO (08:35)
[2023-10-15] MEDS: methiMAzole 5 MG TAB PO (08:35)
[2023-10-15] MEDS: MICONAZOLE NITRATE 2% CREAM 30 GM TUBE 1 APPLIC TOPICAL ×2 (08:36→21:15)
[2023-10-15] MEDS: DEXTROSE 5%/0.9% SOD CHL 1,000 ML 75 ML IV CONT (08:36)
[2023-10-15 11:49] LABS: Glucose Point of Care 215 mg/dl (65-105)
[2023-10-15] MEDS: INSULIN ASPART (*BKC) 100 UNITS/ML SUB-Q (12:08)
[2023-10-15 14:00] VITALS: BP 157/62; PULSE 58; RESP 17; TEMP 36; O2SAT 100
[2023-10-15 16:11] LABS: Glucose Point of Care 130 mg/dl (65-105)
[2023-10-15 16:21] VITALS: PULSE 70
[2023-10-15] MEDS: ERTAPENEM 1 GM/NS 50 ML 1 GM/50 ML BAG IVPB (16:23)
[2023-10-15] MEDS: QUEtiapine FUMARATE 12.5 MG TABLET PO (21:13)
[2023-10-15] MEDS: ATORVASTATIN 10 MG TABLET PO (21:13)
[2023-10-15] MEDS: ALPRAZolam (*CRX) 0.5 MG TABLET PO (21:13)
[2023-10-15] MEDS: INSULIN GLARGINE (*BKC) 100 UNITS/ML 55 UNITS SUB-Q (21:15)
[2023-10-15 21:37] LABS: Glucose Point of Care 153 mg/dl (65-105)
[2023-10-15 22:00] VITALS: BP 148/61; PULSE 67; RESP 20; TEMP 36.3; O2SAT 100
[2023-10-16] VITALS (7 sets, daily range): BP systolic 133–145; BP diastolic 56–66; PULSE 63–84; RESP 14–20; TEMP 36.2–36.7; O2SAT 99–100
[2023-10-16] MEDS: HYDROcodone/acetaminophen (*CRX) 5-325 MG TABLET 1 TAB PO ×4 (03:59→20:01)
[2023-10-16 05:39] LABS: Basophils Percent Auto 0.4 % (0.2-1.2); Eosinophils Absolute Auto 0.2 K/mm3 (0-0.3); Eosinophils Percent Auto 2.4 % (0-4.4); Hematocrit 33.2 % (37.0-47.0); Hemoglobin 9.9 g/dL (12.0-15.0); Immature Granulocyte Absolute 0.03 K/mm3 (0.00-0.031); Immature Granulocyte Percent A 0.4 % (0-0.5); Lymphocytes Absolute Auto 1.41 K/mm3 (0.9-3.2); Lymphocytes Percent Auto 20.1 % (18.3-44.2); Mean Corpuscular HGB Conc 29.8 g/dl (32-36); Mean Corpuscular Hemoglobin 24.4 pg (26-34); Monocytes Absolute Auto 0.6 K/mm3 (0.1-0.6); Monocytes Percent Auto 9.1 % (2.6-8.5); Neutrophils Absolute Auto 4.7 K/mm3 (1.3-6.7); Neutrophils Percent Auto 67.6 % (45.5-73.1); Platelet Count Result 377 k/mm3 (150-375); Red Blood Count 4.05 M/mm3 (4.2-5.4); Red Cell Distribution Width 14.3 % (11.5-14.5)
[2023-10-16 05:53] LABS: Anion Gap 7 mmol/L (8-16); Blood Urea Nitrogen 6 mg/dL (7-17); Calcium 8.7 mg/dL (8.4-10.2); Carbon Dioxide 24 mmol/L (22-30); Chloride 108 mmol/L (98-107); Estimated Glomerular Filt Rate > 60; Glucose 63 mg/dL (65-110); Potassium 3.2 mmol/L (3.4-5.0); Sodium 139 mmol/L (137-145)
[2023-10-16 07:43] LABS: Glucose Point of Care 55 mg/dl (65-105)
[2023-10-16] MEDS: methiMAzole 5 MG TAB PO (08:13)
[2023-10-16] MEDS: PANTOPRAZOLE 40 MG TABLET PO (08:13)
[2023-10-16] MEDS: CHOLECALCIFEROL 1,000 UNITS TABLET 2000 UNITS PO (08:13)
[2023-10-16] MEDS: METOPROLOL TARTRATE 50 MG TAB PO ×2 (08:14→17:34)
[2023-10-16] MEDS: FLUoxetine HCL 20 MG CAPSULE 40 MG PO (08:14)
[2023-10-16 08:15] LABS: Glucose Point of Care 93 mg/dl (65-105)
[2023-10-16] MEDS: MICONAZOLE NITRATE 2% CREAM 30 GM TUBE 1 APPLIC TOPICAL ×2 (08:15→20:00)
[2023-10-16] MEDS: SODIUM BICARBONATE TAB 650 MG TABLET PO ×3 (08:16→17:34)
--- NOTE | 2023-10-16 10:15 | PCOTNOTE ---
Attempted to see Patient at this time. Patient refused to participate in services, stated I don't want help, I don't like therapy .
[2023-10-16 12:00] LABS: Glucose Point of Care 174 mg/dl (65-105)
[2023-10-16] MEDS: ERTAPENEM 1 GM/NS 50 ML 1 GM/50 ML BAG IVPB (12:21)
--- NOTE | 2023-10-16 13:26 | PM.IMPN ---
Progress Note: A&P Assessment and Plan (1) Acute pyelitis: Code(s): N10 - Acute pyelonephritis Status: Acute (2) GI bleed: Qualifiers: GI bleed type/associated pathology: unspecified gastrointestinal hemorrhage type Qualified Code(s): K92.2 - Gastrointestinal hemorrhage, unspecified Code(s): K92.2 - Gastrointestinal hemorrhage, unspecified Status: Acute (3) TONNY (acute kidney injury): Code(s): N17.9 - Acute kidney failure, unspecified Status: Acute (4) Ileostomy in place: Code(s): Z93.2 - Ileostomy status Status: Acute (5) Acute hyperkalemia: Code(s): E87.5 - Hyperkalemia Status: Acute (6) Gross hematuria: Code(s): R31.0 - Gross hematuria Status: Acute Plan This is a 68-year-old female with past medical history significant for total colectomy secondary to colorectal cancer status post ileostomy this was 4 years ago.? Patient presents to the emergency room due to rectal bleed.? Patient has been her usual state of health up until this point.? Denies any fevers, rigors, chills, nausea, vomiting has had good output in the ostomy.? Preliminary workup was significant for CT of abdomen and pelvis reported as: Cystitis and bilateral pyelitis. Mild left hydronephrosis and hydroureter. 2. Total colectomy and end ileostomy. Acute pyelitis and gross hematuria ?Code(s): N10 - Acute pyelonephritis ?Status:?Acute ?Assessment and Plan: Patient started on Rocephin Await cultures Urine is red in color, patient has gross hematuria Consult urologist for evaluation and treatment Appreciate urologist consultation, urologist considers gross hematuria due to hemorrhagic cystitis, recommend continue antibiotics, and defer any intervention 10/13: Urine culture grows E coli, resistant to ceftriaxone, susceptible to Zosyn. Switch from ceftriaxone to Zosyn IV 10/14 c/w with abx today and repeat UA 10/15: Repeat urinalysis shows pyuria, microscopic hematuria, no gross hematuria, urine is cloudy, will continue Zosyn 3rd day 10/16: UC shows ECOli -Pt on ertapenem IV dc in 1-2 days time (2) Ileostomy in place: ?Code(s): Z93.2 - Ileostomy status ?Status:?Acute ?Assessment and Plan: Ostomy care Suspected rectal bleeding upon arrival Consulted general surgeon, per general surgeon evaluation, state no bleeding or any drainage from per healed perineum (3) Gastro-esophageal reflux disease without esophagitis: ?Code(s): K21.9 - Gastro-esophageal reflux disease without esophagitis ?Status:?Acute ?Assessment and Plan: PPI (4) Diabetes mellitus: ?Code(s): E11.9 - Type 2 diabetes mellitus without complications ?Status:?Acute ?Assessment and Plan: Holding sitagliptin Continue insulin (5) Chronic indwelling Alonzo catheter: ?Code(s): Z97.8 - Presence of other specified devices ?Status:?Acute ?Assessment and Plan: Alonzo care (6) TONNY (acute kidney injury) hyponatremia ?Code(s): Gentle IV fluids normal saline 125 mL/hour Kidney function is improving Now resolves Decrease normal saline to 75 mL part today 10/13 10/15: TONNY resolved dc iv fluid today 10/16: creat is stable (7) Acute on chronic kidney failure: ?Qualifiers: ?Acute renal failure type:?unspecified??Chronic kidney disease stage:?unspecified stage? Qualified Code(s):?N17.9 - Acute kidney failure, unspecified; N18.9 - Chronic kidney disease, unspecified ?Code(s): N17.9 - Acute kidney failure, unspecified; N18.9 - Chronic kidney disease, unspecified ?Status:?Acute Acute renal failure has resolved, avoid nephrotoxin medication ? Subjective Date/time seen: 10/16/23 13:26 Interval history: 68-year-old female with past medical history significant for total colectomy secondary to colorectal cancer status post ileostomy this was 4 years ago.? Patient presents to the emergency room due to rec
[2023-10-16 17:06] LABS: Glucose Point of Care 235 mg/dl (65-105)
[2023-10-16] MEDS: INSULIN ASPART (*BKC) 100 UNITS/ML SUB-Q (17:35)
[2023-10-16] MEDS: QUEtiapine FUMARATE 12.5 MG TABLET PO (20:01)
[2023-10-16] MEDS: ALPRAZolam (*CRX) 0.5 MG TABLET PO (20:01)
[2023-10-16] MEDS: ATORVASTATIN 10 MG TABLET PO (20:01)
[2023-10-16] MEDS: INSULIN GLARGINE (*BKC) 100 UNITS/ML 55 UNITS SUB-Q (20:51)
[2023-10-16 21:26] LABS: Glucose Point of Care 201 mg/dl (65-105)
[2023-10-17] VITALS (8 sets, daily range): BP systolic 127–149; BP diastolic 55–60; PULSE 63–81; RESP 14–18; TEMP 36.2–36.6; O2SAT 96–100
[2023-10-17] MEDS: HYDROcodone/acetaminophen (*CRX) 5-325 MG TABLET 1 TAB PO ×3 (06:49→20:07)
[2023-10-17 08:13] LABS: Glucose Point of Care 47 mg/dl (65-105)
[2023-10-17] MEDS: GLUCOSE ORAL GEL 15 GM OF GLUCSE IN 37.5 GM TUBE PO (08:16)
[2023-10-17 08:52] LABS: Glucose Point of Care 98 mg/dl (65-105)
[2023-10-17] MEDS: FLUoxetine HCL 20 MG CAPSULE 40 MG PO (08:59)
[2023-10-17] MEDS: methiMAzole 5 MG TAB PO (08:59)
[2023-10-17] MEDS: SODIUM BICARBONATE TAB 650 MG TABLET PO ×3 (09:00→17:30)
[2023-10-17] MEDS: CHOLECALCIFEROL 1,000 UNITS TABLET 2000 UNITS PO (09:00)
[2023-10-17] MEDS: METOPROLOL TARTRATE 50 MG TAB PO ×2 (09:00→17:30)
[2023-10-17] MEDS: PANTOPRAZOLE 40 MG TABLET PO (09:00)
[2023-10-17] MEDS: MICONAZOLE NITRATE 2% CREAM 30 GM TUBE 1 APPLIC TOPICAL ×2 (09:01→21:34)
--- NOTE | 2023-10-17 11:16 | PCNFU ---
Nutrition Follow-Up Complete: Unintended weight loss as related to confusion as evidenced by weight loss of 12 ibs in 4 months (9%). Goal: Adequate Intake if at least 75% of meals/supplements patient is progressing towards goal. We will continue current goal. Pt current nutrition is DBCC/Low Fiber. Last recorded weight is 56.2 kg. Bowel Motility:ostomy Labs Reviewed: GFR 55, BUN 28, Glu 265, Na 134 Meds Noted:Lantus, Lipitor, Vit D, Invanz, Prozac, Lopressor Skin:WNL Additional Notes: Patient remains on a DBCC/Low Fiber diet. Tolerating well, 50-75% of meals. Diet supplements of Ensure compact being send BID for additional 220 kcals and 9 gms protein. Agree with diet orders. RD will monitor weight, labs, skin, oral intake, meds every 7 days.
[2023-10-17 12:35] LABS: Glucose Point of Care 185 mg/dl (65-105)
[2023-10-17] MEDS: ERTAPENEM 1 GM/NS 50 ML 1 GM/50 ML BAG IVPB (13:03)
--- NOTE | 2023-10-17 14:44 | PM.IMPN ---
Progress Note: A&P Assessment and Plan (1) Acute pyelitis: Code(s): N10 - Acute pyelonephritis Status: Acute (2) GI bleed: Qualifiers: GI bleed type/associated pathology: unspecified gastrointestinal hemorrhage type Qualified Code(s): K92.2 - Gastrointestinal hemorrhage, unspecified Code(s): K92.2 - Gastrointestinal hemorrhage, unspecified Status: Acute (3) TONNY (acute kidney injury): Code(s): N17.9 - Acute kidney failure, unspecified Status: Acute (4) Ileostomy in place: Code(s): Z93.2 - Ileostomy status Status: Acute (5) Acute hyperkalemia: Code(s): E87.5 - Hyperkalemia Status: Acute (6) Gross hematuria: Code(s): R31.0 - Gross hematuria Status: Acute Plan This is a 68-year-old female with past medical history significant for total colectomy secondary to colorectal cancer status post ileostomy this was 4 years ago.? Patient presents to the emergency room due to rectal bleed.? Patient has been her usual state of health up until this point.? Denies any fevers, rigors, chills, nausea, vomiting has had good output in the ostomy.? Preliminary workup was significant for CT of abdomen and pelvis reported as: Cystitis and bilateral pyelitis. Mild left hydronephrosis and hydroureter. 2. Total colectomy and end ileostomy. Acute pyelitis and gross hematuria ?Code(s): N10 - Acute pyelonephritis ?Status:?Acute ?Assessment and Plan: Patient started on Rocephin Await cultures Urine is red in color, patient has gross hematuria Consult urologist for evaluation and treatment Appreciate urologist consultation, urologist considers gross hematuria due to hemorrhagic cystitis, recommend continue antibiotics, and defer any intervention 10/13: Urine culture grows E coli, resistant to ceftriaxone, susceptible to Zosyn. Switch from ceftriaxone to Zosyn IV 10/14 c/w with abx today and repeat UA 10/15: Repeat urinalysis shows pyuria, microscopic hematuria, no gross hematuria, urine is cloudy, will continue Zosyn 3rd day 10/16: UC shows ECOli -Pt on ertapenem IV 10/17:pt to have gentamicin and dc tomorrow (2) Ileostomy in place: ?Code(s): Z93.2 - Ileostomy status ?Status:?Acute ?Assessment and Plan: Ostomy care Suspected rectal bleeding upon arrival Consulted general surgeon, per general surgeon evaluation, state no bleeding or any drainage from per healed perineum (3) Gastro-esophageal reflux disease without esophagitis: ?Code(s): K21.9 - Gastro-esophageal reflux disease without esophagitis ?Status:?Acute ?Assessment and Plan: PPI (4) Diabetes mellitus: ?Code(s): E11.9 - Type 2 diabetes mellitus without complications ?Status:?Acute ?Assessment and Plan: Holding sitagliptin Continue insulin decrease lantus dose (5) Chronic indwelling Alonzo catheter: ?Code(s): Z97.8 - Presence of other specified devices ?Status:?Acute ?Assessment and Plan: Alonzo care (6) TONNY (acute kidney injury) hyponatremia ?Code(s): Gentle IV fluids normal saline 125 mL/hour Kidney function is improving Now resolves Decrease normal saline to 75 mL part today 10/13 10/15: TONNY resolved dc iv fluid today 10/16: creat is stable (7) Acute on chronic kidney failure: ?Qualifiers: ?Acute renal failure type:?unspecified??Chronic kidney disease stage:?unspecified stage? Qualified Code(s):?N17.9 - Acute kidney failure, unspecified; N18.9 - Chronic kidney disease, unspecified ?Code(s): N17.9 - Acute kidney failure, unspecified; N18.9 - Chronic kidney disease, unspecified ?Status:?Acute Acute renal failure has resolved, avoid nephrotoxin medication ? Subjective Date/time seen: 10/17/23 14:44 Interval history: 68-year-old female with past medical history significant for total colectomy secondary to colorectal cancer status post ileostomy this was 4 years ago.? Pat
[2023-10-17 17:19] LABS: Glucose Point of Care 211 mg/dl (65-105)
[2023-10-17] MEDS: INSULIN ASPART (*BKC) 100 UNITS/ML SUB-Q (17:30)
[2023-10-17] MEDS: ATORVASTATIN 10 MG TABLET PO (21:33)
[2023-10-17] MEDS: ALPRAZolam (*CRX) 0.5 MG TABLET PO (21:33)
[2023-10-17] MEDS: QUEtiapine FUMARATE 12.5 MG TABLET PO (21:33)
[2023-10-17] MEDS: INSULIN GLARGINE (*BKC) 100 UNITS/ML 40 UNITS SUB-Q (21:37)
[2023-10-17 21:43] LABS: Glucose Point of Care 227 mg/dl (65-105)
[2023-10-18 06:00] VITALS: BP 145/71; PULSE 62; RESP 14; TEMP 36.6; O2SAT 98
[2023-10-18 06:18] LABS: Anion Gap 6 mmol/L (8-16); Blood Urea Nitrogen 18 mg/dL (7-17); Calcium 9.4 mg/dL (8.4-10.2); Carbon Dioxide 28 mmol/L (22-30); Chloride 105 mmol/L (98-107); Estimated Glomerular Filt Rate 55; Glucose 99 mg/dL (65-110); Sodium 139 mmol/L (137-145)
[2023-10-18 08:10] LABS: Glucose Point of Care 52 mg/dl (65-105)
[2023-10-18 08:49] LABS: Glucose Point of Care 84 mg/dl (65-105)
[2023-10-18 08:59] VITALS: BP 148/70; PULSE 67; O2SAT 100
[2023-10-18 09:00] VITALS: PULSE 67
[2023-10-18] MEDS: FLUoxetine HCL 20 MG CAPSULE 40 MG PO (09:00)
[2023-10-18] MEDS: METOPROLOL TARTRATE 50 MG TAB PO ×2 (09:00→17:46)
[2023-10-18] MEDS: methiMAzole 5 MG TAB PO (09:00)
[2023-10-18] MEDS: SODIUM BICARBONATE TAB 650 MG TABLET PO ×3 (09:00→17:46)
[2023-10-18] MEDS: CHOLECALCIFEROL 1,000 UNITS TABLET 2000 UNITS PO (09:00)
[2023-10-18] MEDS: MICONAZOLE NITRATE 2% CREAM 30 GM TUBE 1 APPLIC TOPICAL ×2 (09:01→23:19)
[2023-10-18] MEDS: PANTOPRAZOLE 40 MG TABLET PO (09:01)
[2023-10-18] MEDS: POTASSIUM CHLORIDE 20 MEQ PACKET (FOR LIQUID) 40 MEQ PO (09:09)
[2023-10-18] MEDS: HYDROcodone/acetaminophen (*CRX) 5-325 MG TABLET 1 TAB PO ×2 (11:47→17:49)
[2023-10-18 12:04] LABS: Glucose Point of Care 204 mg/dl (65-105)
--- NOTE | 2023-10-18 12:49 | PM.IMPN ---
Progress Note: A&P Assessment and Plan (1) Acute pyelitis: Code(s): N10 - Acute pyelonephritis Status: Acute (2) GI bleed: Qualifiers: GI bleed type/associated pathology: unspecified gastrointestinal hemorrhage type Qualified Code(s): K92.2 - Gastrointestinal hemorrhage, unspecified Code(s): K92.2 - Gastrointestinal hemorrhage, unspecified Status: Acute (3) TONNY (acute kidney injury): Code(s): N17.9 - Acute kidney failure, unspecified Status: Acute (4) Ileostomy in place: Code(s): Z93.2 - Ileostomy status Status: Acute (5) Acute hyperkalemia: Code(s): E87.5 - Hyperkalemia Status: Acute (6) Gross hematuria: Code(s): R31.0 - Gross hematuria Status: Acute Plan This is a 68-year-old female with past medical history significant for total colectomy secondary to colorectal cancer status post ileostomy this was 4 years ago.? Patient presents to the emergency room due to rectal bleed.? Patient has been her usual state of health up until this point.? Denies any fevers, rigors, chills, nausea, vomiting has had good output in the ostomy.? Preliminary workup was significant for CT of abdomen and pelvis reported as: Cystitis and bilateral pyelitis. Mild left hydronephrosis and hydroureter. 2. Total colectomy and end ileostomy. Acute pyelitis and gross hematuria ?Code(s): N10 - Acute pyelonephritis ?Status:?Acute ?Assessment and Plan: Patient started on Rocephin Await cultures Urine is red in color, patient has gross hematuria Consult urologist for evaluation and treatment Appreciate urologist consultation, urologist considers gross hematuria due to hemorrhagic cystitis, recommend continue antibiotics, and defer any intervention 10/13: Urine culture grows E coli, resistant to ceftriaxone, susceptible to Zosyn. Switch from ceftriaxone to Zosyn IV 10/14 c/w with abx today and repeat UA 10/15: Repeat urinalysis shows pyuria, microscopic hematuria, no gross hematuria, urine is cloudy, will continue Zosyn 3rd day 10/16: UC shows ECOli -Pt on ertapenem IV 10/17:pt to have gentamicin and dc tomorrow 10/18: pt has completed her IV abx for her UTI, unfortunately pt having morning hypoglycemia cut back lantus to 30 units and hopefully DC [facility] back to SNF (2) Ileostomy in place: ?Code(s): Z93.2 - Ileostomy status ?Status:?Acute ?Assessment and Plan: Ostomy care Suspected rectal bleeding upon arrival Consulted general surgeon, per general surgeon evaluation, state no bleeding or any drainage from per healed perineum (3) Gastro-esophageal reflux disease without esophagitis: ?Code(s): K21.9 - Gastro-esophageal reflux disease without esophagitis ?Status:?Acute ?Assessment and Plan: PPI (4) Diabetes mellitus: ?Code(s): E11.9 - Type 2 diabetes mellitus without complications ?Status:?Acute ?Assessment and Plan: Holding sitagliptin Continue insulin decrease lantus dose (5) Chronic indwelling Alonzo catheter: ?Code(s): Z97.8 - Presence of other specified devices ?Status:?Acute ?Assessment and Plan: Alonzo care (6) TONNY (acute kidney injury) hyponatremia ?Code(s): Gentle IV fluids normal saline 125 mL/hour Kidney function is improving Now resolves Decrease normal saline to 75 mL part today 10/13 10/15: TONNY resolved dc iv fluid today 10/16: creat is stable (7) Acute on chronic kidney failure: ?Qualifiers: ?Acute renal failure type:?unspecified??Chronic kidney disease stage:?unspecified stage? Qualified Code(s):?N17.9 - Acute kidney failure, unspecified; N18.9 - Chronic kidney disease, unspecified ?Code(s): N17.9 - Acute kidney failure, unspecified; N18.9 - Chronic kidney disease, unspecified ?Status:?Acute Acute renal failure has resolved, avoid nephrotoxin medication ? Subjective Date/time seen: 10/18/23 12:49 Interval history: 6
[2023-10-18] MEDS: INSULIN ASPART (*BKC) 100 UNITS/ML SUB-Q (13:26)
[2023-10-18 14:00] VITALS: BP 140/86; PULSE 63; RESP 15; TEMP 36.5; O2SAT 98
--- NOTE | 2023-10-18 15:15 | PCOTNOTE ---
Attempted to see Patient for OT treatment session this session. Per RN, Patient having an emotional day and has been declining services. Patient refused to participate in therapy services this P.M. and stated, not going to help, I don't like it, and my bag is leaking nurse going to change it.
[2023-10-18 17:33] LABS: Glucose Point of Care 141 mg/dl (65-105)
[2023-10-18 17:46] VITALS: PULSE 65
[2023-10-18] MEDS: AMOXICILLIN/CLAVULANATE K 500-125 MG TAB 1 TABLET PO (17:47)
[2023-10-18 20:08] LABS: Glucose Point of Care 174 mg/dl (65-105)
[2023-10-18] MEDS: INSULIN GLARGINE (*BKC) 100 UNITS/ML 30 UNITS SUB-Q (20:41)
[2023-10-18] MEDS: ALPRAZolam (*CRX) 0.5 MG TABLET PO (20:42)
[2023-10-18] MEDS: QUEtiapine FUMARATE 12.5 MG TABLET PO (20:42)
[2023-10-18] MEDS: ATORVASTATIN 10 MG TABLET PO (20:42)
[2023-10-19 06:00] VITALS: BP 152/58; PULSE 65; RESP 14; TEMP 36.7; O2SAT 98
[2023-10-19] MEDS: HYDROcodone/acetaminophen (*CRX) 5-325 MG TABLET 1 TAB PO ×3 (07:20→20:30)
[2023-10-19 07:41] LABS: Glucose Point of Care 137 mg/dl (65-105)
[2023-10-19 08:24] VITALS: PULSE 72
[2023-10-19] MEDS: CHOLECALCIFEROL 1,000 UNITS TABLET 2000 UNITS PO (08:24)
[2023-10-19] MEDS: METOPROLOL TARTRATE 50 MG TAB PO ×2 (08:24→17:10)
[2023-10-19] MEDS: SODIUM BICARBONATE TAB 650 MG TABLET PO ×3 (08:24→17:10)
[2023-10-19] MEDS: AMOXICILLIN/CLAVULANATE K 500-125 MG TAB 1 TABLET PO (08:24)
[2023-10-19] MEDS: methiMAzole 5 MG TAB PO (08:24)
[2023-10-19] MEDS: PANTOPRAZOLE 40 MG TABLET PO (08:24)
[2023-10-19] MEDS: FLUoxetine HCL 20 MG CAPSULE 40 MG PO (08:24)
[2023-10-19] MEDS: MICONAZOLE NITRATE 2% CREAM 30 GM TUBE 1 APPLIC TOPICAL ×2 (08:25→20:26)
--- NOTE | 2023-10-19 08:48 | PM.IMPN ---
Progress Note: A&P Assessment and Plan (1) Acute pyelitis: Code(s): N10 - Acute pyelonephritis Status: Acute (2) GI bleed: Qualifiers: GI bleed type/associated pathology: unspecified gastrointestinal hemorrhage type Qualified Code(s): K92.2 - Gastrointestinal hemorrhage, unspecified Code(s): K92.2 - Gastrointestinal hemorrhage, unspecified Status: Acute (3) TONNY (acute kidney injury): Code(s): N17.9 - Acute kidney failure, unspecified Status: Acute (4) Ileostomy in place: Code(s): Z93.2 - Ileostomy status Status: Acute (5) Acute hyperkalemia: Code(s): E87.5 - Hyperkalemia Status: Acute (6) Gross hematuria: Code(s): R31.0 - Gross hematuria Status: Acute Plan This is a 68-year-old female with past medical history significant for total colectomy secondary to colorectal cancer status post ileostomy this was 4 years ago.? Patient presents to the emergency room due to rectal bleed.? Patient has been her usual state of health up until this point.? Denies any fevers, rigors, chills, nausea, vomiting has had good output in the ostomy.? Preliminary workup was significant for CT of abdomen and pelvis reported as: Cystitis and bilateral pyelitis. Mild left hydronephrosis and hydroureter. 2. Total colectomy and end ileostomy. UTI with pyelonephritis. Patient with gross hematuria. Urology consulted hemorrhagic cystitis. Urine culture grew E coli resistant to ceftriaxone patient ertapenem gentamicin given. Will resume her dependent for 3 more days to complete the course Suspected rectal bleeding upon arrival consulted General surgery per General surgery evaluation no bleeding or any drainage from PE or perineum GERD Type 2 diabetes on insulin Chronic indwelling Alonzo catheter TONNY resolved with IV hydration DVT prophylaxis SCDs Subjective Date/time seen: 10/19/23 08:48 Interval history: 68-year-old female with past medical history significant for total colectomy secondary to colorectal cancer status post ileostomy 4 years ago.? Patient presents to the emergency room due to rectal bleed. Preliminary workup was significant for CT of abdomen and pelvis reported as:?Cystitis and bilateral pyelitis. Mild left hydronephrosis and hydroureter. 2. Total colectomy and end ileostomy Patient treated for pyelonephritis. Urine culture grew E coli greater than 100,000 CFU ESBL Review of Systems Review of Systems: All systems reviewed & are unremarkable except as noted in HPI and below Exam Narrative: GENERAL: Pleasant, in no acute distress. Well-nourished. - EYES: EOMI. Anicteric. - HENT: Moist mucous membranes. - LUNGS: Clear to auscultation bilaterally, no wheezing, rhonchi, or rales. - CARDIOVASCULAR: Regular rate and rhythm. No murmur. No JVD. - ABDOMEN: Soft, non-tender and non-distended. No palpable masses. Colostomy in-situ - EXTREMITIES: No edema. Peripheral pulses 2+. Non-tender. - NEUROLOGIC: No focal neurological deficits. CN II-XII grossly intact. General weakness, moving all extremities - PSYCHIATRIC: Awake, not oriented x 3. Appropriate mood and affect. - SKIN: No rashes or lesions. Warm. - LYMPH: No cervical lymphadenopathy. Objective Data Vital Signs Vital Signs: Vital Signs - 24 hr 10/18/23 08:59 10/18/23 09:00 10/18/23 09:00 Temperature Pulse Rate 67 67 Respiratory Rate Blood Pressure 148/70 H Pulse Oximetry 100 Oxygen Delivery Room Air 10/18/23 14:00 10/18/23 17:46 10/19/23 06:00 Temperature 97.7 F 98.1 F Pulse Rate 63 65 65 Respiratory Rate 15 14 Blood Pressure 140/86 152/58 H Pulse Oximetry 98 98 Oxygen Delivery 10/19/23 08:24 Temperature Pulse Rate 72 Respiratory Rate Blood Pressure Pulse Oximetry Oxygen Delivery Intake/Output Intake/Output: Intake & Output 10/16/23 10/17/23 10/18/23 10/19/23 23:59 23:59 23:59 23:59 Intake Total 1123 174 0441 118 Output Total 250
[2023-10-19] MEDS: ERTAPENEM 1 GM/NS 50 ML 1 GM/50 ML BAG IVPB (12:31)
[2023-10-19 12:35] LABS: Glucose Point of Care 284 mg/dl (65-105)
[2023-10-19] MEDS: INSULIN ASPART (*BKC) 100 UNITS/ML SUB-Q ×2 (12:36→17:11)
--- NOTE | 2023-10-19 13:52 | PCPTNOTE ---
Attempted to see patient for PT, however patient refused. Patient just got back to bed with nursing prior to PT.
[2023-10-19 14:00] VITALS: BP 120/54; PULSE 64; RESP 15; TEMP 37.1; O2SAT 98
[2023-10-19 17:10] VITALS: PULSE 64
[2023-10-19 17:10] LABS: Glucose Point of Care 236 mg/dl (65-105)
[2023-10-19 19:38] VITALS: BP 129/57; PULSE 66; RESP 16; TEMP 37; O2SAT 99
[2023-10-19] MEDS: ATORVASTATIN 10 MG TABLET PO (20:26)
[2023-10-19] MEDS: ALPRAZolam (*CRX) 0.5 MG TABLET PO (20:26)
[2023-10-19] MEDS: QUEtiapine FUMARATE 12.5 MG TABLET PO (20:26)
[2023-10-19] MEDS: INSULIN GLARGINE (*BKC) 100 UNITS/ML 30 UNITS SUB-Q (20:26)
[2023-10-19 20:56] LABS: Glucose Point of Care 257 mg/dl (65-105)
[2023-10-20 04:50] VITALS: BP 129/56; PULSE 64; RESP 16; TEMP 36.9; O2SAT 99
[2023-10-20 05:16] LABS: Basophils Absolute Auto 0.1 K/mm3 (0.0-0.1); Basophils Percent Auto 0.8 % (0.2-1.2); Eosinophils Absolute Auto 0.3 K/mm3 (0-0.3); Hematocrit 35.7 % (37.0-47.0); Hemoglobin 10.9 g/dL (12.0-15.0); Immature Granulocyte Absolute 0.03 K/mm3 (0.00-0.031); Immature Granulocyte Percent A 0.4 % (0-0.5); Lymphocytes Absolute Auto 1.55 K/mm3 (0.9-3.2); Lymphocytes Percent Auto 19.4 % (18.3-44.2); Mean Corpuscular HGB Conc 30.5 g/dl (32-36); Mean Corpuscular Volume 81.9 fl (80-100); Monocytes Absolute Auto 0.9 K/mm3 (0.1-0.6); Monocytes Percent Auto 11.1 % (2.6-8.5); Neutrophils Absolute Auto 5.1 K/mm3 (1.3-6.7); Neutrophils Percent Auto 64.3 % (45.5-73.1); Platelet Count Result 421 k/mm3 (150-375); Red Blood Count 4.36 M/mm3 (4.2-5.4); Red Cell Distribution Width 14.6 % (11.5-14.5)
[2023-10-20 06:17] LABS: Alanine Aminotransferase 14 U/L (6-35); Albumin Level 3.5 g/dL (3.5-5.1); Alkaline Phosphatase 118 U/L (38-126); Anion Gap 6 mmol/L (8-16); Aspartate Amino Transferase 21 U/L (14-36); Bilirubin,Total 0.2 mg/dL (0.2-1.3); Blood Urea Nitrogen 32 mg/dL (7-17); Calcium 9.1 mg/dL (8.4-10.2); Carbon Dioxide 27 mmol/L (22-30); Chloride 100 mmol/L (98-107); Estimated Glomerular Filt Rate 45; Glucose 252 mg/dL (65-110); Potassium 5.5 mmol/L (3.4-5.0); Sodium 133 mmol/L (137-145)
[2023-10-20 08:20] LABS: Glucose Point of Care 214 mg/dl (65-105)
[2023-10-20] MEDS: ERTAPENEM 1 GM/NS 50 ML 1 GM/50 ML BAG IVPB (09:10)
[2023-10-20] MEDS: MICONAZOLE NITRATE 2% CREAM 30 GM TUBE 1 APPLIC TOPICAL ×2 (09:11→20:42)
[2023-10-20] MEDS: OLOPATADINE 0.1% OPHTH SOLN 5 ML BTL 1 DROP EACH EYE (09:11)
[2023-10-20] MEDS: SODIUM ZIRCONIUM CYCLOSILICATE 10 GM POWD.PACK PO (09:11)
[2023-10-20] MEDS: INSULIN ASPART (*BKC) 100 UNITS/ML SUB-Q ×3 (09:17→17:20)
[2023-10-20] MEDS: CHOLECALCIFEROL 1,000 UNITS TABLET 2000 UNITS PO (11:32)
[2023-10-20] MEDS: methiMAzole 5 MG TAB PO (11:32)
[2023-10-20] MEDS: PANTOPRAZOLE 40 MG TABLET PO (11:32)
[2023-10-20] MEDS: FLUoxetine HCL 20 MG CAPSULE 40 MG PO (11:32)
[2023-10-20 11:33] VITALS: PULSE 66
[2023-10-20] MEDS: METOPROLOL TARTRATE 50 MG TAB PO ×2 (11:33→17:19)
[2023-10-20 12:12] LABS: Glucose Point of Care 257 mg/dl (65-105)
[2023-10-20] MEDS: SODIUM BICARBONATE TAB 650 MG TABLET PO ×2 (12:39→17:19)
[2023-10-20 14:00] VITALS: PULSE 64; RESP 18; TEMP 36.7; O2SAT 98
--- NOTE | 2023-10-20 14:41 | PM.IMPN ---
Progress Note: A&P Assessment and Plan (1) Acute pyelitis: Code(s): N10 - Acute pyelonephritis Status: Acute (2) GI bleed: Qualifiers: GI bleed type/associated pathology: unspecified gastrointestinal hemorrhage type Qualified Code(s): K92.2 - Gastrointestinal hemorrhage, unspecified Code(s): K92.2 - Gastrointestinal hemorrhage, unspecified Status: Acute (3) TONNY (acute kidney injury): Code(s): N17.9 - Acute kidney failure, unspecified Status: Acute (4) Ileostomy in place: Code(s): Z93.2 - Ileostomy status Status: Acute (5) Acute hyperkalemia: Code(s): E87.5 - Hyperkalemia Status: Acute (6) Gross hematuria: Code(s): R31.0 - Gross hematuria Status: Acute Plan This is a 68-year-old female with past medical history significant for total colectomy secondary to colorectal cancer status post ileostomy this was 4 years ago.? Patient presents to the emergency room due to rectal bleed.? Patient has been her usual state of health up until this point.? Denies any fevers, rigors, chills, nausea, vomiting has had good output in the ostomy.? Preliminary workup was significant for CT of abdomen and pelvis reported as: Cystitis and bilateral pyelitis. Mild left hydronephrosis and hydroureter. 2. Total colectomy and end ileostomy. UTI with pyelonephritis. Patient with gross hematuria. Urology consulted hemorrhagic cystitis. Urine culture grew E coli resistant to ceftriaxone patient ertapenem gentamicin given. Will resume ertapenem for 3 more days to complete the course. This will conclude tomorrow. DC to nursing facility after this Suspected rectal bleeding upon arrival consulted General surgery per General surgery evaluation no bleeding or any drainage from PE or perineum GERD Type 2 diabetes on insulin Chronic indwelling Alonzo catheter TONNY resolved with IV hydration DVT prophylaxis SCDs Subjective Date/time seen: 10/20/23 14:41 Interval history: 68-year-old female with past medical history significant for total colectomy secondary to colorectal cancer status post ileostomy 4 years ago.? Patient presents to the emergency room due to rectal bleed. Preliminary workup was significant for CT of abdomen and pelvis reported as:?Cystitis and bilateral pyelitis. Mild left hydronephrosis and hydroureter. 2. Total colectomy and end ileostomy Patient treated for pyelonephritis. Urine culture grew E coli greater than 100,000 CFU ESBL 10/20/2023 no overnight events. Remains afebrile. Denies any new complaint. Discussed with nursing staff. Review of Systems Review of Systems: All systems reviewed & are unremarkable except as noted in HPI and below Exam Narrative: GENERAL: Pleasant, in no acute distress. Well-nourished. - EYES: EOMI. Anicteric. - HENT: Moist mucous membranes. - LUNGS: Clear to auscultation bilaterally, no wheezing, rhonchi, or rales. - CARDIOVASCULAR: Regular rate and rhythm. No murmur. No JVD. - ABDOMEN: Soft, non-tender and non-distended. No palpable masses. Colostomy in-situ - EXTREMITIES: No edema. Peripheral pulses 2+. Non-tender. - NEUROLOGIC: No focal neurological deficits. CN II-XII grossly intact. General weakness, moving all extremities - PSYCHIATRIC: Awake, not oriented x 3. Appropriate mood and affect. - SKIN: No rashes or lesions. Warm. - LYMPH: No cervical lymphadenopathy. Objective Data Vital Signs Vital Signs: Vital Signs - 24 hr 10/19/23 17:10 10/19/23 19:38 10/19/23 20:30 Temperature 98.6 F Pulse Rate 64 66 Respiratory Rate 16 Blood Pressure 129/57 L Pulse Oximetry 99 Oxygen Delivery Room Air 10/20/23 04:50 10/20/23 11:33 10/20/23 09:08 Temperature 98.4 F Pulse Rate 64 66 Respiratory Rate 16 Blood Pressure 129/56 L Pulse Oximetry 99 Oxygen Delivery Room Air 10/20/23 14:00 Temperature 98.1 F Pulse Rate 64 Respiratory Rate 18 Blood Pressure Pulse Oximetry 98 Oxyg
[2023-10-20 15:10] VITALS: BP 134/62
[2023-10-20] MEDS: HYDROcodone/acetaminophen (*CRX) 5-325 MG TABLET 1 TAB PO ×2 (15:17→20:39)
[2023-10-20 16:59] LABS: Glucose Point of Care 239 mg/dl (65-105)
[2023-10-20 17:19] VITALS: PULSE 65
[2023-10-20 20:20] VITALS: BP 119/50; PULSE 65; RESP 16; TEMP 36.4; O2SAT 99
[2023-10-20] MEDS: INSULIN GLARGINE (*BKC) 100 UNITS/ML 30 UNITS SUB-Q (20:38)
[2023-10-20] MEDS: ATORVASTATIN 10 MG TABLET PO (20:39)
[2023-10-20] MEDS: QUEtiapine FUMARATE 12.5 MG TABLET PO (20:39)
[2023-10-20] MEDS: ALPRAZolam (*CRX) 0.5 MG TABLET PO (20:39)
[2023-10-20 21:04] LABS: Glucose Point of Care 319 mg/dl (65-105)
[2023-10-21 05:37] VITALS: BP 151/55; PULSE 67; RESP 16; TEMP 36.4; O2SAT 100
[2023-10-21 05:48] LABS: Basophils Absolute Auto 0.1 K/mm3 (0.0-0.1); Basophils Percent Auto 0.7 % (0.2-1.2); Eosinophils Absolute Auto 0.4 K/mm3 (0-0.3); Eosinophils Percent Auto 4.1 % (0-4.4); Hematocrit 36.7 % (37.0-47.0); Immature Granulocyte Absolute 0.03 K/mm3 (0.00-0.031); Immature Granulocyte Percent A 0.3 % (0-0.5); Lymphocytes Absolute Auto 1.48 K/mm3 (0.9-3.2); Lymphocytes Percent Auto 16.8 % (18.3-44.2); Mean Corpuscular Hemoglobin 24.7 pg (26-34); Mean Corpuscular Volume 82.3 fl (80-100); Mean Platelet Volume 7.5 fl (7.4-10.4); Monocytes Absolute Auto 0.8 K/mm3 (0.1-0.6); Monocytes Percent Auto 9.3 % (2.6-8.5); Neutrophils Absolute Auto 6.1 K/mm3 (1.3-6.7); Neutrophils Percent Auto 68.8 % (45.5-73.1); Platelet Count Result 410 k/mm3 (150-375); Red Blood Count 4.46 M/mm3 (4.2-5.4); Red Cell Distribution Width 14.7 % (11.5-14.5); White Blood Count 8.8 K/mm3 (4.5-10.0)
[2023-10-21 06:07] LABS: Alanine Aminotransferase 14 U/L (6-35); Albumin Level 3.7 g/dL (3.5-5.1); Alkaline Phosphatase 115 U/L (38-126); Anion Gap 8 mmol/L (8-16); Aspartate Amino Transferase 18 U/L (14-36); Bilirubin,Total 0.2 mg/dL (0.2-1.3); Blood Urea Nitrogen 36 mg/dL (7-17); Calcium 9.4 mg/dL (8.4-10.2); Carbon Dioxide 27 mmol/L (22-30); Chloride 102 mmol/L (98-107); Estimated Glomerular Filt Rate 45; Glucose 177 mg/dL (65-110); Magnesium 2.1 mg/dL (1.6-2.3); Potassium 4.9 mmol/L (3.4-5.0); Sodium 137 mmol/L (137-145)
[2023-10-21] MEDS: HYDROcodone/acetaminophen (*CRX) 5-325 MG TABLET 1 TAB PO (07:00)
[2023-10-21 08:35] LABS: Glucose Point of Care 183 mg/dl (65-105)
[2023-10-21 09:29] VITALS: PULSE 62
[2023-10-21] MEDS: METOPROLOL TARTRATE 50 MG TAB PO (09:29)
[2023-10-21] MEDS: FLUoxetine HCL 20 MG CAPSULE 40 MG PO (09:29)
[2023-10-21] MEDS: PANTOPRAZOLE 40 MG TABLET PO (09:29)
[2023-10-21] MEDS: SODIUM BICARBONATE TAB 650 MG TABLET PO ×2 (09:30→12:12)
[2023-10-21] MEDS: ERTAPENEM 1 GM/NS 50 ML 1 GM/50 ML BAG IVPB (09:30)
[2023-10-21] MEDS: methiMAzole 5 MG TAB PO (09:30)
[2023-10-21] MEDS: CHOLECALCIFEROL 1,000 UNITS TABLET 2000 UNITS PO (09:30)
[2023-10-21 12:05] LABS: Glucose Point of Care 255 mg/dl (65-105)
[2023-10-21 12:10] LABS: SARS-CoV-2 RNA PCR Negative (Negative)
[2023-10-21] MEDS: INSULIN ASPART (*BKC) 100 UNITS/ML SUB-Q (12:12)
--- NOTE | 2023-10-21 13:07 | PM.DS ---
DS: Admitting Diagnosis Discharge Date 10/21/2023 Admitting Diagnosis Rectal bleed DS: Discharge Diagnosis Discharge Diagnosis (1) Acute pyelitis: Code(s): N10 - Acute pyelonephritis Status: Acute (2) GI bleed: Qualifiers: GI bleed type/associated pathology: unspecified gastrointestinal hemorrhage type Qualified Code(s): K92.2 - Gastrointestinal hemorrhage, unspecified Code(s): K92.2 - Gastrointestinal hemorrhage, unspecified Status: Acute (3) TONNY (acute kidney injury): Code(s): N17.9 - Acute kidney failure, unspecified Status: Acute (4) Ileostomy in place: Code(s): Z93.2 - Ileostomy status Status: Acute (5) Acute hyperkalemia: Code(s): E87.5 - Hyperkalemia Status: Acute (6) Gross hematuria: Code(s): R31.0 - Gross hematuria Status: Acute DS: Summary Hospital Course Hospital Course: This is a 68-year-old female with past medical history significant for total colectomy secondary to colorectal cancer status post ileostomy this was 4 years ago.? Patient presents to the emergency room due to rectal bleed.? Patient has been her usual state of health up until this point.? Denies any fevers, rigors, chills, nausea, vomiting has had good output in the ostomy.? Preliminary workup was significant for CT of abdomen and pelvis reported as:?Cystitis and bilateral pyelitis. Mild left hydronephrosis and hydroureter. 2. Total colectomy and end ileostomy. UTI with pyelonephritis.? Patient with gross hematuria.? Urology consulted suggested hemorrhagic cystitis. Follow-up with urology. Urine culture grew E coli resistant to ceftriaxone patient ertapenem gentamicin given.? Completed ertapenem 7 days course Suspected rectal bleeding upon arrival consulted General surgery per General surgery evaluation no bleeding or any drainage from PE or perineum GERD Type 2 diabetes on insulin continue to monitor outpatient follow-up with PCP Chronic indwelling Alonzo catheter TONNY resolved with IV hydration DVT prophylaxis SCDs Time Spent with Patient Time attestation: Total time spent providing and/or coordinating discharge services: 35 minutes Exam Narrative: GENERAL: Pleasant, in no acute distress. Well-nourished. - EYES: EOMI. Anicteric. - HENT: Moist mucous membranes. - LUNGS: Clear to auscultation bilaterally, no wheezing, rhonchi, or rales. - CARDIOVASCULAR: Regular rate and rhythm. No murmur. No JVD. - ABDOMEN: Soft, non-tender and non-distended. No palpable masses. Colostomy in-situ - EXTREMITIES: No edema. Peripheral pulses 2+. Non-tender. - NEUROLOGIC: No focal neurological deficits. CN II-XII grossly intact. General weakness, moving all extremities - PSYCHIATRIC: Awake, not oriented x 3. Appropriate mood and affect. - SKIN: No rashes or lesions. Warm. - LYMPH: No cervical lymphadenopathy. DS: Data Data Completed and Pending Labs on day of discharge: Labs from last 24 hours 10/21/23 10/21/23 10/21/23 11:52 11:26 08:17 WBC RBC Hgb Hct MCV MCH MCHC RDW Plt Count MPV Immature Gran % (Auto) Neut % (Auto) Lymph % (Auto) Davis % (Auto) Eos % (Auto) Baso % (Auto) Lymph # (Auto) Davis # (Auto) Eos # (Auto) Baso # (Auto) Abs Immat Gran (auto) Absolute Neuts (auto) Absolute Nucleated RBC Nucleated RBC % Sodium Potassium Chloride Carbon Dioxide Anion Gap BUN Creatinine Estim Creat Clear Calc Estimated GFR Glucose POC Capillary Glucose 255 H 183 H Calcium Magnesium Total Bilirubin AST ALT Alkaline Phosphatase Total Protein Albumin SARS-CoV-2 RNA (RT-PCR) Negative 10/21/23 10/20/23 10/20/23 05:41 20:34 16:52 WBC 8.8 RBC 4.46 Hgb 11.0 L Hct 36.7 L MCV 82.3 MCH 24.7 L MCHC 30.0 L RDW 14.7 H Plt Count 410 H MPV 7.5 Immature Gran % (Auto) 0.3 Neut % (Au
== END 2023-10-21 14:10 | DRG 690 ==
LOC: ANHED 21:44 → ANH2MED 22:52
PROVIDERS: Emergency Medicine; Family Medicine; Hospitalist; Admitting Provider Internal Medicine; Emergency Provider Student in an Organized Health Care Education/Training Program; Visit Provider Internal Medicine
DX: N10 Acute pyelonephritis (principal); K62.5 Hemorrhage of anus and rectum; Z16.19 Resistance to other specified beta lactam antibiotics; N30.91 Cystitis, unspecified with hematuria; B96.20 Unspecified Escherichia coli [E. coli] as the cause of diseases classified elsewhere; R31.0 Gross hematuria; D63.1 Anemia in chronic kidney disease; E87.5 Hyperkalemia; E11.22 Type 2 diabetes mellitus with diabetic chronic kidney disease; F41.8 Other specified anxiety disorders; F01.50 Vascular dementia, unspecified severity, without behavioral disturbance, psychotic disturbance, mood disturbance, and anxiety; K21.9 Gastro-esophageal reflux disease without esophagitis; N17.9 Acute kidney failure, unspecified; N18.32 Chronic kidney disease, stage 3b; Z66 Do not resuscitate; Z90.49 Acquired absence of other specified parts of digestive tract; Z93.2 Ileostomy status; Z85.038 Personal history of other malignant neoplasm of large intestine; Z79.4 Long term (current) use of insulin; Z87.891 Personal history of nicotine dependence; Z90.710 Acquired absence of both cervix and uterus
CPT/HCPCS: 36415; 74178; 80048; 80053; 81001; 82948; 83735; 85025; 85610; 85730; 86850; 86900; 86901; 87077; 87086; 87088; 87186; 87635; 96361; 96365; 96375; 97110; 97163; 97165; 97530; 99285; A9270; G0378; J0696; J1335; J1580; J1815; J2543; J7030; J7042; Q9967

== ENCOUNTER 2024-04-17 11:16 | Inpatient (IN) | payer MEDICARE, SELFPAY ==
[2024-04-17] VITALS (36 sets, daily range): BP systolic 63–138; BP diastolic 36–60; PULSE 67–96; RESP 10–19; TEMP 35.8–36.8; O2SAT 98–100; BMI 26.3
--- NOTE | ~2024-04-17 | XR_ITS ---
EXAMINATION: XR hand RT 2V, XR finger 5th RT min 2V DATE: 04/18/2024 12:51 INDICATION: Pain, swelling and bruising at the fifth digit of the right hand TECHNIQUE: 1. Posteroanterior, oblique and lateral views of the affected hand were obtained. 2. Posteroanterior, oblique and lateral views of the right fifth digit were obtained. COMPARISON: None. FINDINGS: Diffuse osteopenia throughout the right hand. Nondisplaced likely extra articular fracture at the pro ximal metaphyseal region of the right fifth middle phalanx with 25 degrees dorsal angulation. No othe r fractures identified. Alignment is otherwise normal. Mild polyarticular osteoarthritis at the dista l radioulnar joint, the triscaphe, first carpometacarpal and multiple metacarpophalangeal and interph alangeal joints. Peripheral IV at the wrist. Soft tissue swelling about the fifth digit. IMPRESSION: 1. 35 degrees dorsal inflation of a nondisplaced extra articular fracture near the base of the right fifth middle phalanx. 2. Prominent diffuse osteopenia, potentially frankly osteoporotic. Reviewed, dictated and finalized at location A. IMPRESSION: 1. 35 degrees dorsal inflation of a nondisplaced extra articular fracture near the base of the right fifth middle phalanx. 2. Prominent diffuse osteopenia, potentially frankly osteoporotic.
--- NOTE | ~2024-04-17 | CT_ITS ---
EXAMINATION: CT abdomen pelvis w con DATE: 04/17/2024 13:28 INDICATION: Abdomen pain TECHNIQUE: Computed tomography (CT) of the abdomen and pelvis was performed with 100 cc Omnipaque 350 intravenous contrast. The dose-length product was 270.06 mGy-cm. Automated exposure control and iter ative reconstruction technique were employed. COMPARISON: CT dated 10/10/2023. FINDINGS: There is a right lower abdominal ileostomy. Status post colectomy. There are gallstones. Th ere is diffuse skin thickening of the anterior abdominal wall. There is mild diffuse subcutaneous str anding. There is diffuse bladder wall thickening with trace nondependent intraluminal gas which may b e from recent instrumentation. Clinically correlate. Nonobstructive bowel gas pattern. There is ather osclerosis of the aorta without aneurysm. The spleen, pancreas, adrenal glands are unremarkable. Ther e is mild bilateral urothelial thickening and enhancement. Findings suspicious for ascending urinary tract infection. There is a severe chronic superior endplate compression fracture of L2 unchanged. Th ere is moderate degenerative disc disease at L3-4. Moderate lower lumbar spondylosis. IMPRESSION: 1. Diffuse bladder wall thickening with perivesical fatty infiltration and urothelial enhancement. Fi ndings suspicious for cystitis with ascending urinary tract infection. Clinically correlate. 2: Cholelithiasis. 3: Diffuse thickening of the skin along the anterior abdominal wall, nonspecific. Consider celluliti s in the appropriate clinical setting. Mild diffuse subcutaneous edema. Reviewed, dictated and finalized at location B. IMPRESSION: 1. Diffuse bladder wall thickening with perivesical fatty infiltration and urot helial enhancement. Findings suspicious for cystitis with ascending urinary tra ct infection. Clinically correlate. 2: Cholelithiasis. 3: Diffuse thickening of the skin along the anterior abdominal wall, nonspecif ic. Consider cellulitis in the appropriate clinical setting. Mild diffuse subcu taneous edema.
[2024-04-17] MEDS: SODIUM CHLORIDE 0.9% IV 1,000 ML 999 ML IV CONT (11:42)
--- NOTE | 2024-04-17 11:57 | ED.EXTPRO ---
HPI - Extremity Problem General Chief complaint: Abdominal Pain Stated complaint: Colostomy issues Time Seen by Provider: 04/17/24 11:35 History of Present Illness HPI Narrative: 68-year-old female presenting to the emergency department for evaluation for evaluation for ostomy that appears to be properly draining, but has an ostomy bag that was not placed properly. Patient does complain abdominal pain. Patient has rash across her abdomen secondary to the leaking ostomy bag. Upon arrival emergency department patient is colostomy bag was not properly secured and was leaking stool. Patient was also hypotensive upon arrival to the emergency department. Related Data Home Medications Medication Instructions Recorded Confirmed atorvastatin 10 mg tablet 10 mg PO HS 10/04/21 04/17/24 fluoxetine 20 mg capsule 40 mg PO DAILY 10/04/21 04/17/24 pantoprazole 40 mg tablet,delayed 40 mg PO QAM 10/04/21 04/17/24 release (Protonix) sodium bicarbonate 650 mg tablet 650 mg PO TID 10/04/21 04/17/24 insulin aspart U-100 100 unit/mL 20 unit subcut TID 12/01/22 04/17/24 (3 mL) subcutaneous pen (Novolog FlexPen U-100 Insulin aspart) insulin detemir U-100 100 unit/mL 55 unit subcut HS 12/01/22 04/17/24 (3 mL) subcutaneous pen (Levemir FlexPen) sitagliptin phosphate 25 mg tablet 25 mg PO DAILY 12/01/22 04/17/24 (Januvia) acetaminophen 325 mg tablet 650 mg PO QID PRN Pain (Scale 05/25/23 04/17/24 Score 1-3) cholecalciferol (vitamin D3) 50 50 mcg PO DAILY 05/25/23 04/17/24 mcg (2,000 unit) tablet miconazole nitrate 2 % topical 1 applic topical Q12H 05/25/23 04/17/24 cream (Antifungal (miconazole)) olopatadine 0.2 % eye drops 1 drp EACH EYE DAILY 05/25/23 04/17/24 glucagon 1 mg solution for 1 mg subcut PRN PRN Hypoglycemia 10/10/23 04/17/24 injection (Glucagon Emergency Kit) ascorbic acid (vitamin C) 1,000 mg PO DAILY 04/17/24 04/17/24 olanzapine 2.5 mg tablet (Zyprexa) 2.5 mg PO DAILY 04/17/24 04/17/24 ondansetron HCl 4 mg tablet 4 mg PO Q6H PRN Nausea And Vomiting 04/17/24 04/17/24 oxycodone-acetaminophen 5 mg-325 1 tablet PO Q4H PRN Pain (Scale 04/17/24 04/17/24 mg tablet Score 4-6) venlafaxine 75 mg capsule,extended 150 mg PO DAILY 04/17/24 04/17/24 release 24 hr Allergies Allergy/AdvReac Type Severity Reaction Status Date / Time No Known Allergies Allergy Verified 10/10/23 18:37 Review of Systems Review of Systems: All systems reviewed & are unremarkable except as noted in HPI and below PMFSH Past Medical History Medical History (Updated 04/17/24 @ 16:04 by Henry Cherry MD) Anemia Calculus of gallbladder without cholecystitis without obstruction Chronic kidney disease, stage 3b Depression with anxiety Diabetes mellitus Gastro-esophageal reflux disease without esophagitis History of colon cancer Hyperlipidemia Ileostomy in place Parastomal hernia without obstruction or gangrene Repeated falls Vascular dementia with behavioral disturbance Surgical History Surgical History History of total abdominal hysterectomy Hx of colectomy total abdominal colectomy and abdominoperineal resection with ileostomy Family History Family History Other Family history unknown Social History Social History Social History: Listed as DNR. She resides at [facility]. Never smoked. . No family listed on face sheet from the [place]. Smoking status: Former smoker Alcohol intake: never Substance use: never Substance use type: does not use Do You Feel Safe in your Home?: No Lack of Transportation: YES Lack of Food: Never True Current Housing: I Have Housing Concerned About Future Housing: No Difficulty Paying Gas/Electric Bills: No Difficulty Paying for Meds: No Currently Unemployed: No Education: Grade [employer]
[2024-04-17 12:07] LABS: Basophils Absolute Auto 0.1 K/mm3 (0.0-0.1); Basophils Percent Auto 0.8 % (0.2-1.2); Eosinophils Absolute Auto 0.2 K/mm3 (0-0.3); Eosinophils Percent Auto 2.8 % (0-4.4); Hemoglobin 10.7 g/dL (12.0-15.0); Immature Granulocyte Absolute 0.04 K/mm3 (0.00-0.031); Immature Granulocyte Percent A 0.5 % (0-0.5); Lymphocytes Absolute Auto 2.57 K/mm3 (0.9-3.2); Lymphocytes Percent Auto 32.6 % (18.3-44.2); Mean Corpuscular HGB Conc 29.7 g/dl (32-36); Mean Corpuscular Hemoglobin 24.6 pg (26-34); Mean Corpuscular Volume 82.8 fl (80-100); Mean Platelet Volume 8.5 fl (7.4-10.4); Monocytes Absolute Auto 1.2 K/mm3 (0.1-0.6); Neutrophils Absolute Auto 3.8 K/mm3 (1.3-6.7); Neutrophils Percent Auto 48.3 % (45.5-73.1); Platelet Count Result 330 k/mm3 (150-375); Red Blood Count 4.35 M/mm3 (4.2-5.4); Red Cell Distribution Width 15.6 % (11.5-14.5); White Blood Count 7.9 K/mm3 (4.5-10.0)
[2024-04-17] MEDS: SODIUM CHLORIDE 0.9% IV 1,000 ML 999 ML (12:09)
--- NOTE | 2024-04-17 12:14 | PC.NURSE ---
Spoke with Lexi FOLEY at [facility], patient reportedly is a/o 3 at baseline and has no known hypotension issues. RN at [facility] denies any recent falls.
[2024-04-17 12:16] LABS: Prothrombin Time 13.5 Seconds (11.1-14.7)
[2024-04-17 12:17] LABS: Partial Thromboplastin Time 27.5 Seconds (22.3-36.8)
[2024-04-17 12:19] LABS: Lactic Acid Reflex 2.5 mmol/L (0.7-2.0)
[2024-04-17 12:21] LABS: Alanine Aminotransferase 11 U/L (6-35); Albumin Level 3.9 g/dL (3.5-5.1); Alkaline Phosphatase 80 U/L (38-126); Anion Gap 12 mmol/L (4-12); Aspartate Amino Transferase 15 U/L (14-36); Bilirubin,Total 0.3 mg/dL (0.2-1.3); Blood Urea Nitrogen 24 mg/dL (7-17); Calcium 8.9 mg/dL (8.4-10.2); Carbon Dioxide 21 mmol/L (22-30); Chloride 103 mmol/L (98-107); Estimated Glomerular Filt Rate 41; Glucose 149 mg/dL (65-110); Sodium 136 mmol/L (137-145)
[2024-04-17] MEDS: SODIUM CHLORIDE 0.9% IV 1,000 ML 250 ML IV CONT (13:06)
[2024-04-17 15:05] LABS: Reflex Lactic Acid Yes or No Add Lactic
[2024-04-17 15:23] LABS: Appearance Urine Turbid (Clear); Bacteria Urine 2+ /hpf; Bilirubin Urine Negative (Negative); Blood Urine 2+ (Negative); Budding Yeast Urine Present /hpf; Color Urine Yellow (Yellow); Glucose Urine UA Negative (Negative); Ketones Urine Negative (Negative); Leukocyte Esterase Ur 3+ LEU/UL (Negative); Need Manual Microscopic Reviewed; Nitrate Urine Negative (Negative); Non Pathogenic Casts 0-2; Protein Urine 2+ mg/dL (Negative); Specific Grav Ur 1.028 (1.001-1.035); Squamous Epithelial Cell Urine Many /hpf (Few); Urobilinogen Urine 0.2 mg/dL (<2.0); WBC Urine >100 /hpf (0-3); pH Urine 5.5 (5.0-9.0)
[2024-04-17 15:25] LABS: Add Urine Microscopic? YES
[2024-04-17] MEDS: SODIUM CHLORIDE 0.9% IV 500 ML (15:38)
[2024-04-17] MEDS: MEROPENEM 1 GM/NS 100 ML 1 GM/100 ML BAG IVPB (16:29)
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
--- NOTE | 2024-04-17 18:55 | ADMGEN ---
This patient, Danii Mendez, was admitted to IMU Room 232-01. Patient/family oriented to hospital policies and general routines including ID bracelet, bed and alarms, visiting hours, pain management, procedures, bathroom and other care routines, personal items, smoking policy, room service/diet, and visiting hours. Information on how to activate the Rapid Response Team has been discussed. Patient/Family are encouraged to report perceived risks to care and to ask questions if they do not understand what they are told or what they should do.
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
[2024-04-17 20:17] LABS: Glucose Point of Care 277 mg/dl (65-105)
[2024-04-17] MEDS: SODIUM CHLORIDE 0.9% IV 1,000 ML 100 ML IV CONT (20:30)
[2024-04-17] MEDS: FLUCONAZOLE 100 MG TABLET 200 MG PO (20:31)
[2024-04-17] MEDS: ATORVASTATIN 10 MG TABLET PO (20:31)
[2024-04-17] MEDS: SODIUM BICARBONATE TAB 650 MG TABLET PO (20:31)
[2024-04-17] MEDS: INSULIN GLARGINE (*BKC) 100 UNITS/ML 55 UNITS SUB-Q (20:32)
[2024-04-17] MEDS: ACETAMINOPHEN 325 MG TABLET 650 MG PO (20:32)
[2024-04-17] MEDS: METOPROLOL TARTRATE 50 MG TAB PO (20:33)
[2024-04-17] MEDS: INSULIN ASPART (*BKC) 100 UNITS/ML SUB-Q (20:33)
[2024-04-18] VITALS (10 sets, daily range): BP systolic 106–136; BP diastolic 44–79; PULSE 67–92; RESP 16–22; TEMP 35.9–36.8; O2SAT 10–100
[2024-04-18] MEDS: oxyCODONE/ACETAMINOPHEN (*CRX) 5-325 MG TABLET 1 TABLET PO ×2 (05:02→20:53)
[2024-04-18 05:05] LABS: Basophils Absolute Auto 0.1 K/mm3 (0.0-0.1); Basophils Percent Auto 0.9 % (0.2-1.2); Eosinophils Absolute Auto 0.3 K/mm3 (0-0.3); Eosinophils Percent Auto 4.6 % (0-4.4); Hematocrit 32.8 % (37.0-47.0); Hemoglobin 9.7 g/dL (12.0-15.0); Immature Granulocyte Absolute 0.02 K/mm3 (0.00-0.031); Immature Granulocyte Percent A 0.4 % (0-0.5); Lymphocytes Absolute Auto 1.38 K/mm3 (0.9-3.2); Lymphocytes Percent Auto 25.2 % (18.3-44.2); Mean Corpuscular HGB Conc 29.6 g/dl (32-36); Mean Corpuscular Hemoglobin 25.2 pg (26-34); Mean Corpuscular Volume 85.2 fl (80-100); Mean Platelet Volume 8.4 fl (7.4-10.4); Monocytes Absolute Auto 0.8 K/mm3 (0.1-0.6); Monocytes Percent Auto 14.6 % (2.6-8.5); Neutrophils Percent Auto 54.3 % (45.5-73.1); Platelet Count Result 292 k/mm3 (150-375); Red Blood Count 3.85 M/mm3 (4.2-5.4); Red Cell Distribution Width 16.1 % (11.5-14.5); White Blood Count 5.5 K/mm3 (4.5-10.0)
[2024-04-18 05:07] LABS: Hemoglobin A1C 10.4 % (<5.7)
[2024-04-18 05:14] LABS: Alanine Aminotransferase 8 U/L (6-35); Albumin Level 3.1 g/dL (3.5-5.1); Alkaline Phosphatase 95 U/L (38-126); Anion Gap 9 mmol/L (4-12); Aspartate Amino Transferase 13 U/L (14-36); Bilirubin,Total 0.1 mg/dL (0.2-1.3); Blood Urea Nitrogen 13 mg/dL (7-17); Carbon Dioxide 17 mmol/L (22-30); Chloride 112 mmol/L (98-107); Estimated Glomerular Filt Rate > 60; Glucose 253 mg/dL (65-110); Hypochromasia 1+; Magnesium 1.9 mg/dL (1.6-2.3); Ovalocytes 1+; Platelet Estimate Adequate (Adequate); Potassium 3.9 mmol/L (3.4-5.0); Schistocytes None Seen; Sodium 138 mmol/L (137-145)
[2024-04-18] MEDS: MEROPENEM 1 GM/NS 100 ML 1 GM/100 ML BAG IVPB ×2 (06:13→20:53)
[2024-04-18] MEDS: SODIUM CHLORIDE 0.9% IV 1,000 ML 100 ML IV CONT (06:14)
[2024-04-18 07:29] LABS: Glucose Point of Care 230 mg/dl (65-105)
[2024-04-18] MEDS: VENLAFAXINE HCL XR 75 MG CAP.ER.24H 150 MG PO (09:04)
[2024-04-18] MEDS: methiMAzole 5 MG TAB PO (09:04)
[2024-04-18] MEDS: CHOLECALCIFEROL 1,000 UNITS TABLET 2000 UNITS PO (09:06)
[2024-04-18] MEDS: METOPROLOL TARTRATE 50 MG TAB PO ×2 (09:06→20:52)
[2024-04-18] MEDS: PANTOPRAZOLE 40 MG TABLET PO (09:06)
[2024-04-18] MEDS: OLANZapine 2.5 MG TABLET PO (09:06)
[2024-04-18] MEDS: FLUCONAZOLE 100 MG TABLET PO (09:06)
[2024-04-18] MEDS: ENOXAPARIN 30 MG/0.3 ML SYRINGE SUB-Q (09:07)
[2024-04-18] MEDS: FLUoxetine HCL 20 MG CAPSULE 40 MG PO (09:07)
[2024-04-18] MEDS: INSULIN ASPART (*BKC) 100 UNITS/ML 20 UNITS SUB-Q ×2 (09:07→12:41)
[2024-04-18] MEDS: OLOPATADINE 0.1% OPHTH SOLN 5 ML BTL 1 DROP EACH EYE (09:25)
[2024-04-18] MEDS: TOLNAFTATE 1% POWDER 45 GM BTL 1 APPLIC TOPICAL ×2 (09:25→20:59)
[2024-04-18] MEDS: SODIUM BICARBONATE TAB 650 MG TABLET PO ×3 (09:25→16:53)
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
[2024-04-18 11:26] LABS: Glucose Point of Care 156 mg/dl (65-105)
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
[2024-04-18 16:18] LABS: Glucose Point of Care 81 mg/dl (65-105)
[2024-04-18 16:51] LABS: Glucose Point of Care 82 mg/dl (65-105)
[2024-04-18] MEDS: ACETAMINOPHEN 325 MG TABLET 650 MG PO (17:02)
--- NOTE | 2024-04-18 17:48 | PC.NURSE ---
This patient, Danii Mendez, was received from IMU on 04/18/24 at 1730. Report received from Felisa, ALAINA. Patient/family oriented to unit policies and routines
[2024-04-18 19:27] LABS: Glucose Point of Care 204 mg/dl (65-105)
[2024-04-18] MEDS: ATORVASTATIN 10 MG TABLET PO (20:52)
[2024-04-18] MEDS: INSULIN ASPART (*BKC) 100 UNITS/ML SUB-Q (20:54)
[2024-04-18] MEDS: INSULIN GLARGINE (*BKC) 100 UNITS/ML 55 UNITS SUB-Q (20:54)
[2024-04-19 04:55] LABS: Glucose Point of Care 115 mg/dl (65-105)
[2024-04-19 05:17] VITALS: BP 152/66; PULSE 65; RESP 18; TEMP 36.6; O2SAT 100
--- NOTE | 2024-04-19 06:53 | PM.CNOR ---
Assessment and Plan Assessment and plan (1) Phalanx, proximal fracture of finger: Code(s): S62.619A - Displaced fracture of proximal phalanx of unspecified finger, initial encounter for closed fracture Status: Acute Assessment and Plan: Patient has a place fracture for 5th proximal phalanx I read recommend reduction proceed with a hematoma block. Then eve tape the fingers. We will reassess the office. She does have some rotational deformity I could try to correct as well. Discussed. Of note the patient does not recall how the fracture happened. History of Present Illness HPI Consult date: 04/19/24 Chief complaint: uti sepsis Review of Systems Musculoskeletal: Musculoskeletal: Reports arthralgias, Reports joint swelling and Reports stiffness [facility] Past Medical History Medical History (Updated 04/19/24 @ 06:55 by Arley Aguayo MD) Anemia Calculus of gallbladder without cholecystitis without obstruction Chronic kidney disease, stage 3b Depression with anxiety Diabetes mellitus Gastro-esophageal reflux disease without esophagitis History of colon cancer Hyperlipidemia Ileostomy in place Parastomal hernia without obstruction or gangrene Repeated falls Vascular dementia with behavioral disturbance Surgical History Surgical History History of total abdominal hysterectomy Hx of colectomy total abdominal colectomy and abdominoperineal resection with ileostomy Family History Family History Other Family history unknown Social History Social History Social History: Listed as DNR. She resides at [facility]. Never smoked. . No family listed on face sheet from the [place]. Smoking status: Former smoker Alcohol intake: never Substance use: never Substance use type: does not use Do You Feel Safe in your Home?: No Lack of Transportation: YES Lack of Food: Never True Current Housing: I Have Housing Concerned About Future Housing: No Difficulty Paying Gas/Electric Bills: No Difficulty Paying for Meds: No Currently Unemployed: No Education: Grade School Difficulty w/ Childcare or Family Care: No Spiritual care concerns: No Meds Home Medications and Allergies Home Medications Medication Instructions Recorded Confirmed Type atorvastatin 10 mg tablet 10 mg PO HS 10/04/21 04/17/24 History fluoxetine 20 mg capsule 40 mg PO DAILY 10/04/21 04/17/24 History pantoprazole 40 mg tablet,delayed 40 mg PO QAM 10/04/21 04/17/24 History release (Protonix) sodium bicarbonate 650 mg tablet 650 mg PO TID 10/04/21 04/17/24 History insulin aspart U-100 100 unit/mL 20 unit subcut TID 12/01/22 04/17/24 History (3 mL) subcutaneous pen (Novolog FlexPen U-100 Insulin aspart) insulin detemir U-100 100 unit/mL 55 unit subcut HS 12/01/22 04/17/24 History (3 mL) subcutaneous pen (Levemir FlexPen) sitagliptin phosphate 25 mg tablet 25 mg PO DAILY 12/01/22 04/17/24 History (Januvia) acetaminophen 325 mg tablet 650 mg PO QID PRN Pain (Scale 05/25/23 04/17/24 History Score 1-3) cholecalciferol (vitamin D3) 50 50 mcg PO DAILY 05/25/23 04/17/24 History mcg (2,000 unit) tablet miconazole nitrate 2 % topical 1 applic topical Q12H 05/25/23 04/17/24 History cream (Antifungal (miconazole)) olopatadine 0.2 % eye drops 1 drp EACH EYE DAILY 05/25/23 04/17/24 History methimazole 5 mg tablet 5 mg PO DAILY #30 tabs 05/28/23 04/17/24 Rx metoprolol tartrate 25 mg tablet 50 mg PO BID 30 days #0 tabs 05/28/23 04/17/24 Rx glucagon 1 mg solution for 1 mg subcut PRN PRN Hypoglycemia 10/10/23 04/17/24 History injection (Glucagon Emergency Kit) ascorbic acid (vitamin C) 1,000 mg PO DAILY 04/17/24 04/17/24 History olanzapine 2.5 mg tablet (Zyprexa) 2.5 mg PO DAILY 04/17/24 04/17/24 History onda
[2024-04-19] MEDS: oxyCODONE/ACETAMINOPHEN (*CRX) 5-325 MG TABLET 1 TABLET PO ×2 (07:47→17:49)
[2024-04-19 07:51] LABS: Glucose Point of Care 94 mg/dl (65-105)
[2024-04-19 07:59] VITALS: O2SAT 100
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
[2024-04-19 08:48] VITALS: PULSE 67
[2024-04-19] MEDS: FLUoxetine HCL 20 MG CAPSULE 40 MG PO (08:48)
[2024-04-19] MEDS: SODIUM BICARBONATE TAB 650 MG TABLET PO ×3 (08:48→17:47)
[2024-04-19] MEDS: CHOLECALCIFEROL 1,000 UNITS TABLET 2000 UNITS PO (08:48)
[2024-04-19] MEDS: PANTOPRAZOLE 40 MG TABLET PO (08:48)
[2024-04-19] MEDS: METOPROLOL TARTRATE 50 MG TAB PO (08:48)
[2024-04-19] MEDS: VENLAFAXINE HCL XR 75 MG CAP.ER.24H 150 MG PO (08:48)
[2024-04-19] MEDS: methiMAzole 5 MG TAB PO (08:48)
[2024-04-19] MEDS: FLUCONAZOLE 100 MG TABLET PO (08:48)
[2024-04-19] MEDS: OLANZapine 2.5 MG TABLET PO (08:48)
[2024-04-19] MEDS: OLOPATADINE 0.1% OPHTH SOLN 5 ML BTL 1 DROP EACH EYE (08:51)
[2024-04-19] MEDS: TOLNAFTATE 1% POWDER 45 GM BTL 1 APPLIC TOPICAL ×2 (08:52→21:03)
[2024-04-19] MEDS: MEROPENEM 1 GM/NS 100 ML 1 GM/100 ML BAG IVPB (09:11)
[2024-04-19] MEDS: ENOXAPARIN 30 MG/0.3 ML SYRINGE SUB-Q (09:13)
[2024-04-19 11:45] LABS: Glucose Point of Care 194 mg/dl (65-105)
[2024-04-19] MEDS: INSULIN ASPART (*BKC) 100 UNITS/ML 10 UNITS SUB-Q (12:28)
--- NOTE | 2024-04-19 13:02 | PCPTNOTE ---
attempted evaluation 3x today, pt was getting bath this morning, eating lunch this afternoon, and refused to get out of bed on last attempt stating she just got into bed , will follow
[2024-04-19 13:55] VITALS: BP 95/54; PULSE 71; RESP 16; TEMP 36.3; O2SAT 97
[2024-04-19 16:18] LABS: Hematocrit 31.4 % (37.0-47.0); Hemoglobin 9.4 g/dL (12.0-15.0); Immature Granulocyte Percent A 0.3 % (0-0.5); Lymphocytes Percent Auto 32.1 % (18.3-44.2); Mean Corpuscular HGB Conc 29.9 g/dl (32-36); Mean Corpuscular Hemoglobin 25.2 pg (26-34); Mean Corpuscular Volume 84.2 fl (80-100); Mean Platelet Volume 8.4 fl (7.4-10.4); Monocytes Percent Auto 16.4 % (2.6-8.5); Neutrophils Percent Auto 45.2 % (45.5-73.1); Platelet Count Result 263 k/mm3 (150-375); Red Blood Count 3.73 M/mm3 (4.2-5.4); White Blood Count 7.5 K/mm3 (4.5-10.0)
[2024-04-19 16:19] LABS: Basophils Absolute Auto 0.1 K/mm3 (0.0-0.1); Basophils Percent Auto 0.8 % (0.2-1.2); Eosinophils Absolute Auto 0.4 K/mm3 (0-0.3); Eosinophils Percent Auto 5.2 % (0-4.4); Immature Granulocyte Absolute 0.02 K/mm3 (0.00-0.031); Lymphocytes Absolute Auto 2.39 K/mm3 (0.9-3.2); Monocytes Absolute Auto 1.2 K/mm3 (0.1-0.6); Neutrophils Absolute Auto 3.4 K/mm3 (1.3-6.7)
[2024-04-19 16:29] LABS: Anion Gap 5 mmol/L (4-12); Blood Urea Nitrogen 13 mg/dL (7-17); Calcium 8.3 mg/dL (8.4-10.2); Carbon Dioxide 23 mmol/L (22-30); Chloride 108 mmol/L (98-107); Estimated Glomerular Filt Rate > 60; Glucose 68 mg/dL (65-110); Potassium 4.2 mmol/L (3.4-5.0); Sodium 136 mmol/L (137-145)
[2024-04-19 16:41] LABS: Glucose Point of Care 83 mg/dl (65-105)
[2024-04-19] MEDS: SODIUM CHLORIDE 0.9% IV 1,000 ML 125 ML IV CONT (17:46)
[2024-04-19 20:00] VITALS: PULSE 71; RESP 16; O2SAT 97
[2024-04-19] MEDS: INSULIN GLARGINE (*BKC) 100 UNITS/ML 55 UNITS SUB-Q (21:02)
[2024-04-19] MEDS: ATORVASTATIN 10 MG TABLET PO (21:03)
[2024-04-19 21:09] LABS: Glucose Point of Care 156 mg/dl (65-105)
[2024-04-19 21:43] VITALS: BP 123/64; PULSE 70; RESP 16; TEMP 36.4; O2SAT 100
[2024-04-20] MEDS: SODIUM CHLORIDE 0.9% IV 1,000 ML 125 ML IV CONT ×3 (02:28→20:45)
[2024-04-20 05:12] VITALS: BP 121/71; PULSE 75; RESP 18; TEMP 36.3; O2SAT 100
[2024-04-20] MEDS: oxyCODONE/ACETAMINOPHEN (*CRX) 5-325 MG TABLET 1 TABLET PO ×3 (05:48→22:48)
[2024-04-20 07:24] LABS: Glucose Point of Care 51 mg/dl (65-105)
[2024-04-20 07:46] LABS: Glucose Point of Care 65 mg/dl (65-105)
[2024-04-20] MEDS: ENOXAPARIN 30 MG/0.3 ML SYRINGE SUB-Q (07:54)
[2024-04-20] MEDS: GLUCOSE ORAL GEL 15 GM OF GLUCSE IN 37.5 GM TUBE PO (07:54)
[2024-04-20] MEDS: methiMAzole 5 MG TAB PO (07:55)
[2024-04-20] MEDS: OLANZapine 2.5 MG TABLET PO (07:55)
[2024-04-20] MEDS: FLUoxetine HCL 20 MG CAPSULE 40 MG PO (07:55)
[2024-04-20] MEDS: FLUCONAZOLE 100 MG TABLET PO (07:56)
[2024-04-20] MEDS: PANTOPRAZOLE 40 MG TABLET PO (07:56)
[2024-04-20] MEDS: CHOLECALCIFEROL 1,000 UNITS TABLET 2000 UNITS PO (07:56)
[2024-04-20] MEDS: VENLAFAXINE HCL XR 75 MG CAP.ER.24H 150 MG PO (07:56)
[2024-04-20] MEDS: TOLNAFTATE 1% POWDER 45 GM BTL 1 APPLIC TOPICAL ×2 (07:57→20:45)
[2024-04-20] MEDS: OLOPATADINE 0.1% OPHTH SOLN 5 ML BTL 1 DROP EACH EYE (07:58)
[2024-04-20] MEDS: SODIUM BICARBONATE TAB 650 MG TABLET PO ×3 (08:07→16:40)
[2024-04-20 09:18] LABS: Glucose Point of Care 126 mg/dl (65-105)
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
[2024-04-20 12:07] LABS: Glucose Point of Care 172 mg/dl (65-105)
[2024-04-20 14:00] VITALS: BP 120/56; PULSE 88; RESP 18; TEMP 36.7; O2SAT 90
[2024-04-20 16:09] LABS: Basophils Percent Auto 0.7 % (0.2-1.2); Eosinophils Absolute Auto 0.3 K/mm3 (0-0.3); Eosinophils Percent Auto 5.3 % (0-4.4); Hematocrit 30.3 % (37.0-47.0); Hemoglobin 9.8 g/dL (12.0-15.0); Immature Granulocyte Absolute 0.01 K/mm3 (0.00-0.031); Immature Granulocyte Percent A 0.2 % (0-0.5); Lymphocytes Percent Auto 32.3 % (18.3-44.2); Mean Corpuscular HGB Conc 32.3 g/dl (32-36); Mean Corpuscular Hemoglobin 27.1 pg (26-34); Mean Corpuscular Volume 83.7 fl (80-100); Mean Platelet Volume 8.7 fl (7.4-10.4); Monocytes Absolute Auto 0.7 K/mm3 (0.1-0.6); Monocytes Percent Auto 12.2 % (2.6-8.5); Neutrophils Absolute Auto 2.9 K/mm3 (1.3-6.7); Neutrophils Percent Auto 49.3 % (45.5-73.1); Platelet Count Result 265 k/mm3 (150-375); Red Blood Count 3.62 M/mm3 (4.2-5.4); Red Cell Distribution Width 15.9 % (11.5-14.5); White Blood Count 5.9 K/mm3 (4.5-10.0)
[2024-04-20 16:23] LABS: Anion Gap 11 mmol/L (4-12); Blood Urea Nitrogen 12 mg/dL (7-17); Calcium 7.7 mg/dL (8.4-10.2); Carbon Dioxide 16 mmol/L (22-30); Chloride 109 mmol/L (98-107); Estimated Glomerular Filt Rate > 60; Glucose 143 mg/dL (65-110); Potassium 3.9 mmol/L (3.4-5.0); Sodium 136 mmol/L (137-145)
[2024-04-20 16:33] LABS: Glucose Point of Care 150 mg/dl (65-105)
[2024-04-20 20:40] VITALS: PULSE 86; RESP 18; O2SAT 100
[2024-04-20] MEDS: ATORVASTATIN 10 MG TABLET PO (20:45)
[2024-04-20 20:56] LABS: Glucose Point of Care 112 mg/dl (65-105)
[2024-04-20 20:59] VITALS: BP 125/49; PULSE 86; RESP 18; TEMP 36.6; O2SAT 100
[2024-04-21] MEDS: SODIUM CHLORIDE 0.9% IV 1,000 ML 125 ML IV CONT ×3 (04:36→20:35)
[2024-04-21 05:15] VITALS: BP 154/83; PULSE 117; RESP 16; TEMP 36.8; O2SAT 100
[2024-04-21] MEDS: oxyCODONE/ACETAMINOPHEN (*CRX) 5-325 MG TABLET 1 TABLET PO ×3 (07:58→20:36)
[2024-04-21] MEDS: FLUoxetine HCL 20 MG CAPSULE 40 MG PO (08:01)
[2024-04-21] MEDS: SODIUM BICARBONATE TAB 650 MG TABLET PO ×3 (08:02→17:19)
[2024-04-21] MEDS: PANTOPRAZOLE 40 MG TABLET PO (08:02)
[2024-04-21] MEDS: VENLAFAXINE HCL XR 75 MG CAP.ER.24H 150 MG PO (08:02)
[2024-04-21] MEDS: CHOLECALCIFEROL 1,000 UNITS TABLET 2000 UNITS PO (08:02)
[2024-04-21] MEDS: methiMAzole 5 MG TAB PO (08:02)
[2024-04-21] MEDS: ENOXAPARIN 30 MG/0.3 ML SYRINGE SUB-Q (08:03)
[2024-04-21] MEDS: FLUCONAZOLE 100 MG TABLET PO (08:03)
[2024-04-21] MEDS: TOLNAFTATE 1% POWDER 45 GM BTL 1 APPLIC TOPICAL ×2 (08:04→20:37)
[2024-04-21] MEDS: OLOPATADINE 0.1% OPHTH SOLN 5 ML BTL 1 DROP EACH EYE (08:04)
[2024-04-21] MEDS: OLANZapine 2.5 MG TABLET PO (08:04)
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
--- NOTE | 2024-04-21 08:26 | PM.DS ---
DS: Summary Time Spent with Patient Time attestation: Total time spent providing and/or coordinating discharge services: DS: Data Data Completed and Pending Labs on day of discharge: Labs from last 24 hours 04/20/24 04/20/24 04/20/24 20:09 16:26 16:03 WBC 5.9 RBC 3.62 L Hgb 9.8 L Hct 30.3 L MCV 83.7 MCH 27.1 D MCHC 32.3 RDW 15.9 H Plt Count 265 MPV 8.7 Immature Gran % (Auto) 0.2 Neut % (Auto) 49.3 Lymph % (Auto) 32.3 Woodson % (Auto) 12.2 H Eos % (Auto) 5.3 H Baso % (Auto) 0.7 Lymph # (Auto) 1.90 Woodson # (Auto) 0.7 H Eos # (Auto) 0.3 Baso # (Auto) 0.0 Abs Immat Gran (auto) 0.01 Absolute Neuts (auto) 2.9 Absolute Nucleated RBC 0.000 Nucleated RBC % 0.0 Sodium 136 L Potassium 3.9 Chloride 109 H Carbon Dioxide 16 L Anion Gap 11 BUN 12 Creatinine 0.70 Estim Creat Clear Calc Not Reportable Estimated GFR > 60 Glucose 143 H POC Capillary Glucose 112 H 150 H Calcium 7.7 L 04/20/24 04/20/24 12:01 09:14 WBC RBC Hgb Hct MCV MCH MCHC RDW Plt Count MPV Immature Gran % (Auto) Neut % (Auto) Lymph % (Auto) Woodson % (Auto) Eos % (Auto) Baso % (Auto) Lymph # (Auto) Woodson # (Auto) Eos # (Auto) Baso # (Auto) Abs Immat Gran (auto) Absolute Neuts (auto) Absolute Nucleated RBC Nucleated RBC % Sodium Potassium Chloride Carbon Dioxide Anion Gap BUN Creatinine Estim Creat Clear Calc Estimated GFR Glucose POC Capillary Glucose 172 H 126 H Calcium Preliminary micro results at discharge 04/17/24 11:57 Blood Culture - Preliminary Blood Methicillin Resis Staph Aureus 04/17/24 12:07 Blood Culture - Preliminary Blood Discharge Plan Discharge Consulting providers: Arley Aguayo Discharge Medications: No Action Januvia 25 mg tablet 25 mg PO DAILY Levemir FlexPen 100 unit/mL (3 mL) insulin pen 55 unit subcut HS Rx Instructions: Call MD if accucheck is less than 70 at bedtime. insulin aspart U-100 [Novolog FlexPen U-100 Insulin] 100 unit/mL (3 mL) insulin pen 20 unit subcut TID Glucagon Emergency Kit (human) 1 mg recon soln 1 mg subcut PRN PRN (Reason: Hypoglycemia) Rx Instructions: blood sugar less than 60 atorvastatin 10 mg Tablet 10 mg PO HS sodium bicarbonate 650 mg Tablet 650 mg PO TID pantoprazole [Protonix] 40 mg Tablet,Delayed Release (Dr/Ec) 40 mg PO QAM fluoxetine 20 mg Capsule 40 mg PO DAILY olopatadine 0.2 % Drops 1 drp EACH EYE DAILY acetaminophen 325 mg Tablet 650 mg PO QID PRN (Reason: Pain (Scale Score 1-3)) cholecalciferol (vitamin D3) 50 mcg (2,000 unit) Tablet 50 mcg PO DAILY miconazole nitrate [Antifungal (miconazole)] 2 % Cream 1 applic TOPICAL Q12H methimazole 5 mg tablet 5 mg PO DAILY Qty: 30 0RF metoprolol tartrate 25 mg Tablet 50 mg PO BID 30 Days Qty: 0 0RF venlafaxine 75 mg capsule,extended release 24hr 150 mg PO DAILY ascorbic acid (vitamin C) 1,000 mg PO DAILY ondansetron HCl 4 mg Tablet 4 mg PO Q6H PRN (Reason: Nausea And Vomiting) olanzapine [Zyprexa] 2.5 mg Tablet 2.5 mg PO DAILY oxycodone-acetaminophen 5-325 mg tablet 1 tablet PO Q4H PRN (Reason: Pain (Scale Score 4-6)) Date of admission: 04/18/24 14:53 Primary Care Provider: UNKNOWN,DOCTOR Admitting Provider: Yun Hatch Attending physician on admission: Yun Htach Condition: Serious
[2024-04-21 08:37] LABS: Glucose Point of Care 185 mg/dl (65-105)
[2024-04-21] MEDS: VANCOMYCIN 1,500 MG/NS 500 ML BAG 250 MG IVPB (09:40)
[2024-04-21] MEDS: ENOXAPARIN 40 MG/0.4 ML SYRINGE SUB-Q (09:40)
[2024-04-21 11:59] LABS: Glucose Point of Care 175 mg/dl (65-105)
[2024-04-21 14:00] VITALS: BP 106/52; PULSE 66; RESP 18; TEMP 37.4; O2SAT 100
[2024-04-21 14:14] LABS: Anion Gap 10 mmol/L (4-12); Blood Urea Nitrogen 11 mg/dL (7-17); Calcium 8.4 mg/dL (8.4-10.2); Carbon Dioxide 20 mmol/L (22-30); Chloride 107 mmol/L (98-107); Estimated Glomerular Filt Rate > 60; Glucose 201 mg/dL (65-110); Sodium 137 mmol/L (137-145)
[2024-04-21 14:18] LABS: Basophils Absolute Auto 0.1 K/mm3 (0.0-0.1); Basophils Percent Auto 0.9 % (0.2-1.2); Eosinophils Absolute Auto 0.3 K/mm3 (0-0.3); Eosinophils Percent Auto 4.6 % (0-4.4); Hemoglobin 9.6 g/dL (12.0-15.0); Immature Granulocyte Absolute 0.02 K/mm3 (0.00-0.031); Immature Granulocyte Percent A 0.4 % (0-0.5); Lymphocytes Absolute Auto 1.58 K/mm3 (0.9-3.2); Mean Corpuscular Hemoglobin 25.1 pg (26-34); Mean Corpuscular Volume 83.6 fl (80-100); Monocytes Absolute Auto 0.6 K/mm3 (0.1-0.6); Monocytes Percent Auto 10.6 % (2.6-8.5); Neutrophils Absolute Auto 3.1 K/mm3 (1.3-6.7); Neutrophils Percent Auto 55.5 % (45.5-73.1); Platelet Count Result 329 k/mm3 (150-375); Red Blood Count 3.83 M/mm3 (4.2-5.4); Red Cell Distribution Width 15.8 % (11.5-14.5); White Blood Count 5.6 K/mm3 (4.5-10.0)
[2024-04-21] MEDS: CEFDINIR 300 MG CAPSULE PO ×2 (15:00→20:36)
[2024-04-21 16:33] LABS: Glucose Point of Care 206 mg/dl (65-105)
[2024-04-21 20:21] LABS: Glucose Point of Care 182 mg/dl (65-105)
[2024-04-21 20:23] VITALS: BP 104/48; PULSE 97; RESP 16; TEMP 36.8; O2SAT 100
[2024-04-21] MEDS: ATORVASTATIN 10 MG TABLET PO (20:36)
[2024-04-21] MEDS: INSULIN GLARGINE (*BKC) 100 UNITS/ML 20 UNITS SUB-Q (20:37)
[2024-04-22] MEDS: SODIUM CHLORIDE 0.9% IV 1,000 ML 125 ML IV CONT ×2 (04:21→20:03)
[2024-04-22 05:46] VITALS: BP 135/67; PULSE 110; RESP 16; TEMP 36.2; O2SAT 100
[2024-04-22 06:35] LABS: Estimated Glomerular Filt Rate > 60
[2024-04-22 07:29] LABS: Glucose Point of Care 148 mg/dl (65-105)
[2024-04-22 08:00] VITALS: PULSE 90; O2SAT 98
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
[2024-04-22] MEDS: SODIUM BICARBONATE TAB 650 MG TABLET PO ×3 (09:15→16:54)
[2024-04-22] MEDS: ENOXAPARIN 40 MG/0.4 ML SYRINGE SUB-Q (09:15)
[2024-04-22] MEDS: methiMAzole 5 MG TAB PO (09:15)
[2024-04-22] MEDS: PANTOPRAZOLE 40 MG TABLET PO (09:15)
[2024-04-22] MEDS: CHOLECALCIFEROL 1,000 UNITS TABLET 2000 UNITS PO (09:15)
[2024-04-22] MEDS: FLUCONAZOLE 100 MG TABLET PO (09:15)
[2024-04-22] MEDS: OLANZapine 2.5 MG TABLET PO (09:15)
[2024-04-22] MEDS: VENLAFAXINE HCL XR 75 MG CAP.ER.24H 150 MG PO (09:15)
[2024-04-22] MEDS: FLUoxetine HCL 20 MG CAPSULE 40 MG PO (09:16)
[2024-04-22] MEDS: OLOPATADINE 0.1% OPHTH SOLN 5 ML BTL 1 DROP EACH EYE (09:18)
[2024-04-22] MEDS: TOLNAFTATE 1% POWDER 45 GM BTL 1 APPLIC TOPICAL ×2 (09:18→20:05)
[2024-04-22] MEDS: CEFDINIR 300 MG CAPSULE PO ×2 (09:18→20:04)
[2024-04-22] MEDS: VANCOMYCIN 1,250 MG/NS 250 ML 1,250 MG/250 ML BAG 166.67 MG IVPB (11:12)
[2024-04-22] MEDS: oxyCODONE/ACETAMINOPHEN (*CRX) 5-325 MG TABLET 1 TABLET PO ×2 (11:12→20:04)
[2024-04-22 11:17] LABS: Glucose Point of Care 242 mg/dl (65-105)
[2024-04-22] MEDS: INSULIN ASPART (*BKC) 100 UNITS/ML SUB-Q ×3 (11:51→22:08)
[2024-04-22 14:00] VITALS: BP 127/60; PULSE 114; RESP 16; TEMP 36.3; O2SAT 99
[2024-04-22 16:17] LABS: Glucose Point of Care 226 mg/dl (65-105)
[2024-04-22] MEDS: ATORVASTATIN 10 MG TABLET PO (20:04)
[2024-04-22 22:00] VITALS: BP 124/66; PULSE 101; RESP 20; TEMP 36.6; O2SAT 100
[2024-04-22] MEDS: INSULIN GLARGINE (*BKC) 100 UNITS/ML 20 UNITS SUB-Q (22:09)
[2024-04-23] MEDS: oxyCODONE/ACETAMINOPHEN (*CRX) 5-325 MG TABLET 1 TABLET PO ×2 (02:02→08:43)
[2024-04-23] MEDS: SODIUM CHLORIDE 0.9% IV 1,000 ML 125 ML IV CONT (04:26)
[2024-04-23 06:00] VITALS: BP 139/71; PULSE 112; RESP 20; TEMP 36.4; O2SAT 99
[2024-04-23 06:37] LABS: Glucose Point of Care 213 mg/dl (65-105)
--- NOTE | 2024-04-23 06:41 | PC.NURSE ---
I have reviewed the LPNs charting at this time and I agree with the documentation. Will continue to monitor patient at this time.
[2024-04-23 07:49] LABS: Glucose Point of Care 201 mg/dl (65-105)
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
[2024-04-23] MEDS: INSULIN ASPART (*BKC) 100 UNITS/ML SUB-Q ×2 (08:01→11:44)
[2024-04-23] MEDS: ENOXAPARIN 40 MG/0.4 ML SYRINGE SUB-Q (08:37)
[2024-04-23] MEDS: CHOLECALCIFEROL 1,000 UNITS TABLET 2000 UNITS PO (08:37)
[2024-04-23] MEDS: CEFDINIR 300 MG CAPSULE PO (08:37)
[2024-04-23] MEDS: VENLAFAXINE HCL XR 75 MG CAP.ER.24H 150 MG PO (08:37)
[2024-04-23] MEDS: OLANZapine 2.5 MG TABLET PO (08:37)
[2024-04-23] MEDS: SODIUM BICARBONATE TAB 650 MG TABLET PO ×2 (08:38→12:08)
[2024-04-23] MEDS: FLUoxetine HCL 20 MG CAPSULE 40 MG PO (08:38)
[2024-04-23] MEDS: FLUCONAZOLE 100 MG TABLET PO (08:38)
[2024-04-23] MEDS: PANTOPRAZOLE 40 MG TABLET PO (08:38)
[2024-04-23] MEDS: methiMAzole 5 MG TAB PO (08:38)
[2024-04-23] MEDS: OLOPATADINE 0.1% OPHTH SOLN 5 ML BTL 1 DROP EACH EYE (08:38)
[2024-04-23] MEDS: TOLNAFTATE 1% POWDER 45 GM BTL 1 APPLIC TOPICAL (08:39)
[2024-04-23 09:23] LABS: Hematocrit 31.6 % (37.0-47.0); Hemoglobin 9.4 g/dL (12.0-15.0); Mean Corpuscular HGB Conc 29.7 g/dl (32-36); Mean Corpuscular Hemoglobin 24.4 pg (26-34); Mean Corpuscular Volume 81.9 fl (80-100); Mean Platelet Volume 8.2 fl (7.4-10.4); Platelet Count Result 274 k/mm3 (150-375); Red Blood Count 3.86 M/mm3 (4.2-5.4); Red Cell Distribution Width 15.7 % (11.5-14.5); White Blood Count 7.2 K/mm3 (4.5-10.0)
[2024-04-23 09:44] LABS: Anion Gap 12 mmol/L (4-12); Blood Urea Nitrogen 9 mg/dL (7-17); Calcium 8.4 mg/dL (8.4-10.2); Carbon Dioxide 18 mmol/L (22-30); Chloride 106 mmol/L (98-107); Estimated Glomerular Filt Rate > 60; Glucose 254 mg/dL (65-110); Potassium 3.7 mmol/L (3.4-5.0); Sodium 136 mmol/L (137-145)
[2024-04-23 09:46] LABS: Vancomycin Trough 11.9 ug/mL (10.0-20.0)
[2024-04-23] MEDS: VANCOMYCIN 1,250 MG/NS 250 ML 1,250 MG/250 ML BAG 166.67 MG IVPB (10:41)
[2024-04-23 11:51] LABS: Glucose Point of Care 242 mg/dl (65-105)
[2024-04-23 14:00] VITALS: BP 98/64; PULSE 110; RESP 18; TEMP 36.2; O2SAT 99
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
== END 2024-04-23 14:35 | DRG 872 ==
LOC: ANHED 16:04 → ANHIMU 16:55 → ANH3MEDSUR 04-23 11:42 → ANHIMU 04-24 08:32
PROVIDERS: Admitting Provider General Practice; Emergency Provider Emergency Medicine; Visit Provider Hospitalist
DX: A41.9 Sepsis, unspecified organism (principal); L03.311 Cellulitis of abdominal wall; E87.21 Acute metabolic acidosis; F01.518 Vascular dementia, unspecified severity, with other behavioral disturbance; T76.01XA Adult neglect or abandonment, suspected, initial encounter; N39.0 Urinary tract infection, site not specified; B96.1 Klebsiella pneumoniae [K. pneumoniae] as the cause of diseases classified elsewhere; R65.20 Severe sepsis without septic shock; B37.2 Candidiasis of skin and nail; D64.9 Anemia, unspecified; N18.30 Chronic kidney disease, stage 3 unspecified; E11.22 Type 2 diabetes mellitus with diabetic chronic kidney disease; S62.646A Nondisplaced fracture of proximal phalanx of right little finger, initial encounter for closed fracture; E78.5 Hyperlipidemia, unspecified; E05.90 Thyrotoxicosis, unspecified without thyrotoxic crisis or storm; K21.9 Gastro-esophageal reflux disease without esophagitis; Z66 Do not resuscitate; F41.8 Other specified anxiety disorders; R29.6 Repeated falls; F41.9 Anxiety disorder, unspecified; F32.A Depression, unspecified; X58.XXXA Exposure to other specified factors, initial encounter; Z79.4 Long term (current) use of insulin; Z85.038 Personal history of other malignant neoplasm of large intestine; Z93.2 Ileostomy status; Z90.710 Acquired absence of both cervix and uterus
CPT/HCPCS: 36415; 73120; 73140; 74177; 80048; 80053; 80202; 81001; 82565; 82948; 83036; 83605; 83735; 85025; 85027; 85610; 85730; 87040; 87077; 87086; 87088; 87181; 87186; 96361; 96365; 97110; 97161; 97165; 97530; 99285; A9270; G0378; J0696; J1650; J1815; J2185; J3370; J7030; J7040; Q9967